=== PATIENT | male | born 1985 | race Hispanic/Latino ===

== ENCOUNTER 2020-03-29 05:39 | Emergency (ER) | payer SELFPAY ==
[2020-03-29] MEDS ORDERED: dexAMETHasone 10 MG/ML VIAL ONE (06:44)
[2020-03-29] MEDS ORDERED: NA CHLORIDE 0.9% 1,000 ML ONE (06:45)
[2020-03-29] MEDS ORDERED: KETOROLAC 30 MG/ML INJ ONE (06:45)
[2020-03-29] MEDS ORDERED: FAMOTIDINE 20 MG/2 ML VIAL IV ONE (06:45)
[2020-03-29 06:55] LABS: Absolute Lymphocytes (CBC) 2.3 K/uL (0.7-4.9); Basophils % 0.9 % (0-1.3); Lymphocytes % 11.7 % (15.3-44.8); MPV 9.1 fL (7.6-11.3); RBC Red Blood Cell Count 5.09 M/uL (4.33-5.43)
[2020-03-29 07:19] LABS: ALT/SGPT 156 U/L (12-78); AST/SGOT 54 U/L (15-37); Alkaline Phosphatase 154 U/L (45-117); BUN Blood Urea Nitrogen 18 mg/dL (7-18); Bicarbonate 25 mmol/L (21-32); Bilirubin Total 0.2 mg/dL (0.2-1.0); Glucose Level 253 mg/dL (74-106); Potassium 3.7 mmol/L (3.5-5.1); Protein, Total 6.5 g/dL (6.4-8.2); Sodium Level 136 mmol/L (136-145)
--- NOTE | 2020-03-29 07:24 | EDPHYS ---
Physician Documentation [facility] Name: Charli Foy Age: 34 yrs Sex: Male : 1985 Arrival Date: 03/29/2020 Time: 05:40 Bed 2 Private MD: ED Physician Johny Valentine HPI: 03/29 06:15 This 34 yrs old Male presents to ER via Wheelchair with complaints of Knee mallory Injury. 06:15 The patient presents with decreased range of motion, pain, that is acute. The mallory complaints affect the right leg and left leg. Context: The problem was sustained at an unknown site. Onset: The symptoms/episode began/occurred 4 day(s) ago. Modifying factors: The symptoms are alleviated by elevating leg, remaining still, the symptoms are aggravated by movement, weight bearing. Associated signs and symptoms: The patient has no apparent associated signs or symptoms. Treatment prior to arrival includes: prescription medications, nsaids. Severity of symptoms: At their worst the symptoms were moderate, in the emergency department the symptoms are unchanged. The patient has not experienced similar symptoms in the past. Historical: - Allergies: 08:24 No Known Allergies; hb - Home Meds: 06:06 None [Active]; ea - PMHx: 06:06 None; ea - PSHx: 06:06 None; ea - Immunization history:: Adult Immunizations up to date. - Social history:: Smoking status: Patient reports the use of cigarette tobacco products, smokes one-half pack cigarettes per day. - Family history:: not pertinent. ROS: 06:15 Constitutional: Negative for fever, chills, and weight loss, Eyes: Negative for injury, mallory pain, redness, and discharge, ENT: Negative for injury, pain, and discharge, Neck: Negative for injury, pain, and swelling, Cardiovascular: Negative for chest pain, palpitations, and edema, Respiratory: Negative for shortness of breath, cough, wheezing, and pleuritic chest pain, Abdomen/GI: Negative for abdominal pain, nausea, vomiting, diarrhea, and constipation, Back: Negative for injury and pain, : Negative for injury, bleeding, discharge, and swelling, Skin: Negative for injury, rash, and discoloration, Neuro: Negative for headache, weakness, numbness, tingling, and seizure, Psych: Negative for depression, anxiety, suicide ideation, homicidal ideation, and hallucinations, Allergy/Immunology: Negative for hives, rash, and allergies, Endocrine: Negative for neck swelling, polydipsia, polyuria, polyphagia, and marked weight changes, Hematologic/Lymphatic: Negative for swollen nodes, abnormal bleeding, and unusual bruising. 06:15 MS/extremity: Positive for decreased range of motion, pain, of the lateral aspect of left knee, left lateral ankle, posterior aspect of left knee, medial aspect of left knee, left medial ankle, left knee and anterior aspect of left ankle. Exam: 06:15 Constitutional: This is a well developed, well nourished patient who is awake, alert, mallory and in no acute distress. Head/Face: Normocephalic, atraumatic. Eyes: Pupils equal round and reactive to light, extra-ocular motions intact. Lids and lashes normal. Conjunctiva and sclera are non-icteric and not injected. Cornea within normal limits. Periorbital areas with no swelling, redness, or edema. ENT: Nares patent. No nasal discharge, no septal abnormalities noted. Tympanic membranes are normal and external auditory canals are clear. Oropharynx with no redness, swelling, or masses, exudates, or evidence of obstruction, uvula midline. Mucous membranes moist. Neck: Trachea midline, no thyromegaly or masses palpated, and no cervical lymphadenopathy. Supple, full range of motion without nuchal rigidity, or vertebral point tenderness. No Meningismus. Chest/axilla: Normal chest wall appearance and motion. Nontender with no deformity. No lesions are appreciated. Cardiovascular: Regular rate and rhythm with a normal S1 and S2. No gallops, murmurs, or rubs. Normal PMI, no JVD. No pulse deficits. Respiratory: Lungs have equal breath sounds bilaterally, clear to auscultation and percussion. No rales, rhonchi or wheezes noted. No increased work of breathing, no retractions or nasal flaring. Abdomen/GI: Soft, non-tender, with normal bowel sounds. No distension or tympany. No guarding or rebound. No evidence of tenderness throughout. Back: No spinal tenderness. No costovertebral tenderness. Full range of motion. Male : Normal genitalia with no discharge or lesions. Skin: Warm, dry with normal turgor. Normal color with no rashes, no lesions, and no evidence of cellulitis. Neuro: Awake and alert, GCS 15, oriented to person, place, time, and situation. Cranial nerves II-XII grossly intact. Motor strength 5/5 in all extremities. Sensory grossly intact. Cerebellar exam normal. Normal gait. Psych: Awake, alert, with orientation to person, place and time. Behavior, mood, and affect are within normal limits. 06:15 Musculoskeletal/extremity: ROM: limited active range of motion due to pain, limited passive range of motion due to pain, in the right leg and left leg, Circulation is intact in all extremities. Sensation intact. DVT Exam: no swelling, negative Homans' sign noted on exam, no appreciated bluish discoloration, no erythema, no increased warmth, pain, tenderness. 07:17 Musculoskeletal/extremity: Joints: no effusion in joints, normal passive rom of both mallory knees and ankles, no cellulitis. Vital Signs: 06:02 BP 141 / 78; Pulse 75; Resp 18; Temp 98.3; Pulse Ox 99% ; Weight 90.72 kg; Height 5 ft. ea 3 in. (160.02 cm); Pain 9/10; 06:02 Body Mass Index 35.43 (90.72 kg, 160.02 cm) ea MDM: 06:05 Patient medically screened. [facility] 06:20 Differential diagnosis: contusion, tendonitis. Data reviewed: vital signs, nurses [facility] notes, lab test result(s). 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 Counseling: I had a detailed discussion with the patient and/or guardian regarding: the historical points, exam findings, and any diagnostic results supporting the discharge/admit diagnosis. 03/29 06:13 Order name: CBC with Diff [facility] 03/29 06:13 Order name: Comprehensive Metabolic Panel; Complete Time: 07:21 [facility] 03/29 06:13 Order name: Sed Rate [facility] 03/29 07:23 Order name: Blood Culture Adult (2) [facility] 03/29 08:12 Order name: Manual Differential EDMS Administered Medications: 06:46 Drug: TORadol 30 mg Route: IVP; Site: left antecubital; ea 07:30 Follow up: Response: No adverse reaction hb 06:47 Drug: NS 0.9% 1000 ml Route: IV; Rate: 1 bolus; Site: left antecubital; ea 07:30 Follow up: Response: No adverse reaction; IV Status: Completed infusion; IV Intake: hb 1000ml 06:47 Drug: Decadron - Dexamethasone 10 mg Route: IVP; Site: left antecubital; ea 07:30 Follow up: Response: No adverse reaction hb 06:47 Drug: Pepcid 20 mg Route: IVP; Site: left antecubital; ea 07:30 Follow up: Response: No adverse reaction hb 08:15 Drug: morphine 4 mg Route: IVP; Site: left antecubital; hb 08:38 Follow up: Response: No adverse reaction hb 08:15 Drug: Zofran (Ondansetron) 4 mg Route: IVP; Site: left antecubital; hb 08:38 Follow up: Response: No adverse reaction hb 08:25 Drug: Rocephin 2 grams Route: IV; Rate: per protocol; Site: left antecubital; hb 08:26 Follow up: Response: No adverse reaction; IV Status: Completed infusion; IV Intake: 20mlhb Disposition: 03/29/20 07:24 Discharged to Home. Impression: Pain in left knee, Pain in right knee, Pain in left ankle and joints of left foot, Pain in right ankle and joints of right foot, Elevated white blood cell count, Hyperglycemia, unspecified. - Condition is Stable. - Discharge Instructions: Joint Pain, Arthritis, Hyperglycemia, Musculoskeletal Pain, Knee Pain, Cryotherapy, Immj-ht-Phml, Arthritis, Tkur-wz-Jnnp, Ankle Pain, Cryotherapy, Type 2 Diabetes Mellitus, Diagnosis, Adult, Wiuv-nm-Rsmc, Knee Pain, Pyvd-gm-Dpkx, Joint Pain, Okya-fe-Rbqi. - Prescriptions for Ibuprofen 600 mg Oral Tablet - take 1 tablet by ORAL route every 6 hours As needed take with food; 30 tablet. Tylenol- Codeine #3 300-30 mg Oral Tablet - take 2 tablets by ORAL route every 6 hours As needed; 20 tablet. Prednisone 20 mg Oral Tablet - take 2 tablet by ORAL route once daily for 5 days; 10 tablet. - Medication Reconciliation Form, Thank You Letter, Antibiotic Education, Prescription Opioid Use, Work release form form. - Follow up: Private Physician; When: 2 - 3 days; Reason: If symptoms return, Recheck today's complaints, Continuance of care, Re-evaluation by your physician. Follow up: Dr. Selvin Meyers; When: 2 - 3 days; Reason: Recheck today's complaints, Re-evaluation by your physician. - Problem is new. - Symptoms have improved. Signatures: Dispatcher [employer] EDJohny Carreon MD MD cha Smirch, Shelby, RN RN ss Baxter, Heather, RN RN hb Antunez, Elena, RN RN ea Corrections: (The following items were deleted from the chart) 08:56 07:24 03/29/2020 07:24 Discharged to Home. Impression: Pain in left knee; Pain in right ss knee; Pain in left ankle and joints of left foot; Pain in right ankle and joints of right foot; Elevated white blood cell count; Hyperglycemia, unspecified. Condition is Stable. Discharge Instructions: Joint Pain, Arthritis, Musculoskeletal Pain, Knee Pain, Cryotherapy, Xgpc-nw-Aaaw, Arthritis, Zicu-nn-Vgho, Ankle Pain, Cryotherapy, Knee Pain, Tfoc-nf-Zggy, Joint Pain, Nzly-dl-Juqt. Prescriptions for Ibuprofen 600 mg Oral Tablet - take 1 tablet by ORAL route every 6 hours As needed take with food; 30 tablet, Tylenol-Codeine #3 300-30 mg Oral Tablet - take 2 tablets by ORAL route every 6 hours As needed; 20 tablet, Medrol (Ramiro) 4 mg Oral Tablets, Dose Pack - take 1 tablet by ORAL route as directed - follow package instructions; 1 packet. and Forms are Medication Reconciliation Form, Thank You Letter, Antibiotic Education, Prescription Opioid Use. Follow up: Private Physician; When: 2 - 3 days; Reason: If symptoms return, Recheck today's complaints, Continuance of care, Re-evaluation by your physician. Follow up: Dr. Selvin Meyers; When: 2 - 3 days; Reason: Recheck today's complaints, Re-evaluation by your physician. Problem is new. Symptoms have improved. mallory
--- NOTE | 2020-03-29 07:24 | ER ---
Nurse's Notes [facility] Name: Charli Foy Age: 34 yrs Sex: Male : 1985 Arrival Date: 03/29/2020 Time: 05:40 Bed 2 Private MD: Diagnosis: Pain in left knee;Pain in right knee;Pain in left ankle and joints of left foot;Pain in right ankle and joints of right foot;Elevated white blood cell count;Hyperglycemia, unspecified Presentation: 03/29 06:02 Chief complaint: Patient states: Reports he has been having pain to quinn knees and ea ankles for the past 3 to 4 days. Denies trauma. Coronavirus screen: At this time, the client does not indicate any symptoms associated with coronavirus-19. Ebola Screen: No symptoms or risks identified at this time. Initial Sepsis Screen: Does the patient meet any 2 criteria? No. Patient's initial sepsis screen is negative. Does the patient have a suspected source of infection? No. Patient's initial sepsis screen is negative. Risk Assessment: Do you want to hurt yourself or someone else? Patient reports no desire to harm self or others. Onset of symptoms was March 29, 2020. 06:02 Method Of Arrival: Wheelchair ea 06:02 Acuity: DIMITRIS 3 ea Triage Assessment: 06:06 General: Appears in no apparent distress. Behavior is appropriate for age. Pain: ea Complains of pain in right knee and left knee. Musculoskeletal: Circulation, motion, and sensation intact. Injury Description: denies injury. Historical: - Allergies: 08:24 No Known Allergies; hb - Home Meds: 06:06 None [Active]; ea - PMHx: 06:06 None; ea - PSHx: 06:06 None; ea - Immunization history:: Adult Immunizations up to date. - Social history:: Smoking status: Patient reports the use of cigarette tobacco products, smokes one-half pack cigarettes per day. - Family history:: not pertinent. Screenin:05 Abuse screen: Denies threats or abuse. Nutritional screening: No deficits noted. ea Tuberculosis screening: No symptoms or risk factors identified. Fall Risk None identified. Assessment: 06:06 Reassessment: see triage assessment. ea Vital Signs: 06:02 BP 141 / 78; Pulse 75; Resp 18; Temp 98.3; Pulse Ox 99% ; Weight 90.72 kg; Height 5 ft. ea 3 in. (160.02 cm); Pain 9/10; 06:02 Body Mass Index 35.43 (90.72 kg, 160.02 cm) ea ED Course: 05:40 Patient arrived in ED. cf2 06:05 Triage completed. ea 06:05 Johny Valentine MD is Attending Physician. mallory 06:05 Patient has correct armband on for positive identification. Bed in low position. Call ea light in reach. Side rails up X2. Pulse ox on. NIBP on. 06:05 Patient placed in an exam room, on a stretcher, on pulse oximetry. ea 06:46 Inserted saline lock: 20 gauge in left antecubital area, using aseptic technique. Blood ea collected. 07:23 Selvin Meyers MD is Referral Physician. mallory 07:53 Hanh Tavares, GAYLE is Primary Nurse. hb 08:48 No provider procedures requiring assistance completed. IV discontinued, intact, hb bleeding controlled, No redness/swelling at site. Administered Medications: 06:46 Drug: TORadol 30 mg Route: IVP; Site: left antecubital; ea 07:30 Follow up: Response: No adverse reaction hb 06:47 Drug: NS 0.9% 1000 ml Route: IV; Rate: 1 bolus; Site: left antecubital; ea 07:30 Follow up: Response: No adverse reaction; IV Status: Completed infusion; IV Intake: hb 1000ml 06:47 Drug: Decadron - Dexamethasone 10 mg Route: IVP; Site: left antecubital; ea 07:30 Follow up: Response: No adverse reaction hb 06:47 Drug: Pepcid 20 mg Route: IVP; Site: left antecubital; ea 07:30 Follow up: Response: No adverse reaction hb 08:15 Drug: morphine 4 mg Route: IVP; Site: left antecubital; hb 08:38 Follow up: Response: No adverse reaction hb 08:15 Drug: Zofran (Ondansetron) 4 mg Route: IVP; Site: left antecubital; hb 08:38 Follow up: Response: No adverse reaction hb 08:25 Drug: Rocephin 2 grams Route: IV; Rate: per protocol; Site: left antecubital; hb 08:26 Follow up: Response: No adverse reaction; IV Status: Completed infusion; IV Intake: 20mlhb Intake: 07:30 IV: 1000ml; Total: 1000ml. hb 08:26 IV: 20ml; Total: 1020ml. hb Outcome: 07:24 Discharge ordered by . mallory 08:48 Discharged to home ambulatory. hb 08:48 Condition: stable 08:48 Discharge instructions given to patient, Instructed on discharge instructions, follow up and referral plans. medication usage, Demonstrated understanding of instructions, follow-up care, medications, Prescriptions given X 3. 08:56 Patient left the ED. Addendum: 04/02/2020 10:02 Addendum: Culture Results: Positive blood culture. No further action required. Other: s v Pt feeling better, denies chills/fever at home. Pt reports that he will be finding a PCP for pain management.. Signatures: Yessi An, RN Johny Hernandez MD MD cha Smirch, Shelby, RN RN ss Baxter, Heather, RN RN hb Antunez, Elena RN Jhony De LaR osa ea 2
[2020-03-29 08:12] LABS: Blood Morphology Comment NOT SEEN (NOT SEEN); Platelet Estimate ADEQ
[2020-03-29 09:01] VITALS: BP 141/78; TEMP 98.3; O2SAT 99
== END 2020-03-29 08:56 | disposition home or self-care (01) ==
LOC: ER 05:39
DX: M25.561 Pain in right knee (principal); M25.562 Pain in left knee; M25.571 Pain in right ankle and joints of right foot; M25.572 Pain in left ankle and joints of left foot; D72.829 Elevated white blood cell count, unspecified; R73.9 Hyperglycemia, unspecified; F17.210 Nicotine dependence, cigarettes, uncomplicated
CPT/HCPCS: 36415; 80053; 85025; 85652; 87040; 87077; 87186; 87205; 96361; 96374; 96375; 99284; J1100; J7030

== ENCOUNTER 2022-01-02 21:10 | Emergency (ER) | payer SELFPAY ==
[2022-01-02] MEDS ORDERED: dexAMETHasone 10 MG/ML VIAL ONE (21:28)
--- NOTE | 2022-01-02 22:03 | ER ---
Nurse's Notes [facility] Name: Charli Foy Age: 36 yrs Sex: Male : 1985 Arrival Date: 01/02/2022 Time: 21:14 Bed 11 Private MD: Diagnosis: Acute tonsillitis, unspecified Presentation: 01/02 21:18 Chief complaint: Sore throat x 4 days, fever x 2 days. TMAX 101. Coronavirus screen: hb Client presents with at least one sign or symptom that may indicate coronavirus-19. Standard/surgical mask placed on the client. Provider contacted for isolation considerations. Ebola Screen: No symptoms or risks identified at this time. Initial Sepsis Screen: Does the patient meet any 2 criteria? No. Patient's initial sepsis screen is negative. Does the patient have a suspected source of infection? No. Patient's initial sepsis screen is negative. Risk Assessment: Do you want to hurt yourself or someone else? Patient reports no desire to harm self or others. Onset of symptoms was December 29, 2021. 21:18 Method Of Arrival: Ambulatory 21:18 Acuity: DIMITRIS 4 hb Triage Assessment: 21:20 General: Appears in no apparent distress. Behavior is calm, cooperative. Pain: Pain hb currently is 8 out of 10 on a pain scale. Neuro: Level of Consciousness is awake, alert, obeys commands, Oriented to person, place, time, situation. Cardiovascular: Patient's skin is warm and dry. Respiratory: Respiratory effort is even, unlabored, Respiratory pattern is regular, symmetrical. Historical: - Allergies: 21:20 No Known Allergies; hb - Home Meds: 21:20 None [Active]; hb - PMHx: 21:20 None; hb - PSHx: 21:20 None; hb - Immunization history:: Adult Immunizations up to date, Client reports having NOT received the Covid vaccine. - Social history:: Smoking status: Patient denies any tobacco usage or history of. Screenin:40 Abuse screen: Denies threats or abuse. Denies injuries from another. Nutritional kb3 screening: No deficits noted. Tuberculosis screening: No symptoms or risk factors identified. Fall Risk None identified. Assessment: 21:39 General: Appears in no apparent distress. Behavior is calm, cooperative, Pt reports kb3 sore throat x4 days with fever x2 kartik. EENT: Throat is reddened. Vital Signs: 21:18 BP 136 / 86; Pulse 88; Resp 16; Temp 99.1; Pulse Ox 100% on R/A; Weight 90.72 kg; hb Height 5 ft. 8 in. (172.72 cm); Pain 8/10; 21:18 Body Mass Index 30.41 (90.72 kg, 172.72 cm) hb ED Course: 21:14 Patient arrived in ED. ja2 21:16 Demet[facility] Desou[facility]C [facility]. kb 21:16 Jb Melendez MD is Attending Physician. kb 21:20 Triage completed. hb 21:20 Arm band placed on. hb 21:37 Tessa Justice, RN is Primary Nurse. kb3 21:38 Strep Sent. kb3 21:40 Patient has correct armband on for positive identification. Call light in reach. Side kb3 rails up X 1. 21:40 No provider procedures requiring assistance completed. Patient did not have IV access kb3 during this emergency room visit. Administered Medications: 21:32 Drug: Decadron (dexamethasone) 10 mg Route: PO; kb3 22:09 Drug: Augmentin (Amoxicillin-Clavulanate) 875 mg Route: PO; kb3 Medication: 21:40 VIS not applicable for this client. kb3 Outcome: 22:02 Discharge ordered by . kb 22:09 Patient left the ED. kb3 Signatures: Demetria Desouza FNP-C FNP-Ckb Baxter, Heather, RN RN Evy Tavarez [facility] Tessa Justice, RN RN kb3
--- NOTE | 2022-01-02 22:03 | EDPHYS ---
Physician Documentation [facility] Name: Charli Foy Age: 36 yrs Sex: Male : 1985 Arrival Date: 01/02/2022 Time: 21:14 Bed 11 Private MD: ED Physician Jb Melendez HPI: 01/02 22:01 This 36 yrs old Male presents to ER via Ambulatory with complaints of Throat kb Pain. 22:01 The patient presents with sore throat. The patient describes throat pain as constant. kb Onset: The symptoms/episode began/occurred 4 day(s) ago. Severity of symptoms: At their worst the symptoms were moderate, in the emergency department the symptoms are unchanged. Modifying factors: The symptoms are alleviated by nothing, the symptoms are aggravated by swallowing, Patient's oral intake status: good. Associated signs and symptoms: Pertinent positives: fever, Sore throat. The patient has not experienced similar symptoms in the past. The patient has not recently seen a physician. Historical: - Allergies: 21:20 No Known Allergies; hb - Home Meds: 21:20 None [Active]; hb - PMHx: 21:20 None; hb - PSHx: 21:20 None; hb - Immunization history:: Adult Immunizations up to date, Client reports having NOT received the Covid vaccine. - Social history:: Smoking status: Patient denies any tobacco usage or history of. ROS: 22:01 Respiratory: Negative for shortness of breath, cough, wheezing, and pleuritic chest kb pain. 22:01 Constitutional: Positive for fever. 22:01 ENT: Positive for sore throat. 22:01 All other systems are negative. Exam: 22:01 Constitutional: This is a well developed, well nourished patient who is awake, alert, kb and in no acute distress. Head/Face: Normocephalic, atraumatic. Cardiovascular: Regular rate and rhythm with a normal S1 and S2. No gallops, murmurs, or rubs. No pulse deficits. Respiratory: Respirations even and unlabored. No increased work of breathing. Talking in full sentences Skin: Warm, dry with normal turgor. Normal color. MS/ Extremity: Pulses equal, no cyanosis. Neurovascular intact. Full, normal range of motion. Neuro: Awake and alert, GCS 15, oriented to person, place, time, and situation. Moves all extremities. Normal gait. Psych: Awake, alert, with orientation to person, place and time. Behavior, mood, and affect are within normal limits. 22:01 ENT: Posterior pharynx: Airway: normal, no evidence of obstruction, Tonsils: bilaterally enlarged, with erythema, Uvula: normal, midline, swelling, that is moderate, erythema, that is moderate. Vital Signs: 21:18 BP 136 / 86; Pulse 88; Resp 16; Temp 99.1; Pulse Ox 100% on R/A; Weight 90.72 kg; hb Height 5 ft. 8 in. (172.72 cm); Pain 8/10; 21:18 Body Mass Index 30.41 (90.72 kg, 172.72 cm) hb MDM: 21:21 Patient medically screened. kb 22:00 Data reviewed: vital signs, nurses notes. Data interpreted: Pulse oximetry: on room air kb is 100 %. Interpretation: normal. Counseling: I had a detailed discussion with the patient and/or guardian regarding: the historical points, exam findings, and any diagnostic results supporting the discharge/admit diagnosis, radiology results, the need for outpatient follow up, an ENT specialist, to return to the emergency department if symptoms worsen or persist or if there are any questions or concerns that arise at home. 01/02 21:25 Order name: Strep; Complete Time: 22:00 kb 01/02 21:50 Order name: Throat Culture EDMS Administered Medications: 21:32 Drug: Decadron (dexamethasone) 10 mg Route: PO; kb3 22:09 Drug: Augmentin (Amoxicillin-Clavulanate) 875 mg Route: PO; kb3 Disposition: 01/03 06:01 Co-signature as Attending Physician, Jb Melendez MD I agree with the assessment and kdr plan of care. Disposition Summary: 01/02/22 22:02 Discharge Ordered Location: Home kb Condition: Stable kb Diagnosis - Acute tonsillitis, unspecified kb Followup: kb - With: Emergency Department - When: As needed - Reason: Worsening of condition Followup: kb - With: Private Physician - When: 2 - 3 days - Reason: Recheck today's complaints, Continuance of care, Re-evaluation by your physician Discharge Instructions: - Discharge Summary Sheet kb - Tonsillitis, Asxu-[id number]-[id number] kb Forms: - Medication Reconciliation Form kb - Thank You Letter kb - Antibiotic Education kb - Prescription Opioid Use kb Prescriptions: - Augmentin 875-125 mg Oral Tablet - take 1 tablet by ORAL route every 12 hours for 10 days; 20 tablet; Refills: 0, kb Product Selection Permitted Signatures: Dispatcher [employer] EDMS Demetria Desouza, HÉCTORC Jb Alanis MD MD kdr Baxter, Heather RN RN Tessa Justice RN RN kb3
[2022-01-02] MEDS ORDERED: AMOX/K CLAV 875 MG TAB ONE (22:08)
[2022-01-02 23:02] VITALS: BP 136/86; TEMP 99.1; O2SAT 100
== END 2022-01-02 22:09 | disposition home or self-care (01) ==
LOC: ER 21:10
DX: J03.90 Acute tonsillitis, unspecified (principal)
CPT/HCPCS: 87070; 87081; 99283; J1100

== ENCOUNTER 2022-07-17 22:43 | Emergency (ER) | payer SELFPAY ==
[2022-07-17 23:42] LABS: Specific Gravity 1.028 (1.005-1.030); Urine Bacteria None Seen /HPF (<20); Urine Bilirubin NEGATIVE (Negative); Urine Blood Negative (Negative); Urine Clarity Clear (Clear); Urine Color Yellow (Yellow); Urine Glucose TRACE (Negative); Urine Mucus 2+ /HPF (None Seen); Urine Protein TRACE (Negative); Urine RBC <5 /HPF (None Seen); Urine Urobilinogen Normal (Normal)
[2022-07-18] MEDS ORDERED: INSULIN -REGULAR HUMAN 50 UNIT/0.5 ML ML ONE (00:15)
--- NOTE | 2022-07-18 00:19 | ER ---
Nurse's Notes [facility] Name: Charli Foy Age: 37 yrs Sex: Male : 1985 Arrival Date: 07/17/2022 Time: 22:43 Bed 16 Private MD: Diagnosis: Type 2 diabetes mellitus with hyperglycemia Presentation: 07/17 23:09 Chief complaint: Patient states: I feel like its hard to pee. I feel like i cant get a kd3 lot out. I feel some pain in my bladder. This has been going on for about 2 to 3 days ago. Coronavirus screen: Vaccine status: Patient reports being unvaccinated. Ebola Screen: No symptoms or risks identified at this time. Initial Sepsis Screen: Does the patient meet any 2 criteria? No. Patient's initial sepsis screen is negative. Does the patient have a suspected source of infection? No. Patient's initial sepsis screen is negative. Risk Assessment: Do you want to hurt yourself or someone else? Patient reports no desire to harm self or others. Onset of symptoms was July 17, 2022. 23:09 Method Of Arrival: Ambulatory kd3 23:09 Acuity: DIMITRIS 3 kd3 Triage Assessment: 23:13 General: Appears in no apparent distress. Behavior is calm, cooperative. Pain: kd3 Complains of pain in suprapubic area. Neuro: Level of Consciousness is awake, alert, obeys commands, Oriented to person, place, time, situation. Respiratory: Airway is patent Trachea midline Respiratory effort is even, unlabored, Respiratory pattern is regular, symmetrical. Historical: - Allergies: 23:13 No Known Allergies; kd3 - Immunization history:: Adult Immunizations up to date. - Social history:: Smoking status: Patient reports the use of cigarette tobacco products, smokes one pack cigarettes per day. Screenin/21 00:26 [facility] ED Fall Risk Assessment (Adult) History of falling in the last 3 months, sg5 including since admission No falls in past 3 months (0 pts). Abuse screen: Denies threats or abuse. Nutritional screening: No deficits noted. Tuberculosis screening: No symptoms or risk factors identified. Assessment: 00:26 General: Appears in no apparent distress. comfortable. Pain: Complains of pain in sg5 suprapubic area. Neuro: Level of Consciousness is awake, alert, obeys commands, Oriented to person, place, time, situation, Appropriate for age. Cardiovascular: Capillary refill < 3 seconds Patient's skin is warm and dry. Respiratory: Airway is patent Respiratory effort is even, unlabored. GI: Abdomen is round non-distended. : Reports burning with urination. EENT: No signs and/or symptoms were reported regarding the EENT system. Derm: No signs and/or symptoms reported regarding the dermatologic system. Musculoskeletal: No signs and/or symptoms reported regarding the musculoskeletal system. Vital Signs: 07/17 23:09 BP 151 / 91; Pulse 88; Resp 17; Temp 98.6(O); Pulse Ox 97% on R/A; Weight 90.72 kg; kd3 Height 5 ft. 2 in. ; 07/18 00:28 BP 149 / 89; Pulse 86; Resp 16; Pulse Ox 98% on R/A; sg5 07/17 23:09 Body Mass Index 36.58 (90.72 kg, 157.48 cm) kd3 ED Course: 07/17 22:46 Patient arrived in ED. jj6 22:47 Stella Luna FNP-C is PHCP. snw 22:48 Huang Whitaker MD is Attending Physician. snw 23:13 Triage completed. kd3 23:13 Arm band placed on right wrist. kd3 23:40 Yessi Morrison, GAYLE is Primary Nurse. sg5 23:45 Urine W/Microscopic (UAM) Sent. bc6 07/18 00:26 Patient has correct armband on for positive identification. Bed in low position. Call sg5 light in reach. Side rails up X 1. Adult w/ patient. Valuables Left with patient. 00:26 No provider procedures requiring assistance completed. Patient did not have IV access sg5 during this emergency room visit. Administered Medications: 00:09 Drug: Insulin Regular Human Sub-Q 5 units {Co-Signature: kd3 (Patti Carrington RN).} sg5 Route: Sub-Q; Site: abdomen; Medication: 00:26 VIS not applicable for this client. sg5 Outcome: 00:19 Discharge ordered by . snw 00:41 Discharged to home with significant other. sg5 00:41 Condition: good 00:41 Discharge instructions given to patient, Instructed on discharge instructions, follow up and referral plans. 00:41 Patient left the ED. sg5 Signatures: Stella Luna, SENIOR GAME DEVELOPER-C SENIOR GAME DEVELOPER-Csnw Gloria Bonner jj6 Patti Carrington, RN RN kd3 [employer]6 Yessi Morrison RN RN sg5 Patti Carrington RN kd3
--- NOTE | 2022-07-18 00:19 | EDPHYS ---
Physician Documentation [facility] Name: Charli Foy Age: 37 yrs Sex: Male : 1985 Arrival Date: 07/17/2022 Time: 22:43 Bed 16 Private MD: ED Physician Huang Whitaker HPI: 07/17 23:08 This 37 yrs old Male presents to ER via Unassigned with complaints of Pain snw With Urination. 23:08 Onset: The symptoms/episode began/occurred acutely, 2 day(s) ago, and became snw persistent. 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 States he has been taking an unknown antibiotic - will try to get pkt and give name. suprapubic pain, denies back pain, hematuria, fever. The patient has not experienced similar symptoms in the past. It is unknown whether or not the patient has recently seen a physician. Historical: - Allergies: 23:13 No Known Allergies; kd3 - Immunization history:: Adult Immunizations up to date. - Social history:: Smoking status: Patient reports the use of cigarette tobacco products, smokes one pack cigarettes per day. ROS: 23:08 Constitutional: Negative for fever, chills, and weight loss, Eyes: Negative for injury, snw pain, redness, and discharge, ENT: Negative for injury, pain, and discharge, Neck: Negative for injury, pain, and swelling, Cardiovascular: Negative for chest pain, palpitations, and edema, Respiratory: Negative for shortness of breath, cough, wheezing, and pleuritic chest pain, Back: Negative for injury and pain, MS/Extremity: Negative for injury and deformity, Skin: Negative for injury, rash, and discoloration, Neuro: Negative for headache, weakness, numbness, tingling, and seizure, Psych: Negative for depression, anxiety, suicide ideation, homicidal ideation, and hallucinations. 23:08 Abdomen/GI: Positive for abdominal pain, of the suprapubic area. 23:08 : Positive for urinary symptoms, urinary frequency, small amounts, burning with urination. Exam: 23:08 Constitutional: This is a well developed, well nourished patient who is awake, alert, snw and in no acute distress. Head/Face: Normocephalic, atraumatic. Eyes: Pupils equal round and reactive to light, extra-ocular motions intact. Lids and lashes normal. Conjunctiva and sclera are non-icteric and not injected. Cornea within normal limits. Periorbital areas with no swelling, redness, or edema. ENT: Nares patent. No nasal discharge, no septal abnormalities noted. Tympanic membranes are normal and external auditory canals are clear. Oropharynx with no redness, swelling, or masses, exudates, or evidence of obstruction, uvula midline. Mucous membranes moist. Neck: Trachea midline, no thyromegaly or masses palpated, and no cervical lymphadenopathy. Supple, full range of motion without nuchal rigidity, or vertebral point tenderness. No Meningismus. Chest/axilla: Normal chest wall appearance and motion. Nontender with no deformity. No lesions are appreciated. Cardiovascular: Regular rate and rhythm with a normal S1 and S2. No gallops, murmurs, or rubs. Normal PMI, no JVD. No pulse deficits. Respiratory: Lungs have equal breath sounds bilaterally, clear to auscultation and percussion. No rales, rhonchi or wheezes noted. No increased work of breathing, no retractions or nasal flaring. Back: No spinal tenderness. No costovertebral tenderness. Full range of motion. Skin: Warm, dry with normal turgor. Normal color with no rashes, no lesions, and no evidence of cellulitis. MS/ Extremity: Pulses equal, no cyanosis. Neurovascular intact. Full, normal range of motion. Neuro: Awake and alert, GCS 15, oriented to person, place, time, and situation. Cranial nerves II-XII grossly intact. Motor strength 5/5 in all extremities. Sensory grossly intact. Cerebellar exam normal. Normal gait. Psych: Awake, alert, with orientation to person, place and time. Behavior, mood, and affect are within normal limits. 23:08 Abdomen/GI: Inspection: abdomen appears normal, Bowel sounds: normal, Palpation: mild abdominal tenderness, in the suprapubic area. Vital Signs: 23:09 BP 151 / 91; Pulse 88; Resp 17; Temp 98.6(O); Pulse Ox 97% on R/A; Weight 90.72 kg; kd3 Height 5 ft. 2 in. ; 07/18 00:28 BP 149 / 89; Pulse 86; Resp 16; Pulse Ox 98% on R/A; sg5 07/17 23:09 Body Mass Index 36.58 (90.72 kg, 157.48 cm) kd3 MDM: 07/17 23:10 Patient medically screened. snw 07/18 00:19 Differential diagnosis: viral Infection, bacterial infection, DM. Data reviewed: vital snw signs, nurses notes. I considered the following discharge prescriptions or medication management in the emergency department Medications were administered in the Emergency Department. See MAR. Historians other than the Patient: Spouse/Significant Other: . Counseling: I had a detailed discussion with the patient and/or guardian regarding: the historical points, exam findings, and any diagnostic results supporting the discharge/admit diagnosis, lab results, the need for outpatient follow up, to return to the emergency department if symptoms worsen or persist or if there are any questions or concerns that arise at home. Special discussion: I have referred the patient to see his PCP for further evaluation of high blood pressure. Based on the history and exam findings, there is no indication for further emergent testing or inpatient evaluation. I discussed with the patient/guardian the need to see the primary care provider for further evaluation of the symptoms. ED course: Pt needs follow up with PCP for new onset DM, HTN. 07/17 23:08 Order name: Urine W/Microscopic (UAM); Complete Time: 23:58 snw 07/17 23:56 Order name: Glucose, Ancillary Testing; Complete Time: 23:58 EDMS 07/17 23:08 Order name: FSBS; Complete Time: 23:45 snw Administered Medications: 00:09 Drug: Insulin Regular Human Sub-Q 5 units {Co-Signature: kd3 (Patti Carrington RN).} sg5 Route: Sub-Q; Site: abdomen; Disposition Summary: 07/18/22 00:19 Discharge Ordered Location: Home snw Condition: Stable snw Diagnosis - Type 2 diabetes mellitus with hyperglycemia snw Followup: snw - With: Emergency Department - When: As needed - Reason: Worsening of condition Followup: snw - With: Private Physician - When: 1 - 2 days - Reason: Recheck today's complaints, Continuance of care, Re-evaluation by your physician Discharge Instructions: - Discharge Summary Sheet snw - Type 2 Diabetes Mellitus, Diagnosis, Adult snw - Diabetes Mellitus and Sick Day Management snw - Hyperglycemia snw - Diabetes Mellitus and Exercise snw - Diabetes Mellitus and Nutrition, Adult snw - Type 2 Diabetes Mellitus, Self-Care, Adult snw - Living With Diabetes snw Forms: - Work release form snw - Medication Reconciliation Form snw - Thank You Letter snw - Antibiotic Education snw - Prescription Opioid Use snw Prescriptions: - Metformin 500 mg Oral Tablet - take 1 tablet by ORAL route once daily for 7 days Then take 1 tablet with snw morning meals AND evening meals; 21 tablet; Refills: 0, Product Selection Permitted Signatures: Dispatcher [employer] EDMS Stella Luna, GLAZIER SUPERVISOR-C GLAZIER SUPERVISOR-Csnw Patti Carrington RN RN kd3 Yessi Morrison RN RN sg5 Patti Carrington RN kd3
[2022-07-18 00:57] VITALS: TEMP 98.6
[2022-07-18 00:59] VITALS: BP 149/89; O2SAT 98
== END 2022-07-18 00:41 | disposition home or self-care (01) ==
LOC: ER 22:43
DX: E11.65 Type 2 diabetes mellitus with hyperglycemia (principal)
CPT/HCPCS: 81001; 82947; J1815

== ENCOUNTER 2023-02-01 00:52 | Emergency (ER) | payer SELFPAY ==
--- OUTSIDE RECORDS SUMMARY | 2023-02-01 00:55 | XMS REPORT | Continuity of Care Document ---
:1985 Author Organization [facility] t Address [address] [place] [address] Care Team Providers Name Role Phone Unavailable Unavailable Unavailable Problems This patient has no known problems. Allergies, Adverse Reactions, Alerts This patient has no known allergies or adverse reactions. Medications This patient has no known medications. Procedures This patient has no known procedures. Encounters Start End Encounter Admission Attending Care Care Encounter Source Date/Time Date/Time Type Type Clinicians Facility Department ID 2022-10-18 2022-10-18 Outpatient [facility] [id number] 023 Jose 14:26:13 14:26:13 [id number] F Jalen 2022-09-30 2022-09-30 Outpatient [facility] [id number] 023 Jose 15:50:43 15:50:43 [id number] F Jalen Results This patient has no known results.
[2023-02-01] MEDS ORDERED: IBUPROFEN 400 MG TAB ONE (01:31)
--- NOTE | 2023-02-01 01:39 | EDPHYS ---
Physician Documentation [facility] Name: Charli Ace Age: 37 yrs Sex: Male : 1985 Arrival Date: 02/01/2023 Time: 00:52 Bed IW1 Private MD: ED Physician Tanmay Renteria HPI: 02/01 01:12 This 37 yrs old Male presents to ER via Ambulatory with complaints of Knee cp Pain. 01:12 The patient presents with pain, that is acute. The complaints affect the right knee. cp Context: the patient can fully bear weight, the patient is able to ambulate, without difficulty. Onset: The symptoms/episode began/occurred 1 week(s) ago. Modifying factors: the symptoms are aggravated by bending to rest on knee. Associated signs and symptoms: The patient has no apparent associated signs or symptoms. Historical: - Allergies: 00:58 No Known Allergies; lg3 - Home Meds: 00:58 unknown DM med [Active]; lg3 - PMHx: 00:58 Diabetes mellitus; lg3 - PSHx: 00:58 None; lg3 - Immunization history:: Adult Immunizations up to date, Client reports having NOT received the Covid vaccine. Flu vaccine is not up to date. - Social history:: Smoking status: Patient reports the use of cigarette tobacco products, denies chronic smoking, but will smoke occasionally, Patient uses alcohol, only on a social basis. ROS: 01:13 Constitutional: Negative for body aches, chills, fever, cp 01:13 Neck: Negative for pain with movement, pain at rest, stiffness, 01:13 Back: Negative for pain at rest, pain with movement, 01:13 MS/extremity: Positive for pain, tenderness, of the anterior lateral right knee, Negative for decreased range of motion, deformity, injury, 01:13 Neuro: Negative for numbness, weakness, 01:13 All other systems are negative, Exam: 01:15 Constitutional: The patient appears in no acute distress, alert, awake, non-toxic, well cp developed, well nourished, 01:15 Head/Face: Normocephalic, atraumatic. cp 01:15 Musculoskeletal/extremity: Extremities: noted in the right knee: tenderness and mild swelling noted lateral anterior knee along joint line, no AROM restriction, overlying skin with no signs of infection and no joint effusion noted, ROM: full active range of motion, in the right knee, Perfusion: the extremity is normally perfused throughout, Sensation intact. Vital Signs: 00:56 BP 145 / 96; Pulse 77; Resp 17; Temp 98.7(TE); Pulse Ox 100% on R/A; Weight 85.73 kg lg3 (R); Height 5 ft. 2 in. (R); 00:56 Body Mass Index 34.57 (85.73 kg, 157.48 cm) lg3 MDM: 01:05 Patient medically screened. cp 01:36 Differential diagnosis: closed fracture, tendonitis. Data reviewed: vital signs, nurses cp notes, radiologic studies, plain films. Independent interpretation of the following test(s) in the Emergency Department X-Ray: My interpretation is images of right knee negative for fracture. Care significantly affected by the following chronic conditions: Diabetes. 02/01 01:11 Order name: XRAY Knee RIGHT 3 view cp Administered Medications: 01:22 Drug: Ibuprofen PO 800 mg PO once Route: PO; lg3 01:43 Follow up: Response: No adverse reaction; Marked relief of symptoms lg3 Disposition Summary: 02/01/23 01:38 Discharge Ordered Notes: Location: Home cp Problem: new cp Symptoms: are unchanged cp Condition: Stable cp Diagnosis - Pain in right knee cp Followup: cp - With: Selvin Meyers MD - When: 1 week - Reason: pain continues Discharge Instructions: - Discharge Summary Sheet cp - Elastic Bandage and RICE Therapy cp - How to Use a Knee Brace cp - Acute Knee Pain, Adult cp Forms: - Medication Reconciliation Form cp - Thank You Letter cp - Antibiotic Education cp - Prescription Opioid Use cp - Patient Portal Instructions cp - Leadership Thank You Letter cp Prescriptions: - Naprosyn 500 mg Oral tablet - take 1 tablet ORAL route 2 times per day take with food; 20 tablet; Refills: 0, cp Product Selection Permitted Addendum: 02/02/2023 03:09 Co-signature as Attending Physician, Tanmay Renteria MD I agree with the assessment s p4 and plan of care. I reviewed the patient's care provided by the Advanced Practice Provider and agree with the diagnosis and treatment plan. Signatures: Dispatcher [employer] EDNJ Johny Diaz PA PA cp Gibson, Lacie, RN RN lg3 Tanmay Renteria, MD sp4
--- NOTE | 2023-02-01 01:39 | ER ---
Nurse's Notes [facility] Name: Charli Ace Age: 37 yrs Sex: Male : 1985 Arrival Date: 02/01/2023 Time: 00:52 Bed IW1 Private MD: Diagnosis: Pain in right knee Presentation: 02/01 00:56 Chief complaint: Patient states: lateral right knee pain/stretching/grinding X9 days. lg3 Coronavirus screen: Client denies travel out of the [place] in the last 14 days. At this time, the client does not indicate any symptoms associated with coronavirus-19. Ebola Screen: No symptoms or risks identified at this time. Initial Sepsis Screen: Does the patient meet any 2 criteria? No. Patient's initial sepsis screen is negative. Does the patient have a suspected source of infection? No. Patient's initial sepsis screen is negative. Risk Assessment: Do you want to hurt yourself or someone else? Patient reports no desire to harm self or others. Onset of symptoms is unknown. 00:56 Method Of Arrival: Ambulatory lg3 00:56 Acuity: DIMITRIS 4 lg3 Triage Assessment: 00:58 General: Appears in no apparent distress. comfortable, Behavior is calm, cooperative. lg3 Pain: Complains of pain in right knee. EENT: No deficits noted. No signs and/or symptoms were reported regarding the EENT system. Neuro: No deficits noted. Jiménez Agitation-Sedation Scale (RASS): 0 - Alert and Calm Level of Consciousness is awake, alert, obeys commands, Oriented to person, place, time, situation. Cardiovascular: No deficits noted. Denies chest pain, shortness of breath, Capillary refill < 3 seconds Clubbing of nail beds is absent JVD is absent Patient's skin is warm and dry. Respiratory: No deficits noted. Airway is patent Respiratory effort is even, unlabored, Respiratory pattern is regular, symmetrical. GI: No deficits noted. No signs and/or symptoms were reported involving the gastrointestinal system. : No deficits noted. No signs and/or symptoms were reported regarding the genitourinary system. Derm: No deficits noted. No signs and/or symptoms reported regarding the dermatologic system. Skin is intact, is healthy with good turgor, Skin is dry, Skin is normal, Skin temperature is warm. Musculoskeletal: No deficits noted. Circulation, motion, and sensation intact. Range of motion: intact in all extremities, Reports pain in right knee. Historical: - Allergies: 00:58 No Known Allergies; lg3 - Home Meds: 00:58 unknown DM med [Active]; lg3 - PMHx: 00:58 Diabetes mellitus; lg3 - PSHx: 00:58 None; lg3 - Immunization history:: Adult Immunizations up to date, Client reports having NOT received the Covid vaccine. Flu vaccine is not up to date. - Social history:: Smoking status: Patient reports the use of cigarette tobacco products, denies chronic smoking, but will smoke occasionally, Patient uses alcohol, only on a social basis. Screenin:43 [facility] ED Fall Risk Assessment (Adult) History of falling in the last 3 months, lg3 including since admission No falls in past 3 months (0 pts). Abuse screen: Denies threats or abuse. Denies injuries from another. Nutritional screening: No deficits noted. Tuberculosis screening: No symptoms or risk factors identified. Assessment: 01:43 General: see triage assessment. lg3 Vital Signs: 00:56 BP 145 / 96; Pulse 77; Resp 17; Temp 98.7(TE); Pulse Ox 100% on R/A; Weight 85.73 kg lg3 (R); Height 5 ft. 2 in. (R); 00:56 Body Mass Index 34.57 (85.73 kg, 157.48 cm) lg3 ED Course: 00:53 Patient arrived in ED. lg3 00:58 Triage completed. lg3 00:58 Arm band placed on left wrist. lg3 01:05 Johny Diaz PA is PHCP. cp 01:05 Tanmay Renteria MD is Attending Physician. cp 01:26 XRAY Knee RIGHT 3 view In Process Unspecified. EDMS 01:38 Selvin Meyers MD is Referral Physician. cp 01:43 Patient has correct armband on for positive identification. lg3 01:43 No provider procedures requiring assistance completed. Patient did not have IV access lg3 during this emergency room visit. Administered Medications: 01:22 Drug: Ibuprofen PO 800 mg PO once Route: PO; lg3 01:43 Follow up: Response: No adverse reaction; Marked relief of symptoms lg3 Medication: 01:43 VIS not applicable for this client. lg3 Outcome: 01:38 Discharge ordered by . cp 01:43 Discharged to home ambulatory, lg3 01:43 Condition: stable 01:43 Discharge instructions given to patient, Instructed on discharge instructions, follow up and referral plans. medication usage, Demonstrated understanding of instructions, follow-up care, medications, Prescriptions given X 1, 01:44 Patient left the ED. lg3 Signatures: Dispatcher [employer] EDMS Johny Diaz PA PA cp Gibson, Lacie, RN RN lg3
[2023-02-01 01:51] VITALS: BP 145/96; TEMP 98.7; O2SAT 100
--- NOTE | 2023-02-01 14:23 | RAD REPORT ---
EXAM DESCRIPTION: RAD - Knee Right 3 View - 02/01/2023 1:24 am CLINICAL HISTORY: PAIN COMPARISON: None TECHNIQUE: 3 views of the right knee. FINDINGS: Normal mineralization. No acute fracture or dislocation. Joint spaces are maintained. IMPRESSION: No acute bony finding. Electronically signed by: Raul Hernandez MD 02/01/2023 01:35 AM CONTENT CHECKER Due to temporary technical issues with the PACS/Fluency reporting system, reports are being signed by the in house radiologists without review as a courtesy to insure prompt reporting. The interpreting radiologist is fully responsible for the content of the report.
== END 2023-02-01 01:44 | disposition home or self-care (01) ==
LOC: ER 00:52
DX: M25.561 Pain in right knee (principal)
CPT/HCPCS: 99283

== ENCOUNTER → 2023-04-15 | Emergency (ER) | payer SELFPAY ==
[~2023-04-15] MED LIST: AZITHROMYCIN 250 MG TAB ONE
--- OUTSIDE RECORDS SUMMARY | 2023-04-15 10:41 | XMS REPORT | Continuity of Care Document ---
Author Name Unknown Address [address] [employer] Address [address] [place] [address] Care Team Providers Care Software Configuration Manager Name Role Phone Unavailable Unavailable Unavailable Encounters Start Date/Time End Date/Time Encounter Type Admission Type Attending Clinicians Care Facility Care Department Encounter ID Source 2022-10-18 14:26:13 2022-10-18 14:26:13 Outpatient [facility] [id number] Jose Rao 2022-09-30 15:50:43 2022-09-30 15:50:43 Outpatient [facility] [id number] Jose Rao
[2023-04-15 11:32] LABS: SARS-CoV-2 Antigen Rapid Res Negative (Negative)
--- NOTE | 2023-04-15 13:35 | ER ---
Nurse's Notes [facility] Name: Charli Ace Age: 37 yrs Sex: Male : 1985 Arrival Date: 04/15/2023 Time: 10:37 Bed 10 Private MD: Diagnosis: Acute upper respiratory infection, unspecified;Other malaise and fatigue Presentation: 04/15 10:52 Chief complaint: Patient states: Chills, felt feverish, body aches x 2 days. jl7 Coronavirus screen: Client presents with at least one sign or symptom that may indicate coronavirus-19. Ebola Screen: No symptoms or risks identified at this time. Initial Sepsis Screen: Does the patient meet any 2 criteria? No. Patient's initial sepsis screen is negative. Does the patient have a suspected source of infection? No. Patient's initial sepsis screen is negative. Risk Assessment: Do you want to hurt yourself or someone else? Patient reports no desire to harm self or others. Onset of symptoms was April 13, 2023. 10:52 Method Of Arrival: Ambulatory [facility] 10:52 Acuity: DIMITRIS 4 jl7 Triage Assessment: 10:54 General: Appears in no apparent distress. uncomfortable, Behavior is calm, cooperative, jl7 appropriate for age. Pain: Complains of pain in body aches Pain currently is 0 out of 10 on a pain scale. at worst was 6 out of 10 on a pain scale. Neuro: Level of Consciousness is awake, alert, obeys commands, Oriented to person, place, time, situation. Cardiovascular: Denies chest pain, Patient's skin is warm and dry. Respiratory: Airway is patent Respiratory effort is even, unlabored, Respiratory pattern is regular, symmetrical, Denies cough, shortness of breath. GI: No signs and/or symptoms were reported involving the gastrointestinal system. : No signs and/or symptoms were reported regarding the genitourinary system. Derm: Skin is pink, warm \T\ dry. Historical: - Allergies: 10:54 No Known Allergies; jl7 - Home Meds: 10:54 Metformin Oral [Active]; jl7 - PMHx: 10:54 diabetes mellitus; jl7 - Immunization history:: Adult Immunizations unknown. - Social history:: Smoking status: Patient reports the use of cigarette tobacco products. - Family history:: not pertinent. Screenin:10 [facility] ED Fall Risk Assessment (Adult) History of falling in the last 3 months, aa5 including since admission No falls in past 3 months (0 pts) Confusion or Disorientation No (0 pts) Intoxicated or Sedated No (0 pts) Impaired Gait No (0 pts) Mobility Assist Device Used No (0 pt) Altered Elimination No (0 pt) Score/Fall Risk Level 0 - 2 = Low Risk Oriented to surroundings, Maintained a safe environment, Educated pt \T\ family on fall prevention, incl call for assistance when getting out of bed. Abuse screen: Denies threats or abuse. Nutritional screening: No deficits noted. Tuberculosis screening: No symptoms or risk factors identified. Assessment: 12:10 General: Appears comfortable, Behavior is calm, cooperative. Pain: Complains of pain in aa5 whole body Pain currently is 5 out of 10 on a pain scale. Quality of pain is described as aching, Is continuous. Neuro: Level of Consciousness is awake, alert, obeys commands, Oriented to person, place, time, situation. Cardiovascular: Heart tones S1 S2 present Rhythm is regular. Respiratory: Airway is patent Respiratory effort is even, unlabored, Respiratory pattern is regular, symmetrical. GI: No signs and/or symptoms were reported involving the gastrointestinal system. : No signs and/or symptoms were reported regarding the genitourinary system. EENT: No signs and/or symptoms were reported regarding the EENT system. Derm: Skin is pink, warm \T\ dry. Musculoskeletal: Range of motion: intact in all extremities. 12:45 Reassessment: Awaiting disposition, pt aware. . aa5 14:00 Reassessment: Patient is alert, oriented x 3, equal unlabored respirations, skin aa5 warm/dry/pink. Vital Signs: 10:52 BP 138 / 91; Pulse 73; Resp 15; Temp 98.6(O); Pulse Ox 100% ; Weight 86.18 kg; Height 5 jl7 ft. 2 in. ; Pain 6/10; 10:52 Body Mass Index 34.75 (86.18 kg, 157.48 cm) jl7 10:52 Pain Scale: Adult jl7 ED Course: 10:39 Patient arrived in ED. mg5 10:42 Johny Valentine MD is Attending Physician. [facility] 10:54 Triage completed. jl7 10:54 Arm band placed on right wrist. jl7 12:31 Iman Mckeon, RN is Primary Nurse. aa5 14:01 EKG done, by ED staff, reviewed by Johny Valentine MD. aa5 14:05 No provider procedures requiring assistance completed. Patient did not have IV access aa5 during this emergency room visit. Administered Medications: 11:00 Not Given (Patient Refused): [id number] mg PO once aa5 12:30 Drug: AZITHromycin PO 500 mg PO once Route: PO; aa5 14:00 Follow up: Response: No adverse reaction aa5 Medication: 14:05 VIS not applicable for this client. aa5 Outcome: 13:34 Discharge ordered by . mallory 14:05 Discharged to home ambulatory, aa5 14:05 Condition: stable 14:05 Discharge instructions given to patient, Instructed on discharge instructions, follow up and referral plans. medication usage, Demonstrated understanding of instructions, follow-up care, medications, Prescriptions given X 2, 14:09 Patient left the ED. aa5 Signatures: Johny Valentine MD MD cha Calderon, Audri, RN RN aa5 Quynh Pat RN RN jl7 Shana Richmond 5
--- NOTE | 2023-04-15 13:35 | EDPHYS ---
Physician Documentation [facility] Name: Charli Ace Age: 37 yrs Sex: Male : 1985 Arrival Date: 04/15/2023 Time: 10:37 Bed 10 Private MD: DILSHAD Physician Johny Valentine HPI: 04/15 13:25 This 37 yrs old Male presents to ER via Ambulatory with complaints of Flu mallory Symptoms, Pain All Over. 13:25 The patient or guardian reports cough, flu symptoms, arthralgias, low-grade fever, mallory myalgias. Onset: The symptoms/episode began/occurred 3 day(s) ago. Modifying factors: The symptoms are alleviated by nothing. the symptoms are aggravated by nothing. URI , BODYACHES. Associated signs and symptoms: Pertinent positives: fever, sore throat. The patient reports fever, that was measured at 100 degrees Fahrenheit. Modifying factors: there are no obvious modifying factors. Severity of symptoms: At their worst the symptoms were mild moderate in the emergency department the symptoms are unchanged. The patient has experienced similar episodes in the past, a few times. Historical: - Allergies: 10:54 No Known Allergies; jl7 - Home Meds: 10:54 Metformin Oral [Active]; jl7 - PMHx: 10:54 diabetes mellitus; jl7 - Immunization history:: Adult Immunizations unknown. - Social history:: Smoking status: Patient reports the use of cigarette tobacco products. - Family history:: not pertinent. ROS: 13:27 Constitutional: Negative for fever, chills, and weight loss, Eyes: Negative for injury, mallory pain, redness, and discharge, ENT: Negative for injury, pain, and discharge, Neck: Negative for injury, pain, and swelling, Cardiovascular: Negative for chest pain, palpitations, and edema, Abdomen/GI: Negative for abdominal pain, nausea, vomiting, diarrhea, and constipation, Back: Negative for injury and pain, : Negative for injury, bleeding, discharge, and swelling, MS/Extremity: Negative for injury and deformity, Skin: Negative for injury, rash, and discoloration, Neuro: Negative for headache, weakness, numbness, tingling, and seizure, Psych: Negative for depression, anxiety, suicide ideation, homicidal ideation, and hallucinations, Allergy/Immunology: Negative for hives, rash, and allergies, Endocrine: Negative for neck swelling, polydipsia, polyuria, polyphagia, and marked weight changes, Hematologic/Lymphatic: Negative for swollen nodes, abnormal bleeding, and unusual bruising, 13:27 Respiratory: Positive for cough, "sounds productive", Exam: 13:27 Constitutional: This is a well developed, well nourished patient who is awake, alert, mallory and in no acute distress. Head/Face: Normocephalic, atraumatic. Eyes: Pupils equal round and reactive to light, extra-ocular motions intact. Lids and lashes normal. Conjunctiva and sclera are non-icteric and not injected. Cornea within normal limits. Periorbital areas with no swelling, redness, or edema. ENT: Nares patent. No nasal discharge, no septal abnormalities noted. Tympanic membranes are normal and external auditory canals are clear. Oropharynx with no redness, swelling, or masses, exudates, or evidence of obstruction, uvula midline. Mucous membranes moist. Neck: Trachea midline, no thyromegaly or masses palpated, and no cervical lymphadenopathy. Supple, full range of motion without nuchal rigidity, or vertebral point tenderness. No Meningismus. Chest/axilla: Normal chest wall appearance and motion. Nontender with no deformity. No lesions are appreciated. Cardiovascular: Regular rate and rhythm with a normal S1 and S2. No gallops, murmurs, or rubs. Normal PMI, no JVD. No pulse deficits. Respiratory: Lungs have equal breath sounds bilaterally, clear to auscultation and percussion. No rales, rhonchi or wheezes noted. No increased work of breathing, no retractions or nasal flaring. Abdomen/GI: Soft, non-tender, with normal bowel sounds. No distension or tympany. No guarding or rebound. No evidence of tenderness throughout. Back: No spinal tenderness. No costovertebral tenderness. Full range of motion. Male : Normal genitalia with no discharge or lesions. Skin: Warm, dry with normal turgor. Normal color with no rashes, no lesions, and no evidence of cellulitis. MS/ Extremity: Pulses equal, no cyanosis. Neurovascular intact. Full, normal range of motion. Neuro: Awake and alert, GCS 15, oriented to person, place, time, and situation. Cranial nerves II-XII grossly intact. Motor strength 5/5 in all extremities. Sensory grossly intact. Cerebellar exam normal. Normal gait. Psych: Awake, alert, with orientation to person, place and time. Behavior, mood, and affect are within normal limits. 14:09 ECG was reviewed by the Attending Physician. [facility] Vital Signs: 10:52 BP 138 / 91; Pulse 73; Resp 15; Temp 98.6(O); Pulse Ox 100% ; Weight 86.18 kg; Height 5 jl7 ft. 2 in. ; Pain 6/10; 10:52 Body Mass Index 34.75 (86.18 kg, 157.48 cm) 7 10:52 Pain Scale: Adult jl7 MDM: 10:42 Patient medically screened. [facility] 13:29 Differential diagnosis: flu, URI, viral Infection, bacterial infection, URI, mallory bronchitis, pneumonia. Antibiotic administration: The patient is discharged and will get outpatient antibiotics, Zithromax. Differential Diagnosis sepsis, flu. Data reviewed: vital signs, nurses notes, lab test result(s), Flu: negative. Consideration of Admission/Observation Escalation of care including admission/observation considered. I considered the following discharge prescriptions or medication management in the emergency department Medications were administered in the Emergency Department. See MAR. Test considered but Not performed: Labs: NO CBC, NO COMP MET. Care significantly affected by the following chronic conditions: Diabetes. 04/15 10:43 Order name: SARS RAPID; Complete Time: 13:19 [facility] 04/15 10:43 Order name: Flu; Complete Time: 13:20 [facility] 04/15 13:35 Order name: EKG; Complete Time: 13:36 [facility] 04/15 13:35 Order name: EKG - Nurse/Tech; Complete Time: 14:09 [facility] EC:09 Rate is 68 beats/min. Rhythm is regular. QRS [place] is Normal. [place] interval is normal. QRS mallory interval is normal. QT interval is normal. No Q waves. T waves are Normal. No ST changes noted. Clinical impression: Normal ECG and No evidence of ischemia. Interpreted by me. Reviewed by me. Administered Medications: 11:00 Not Given (Patient Refused): mg PO once aa5 12:30 Drug: AZITHromycin PO 500 mg PO once Route: PO; aa5 14:00 Follow up: Response: No adverse reaction aa5 Disposition Summary: 04/15/23 13:34 Discharge Ordered Notes: Location: Home mallory Problem: new [facility] Symptoms: have improved mallory Condition: Stable mallory Diagnosis - Acute upper respiratory infection, unspecified mallory - Other malaise and fatigue mallory Followup: mallory - With: Private Physician - When: 2 - 3 days - Reason: Recheck today's complaints, Continuance of care, Re-evaluation by your physician Discharge Instructions: - Upper Respiratory Infection, Adult mallory - Cool Mist Vaporizer mallory - Upper Respiratory Infection, Adult, [id number] mallory - Cough, Adult mallory - Discharge Summary Sheet aa5 Forms: - Medication Reconciliation Form [facility] - Thank You Letter [facility] - Antibiotic Education mallory - Prescription Opioid Use mallory - Patient Portal Instructions mallory - Leadership Thank You Letter mallory - Work release form aa5 Prescriptions: - Tessalon Perles 100 mg Oral capsule - take 2 capsule ORAL route every 8 hours As needed; 30 capsule; Refills: 0, mallory Product Selection Permitted - Zithromax Z-Ramiro 250 mg Oral Tablet - take 1 tablet ORAL route as directed for 5 days Day 1 - take two (2) tablets [facility] one time. Day 2, 3, 4 , 5 take one (1) tablet once daily.; 6 tablet; Refills: 0, Product Selection Permitted Signatures: Dispatcher [employer] Johny Martinez MD MD cha Calderon, Audri, RN RN aa5 Quynh Pat RN RN jl7 Corrections: (The following items were deleted from the chart) 11:07 10:44 Group A Streptococcus Rapid [id number] ordered. ED EDMS
[2023-04-15 14:17] VITALS: BP 138/91; TEMP 98.6; O2SAT 100
--- NOTE | 2023-04-15 14:58 | EKG ---
Test Date: 2023-04-15 Test Time: 14:01:27 Carbide Operator: [place] MEASUREMENT RESULTS: Intervals: Rate: 68 MT: 166 QRSD: 90 QT: 416 QTc: 442 [place]: P: 67 MT: 166 QRS: 70 T: 44 INTERPRETIVE STATEMENTS: Normal sinus rhythm Normal ECG No previous ECG available for comparison Electronically Signed On 04-15-23 14:57:50 QUALITY REVIEW TRAINER by Xavi Perez
== END ==
LOC: ER 10:37
DX: J06.9 Acute upper respiratory infection, unspecified (principal); Z11.52 Encounter for screening for COVID-19
CPT/HCPCS: 36415; 87804; 87811; 93005; 99283

== ENCOUNTER 2023-06-01 23:04 | Emergency (ER) | payer SELFPAY ==
--- OUTSIDE RECORDS SUMMARY | 2023-06-01 23:07 | XMS REPORT | Continuity of Care Document ---
Author Name Unknown Address [address] [facility] [address] th[address] Address [address] [facility] [address] [place] [address] Care Team Providers Care Nursing Home Physician Name Role Phone Unavailable Unavailable Unavailable Encounters Start Date/Time End Date/Time Encounter Type Admission Type Attending Clinicians Care Facility Care Department Encounter ID Source 2022-10-18 14:26:13 2022-10-18 14:26:13 Outpatient [facility] [id number] Jose Rao 2022-09-30 15:50:43 2022-09-30 15:50:43 Outpatient [facility] [id number] Jose Rao
[2023-06-01] MEDS ORDERED: IBUPROFEN 200 MG TAB PO ONE (23:31)
--- NOTE | 2023-06-01 23:31 | EDPHYS ---
Physician Documentation [facility] Name: Charli Ace Age: 37 yrs Sex: Male : 1985 Arrival Date: 06/01/2023 Time: 23:04 Bed DX3 Private MD: ED Physician Tanmay Renteria HPI: 05/31 23:15 This 37 yrs old Male presents to ER via Unassigned with complaints of Lump on sp4 ankle. 23:26 7-year-old male presents with a lump to the left inner ankle associated with a redness sp4 around likely secondary to insect or spider bite. No sign of drainable abscess on arrival. . Historical: - Allergies: 23:24 No Known Allergies; cm10 - Home Meds: 23:24 Metformin Oral [Active]; cm10 - PMHx: 23:24 diabetes mellitus; cm10 - PSHx: 23:24 None; cm10 - Immunization history:: Adult Immunizations up to date. - Infectious Disease History:: Denies. - Social history:: Smoking status: Patient reports the use of cigarette tobacco products, denies chronic smoking, but will smoke occasionally. - Family history:: not pertinent. ROS: 23:26 Constitutional: Negative for fever, chills, and weight loss, positive for left inner sp4 ankle redness and positive for left inner ankle skin knot 23:26 All other systems are negative, Exam: 23:26 Constitutional: This is a well developed, well nourished patient who is awake, alert, sp4 and in no acute distress. Head/Face: Normocephalic, atraumatic. Eyes: Pupils equal round and reactive to light, extra-ocular motions intact. Lids and lashes normal. Conjunctiva and sclera are not injected. Cornea within normal limits. Periorbital areas with no swelling, redness, or edema. ENT: Nares patent. No nasal discharge, no septal abnormalities noted. Tympanic membranes are normal and external auditory canals are clear. Oropharynx with no redness, swelling, or masses, exudates, or evidence of obstruction, uvula midline. Mucous membranes moist. Neck: Trachea midline, no thyromegaly or masses palpated, and no cervical lymphadenopathy. Supple, full range of motion without nuchal rigidity, or vertebral point tenderness. Chest/axilla: Normal chest wall appearance and motion. Nontender with no deformity. No lesions are appreciated. Cardiovascular: Regular rate and rhythm with a normal S1 and S2. No gallops, murmurs, or rubs. Normal PMI, no JVD. No pulse deficits. Respiratory: Lungs have equal breath sounds bilaterally, clear to auscultation and percussion. No rales, rhonchi or wheezes noted. No increased work of breathing, no retractions or nasal flaring. Abdomen/GI: Soft, with normal bowel sounds. No distension or tympany. No guarding or rebound. No evidence of tenderness throughout. Back: No spinal tenderness. No costovertebral tenderness. Skin: Warm, dry with normal turgor. Normal color with no rashes, no lesions, and no evidence of cellulitis. MS/ Extremity: Pulses equal, no cyanosis. Neurovascular intact. Full, normal range of motion. Mild left inner ankle redness , with skin discoloration and mild skin hardening. No puncture wound, no drainable abscess Neuro: Awake and alert, GCS 15, oriented to person, place, time, and situation. Cranial nerves II-XII grossly intact. Motor strength 5/5 in all extremities. Sensory grossly intact. Psych: Awake, alert, with orientation to person, place and time. Behavior, mood, and affect are within normal limits Vital Signs: 23:20 BP 159 / 108; Pulse 77; Resp 18; Temp 97.9(O); Pulse Ox 100% on R/A; Weight 85.73 kg; cm10 Height 5 ft. 2 in. ; Pain 5/10; 23:20 Body Mass Index 34.57 (85.73 kg, 157.48 cm) cm10 23:20 Pain Scale: Adult cm10 Karie Coma Score: 23:26 Eye Response: spontaneous(4). Motor Response: obeys commands(6). Verbal Response: sp4 oriented(5). Total: 15. MDM: 23:14 Patient medically screened. kb 23:26 Differential Diagnosis altered mental status, sepsis, flu, cellulitis . Data reviewed: sp4 vital signs, nurses notes. ED course: General warrants prescription for Bactrim. Blood sugar check is 100. . 05/31 23:40 Order name: Glucose, Ancillary Testing EDMS 05/31 23:26 Order name: Accucheck Blood Glucose; Complete Time: 23:29 sp4 Administered Medications: 23:34 Drug: Trimethoprim-Sulfamethoxazole PO (160 mg-800 mg (DS) 1 tablet PO once Route: PO; cm10 23:40 Follow up: Response: Medication administered at discharge. cm10 23:34 Drug: Ibuprofen PO 600 mg PO once Route: PO; cm10 23:40 Follow up: Response: Medication administered at discharge. cm10 23:34 Drug: diphenhydrAMINE PO 25 mg PO once Route: PO; cm10 23:40 Follow up: Response: Medication administered at discharge. cm10 Disposition Summary: 06/01/23 23:31 Discharge Ordered Notes: Location: Home sp4 Problem: new sp4 Symptoms: are unchanged sp4 Condition: Stable sp4 Diagnosis - Cellulitis of left lower limb sp4 - Acute cellulitis left inner ankle sp4 Followup: sp4 - With: Private Physician - When: 7 - 10 days - Reason: Recheck today's complaints Discharge Instructions: - Discharge Summary Sheet sp4 - Cellulitis, Adult, [id number] sp4 Forms: - Patient Portal Instructions sp4 Prescriptions: - Bactrim DS 800-160 mg Oral Tablet - take 1 tablet ORAL route every 12 hours for 10 days; 20 tablet; Refills: 0, sp4 Product Selection Permitted Signatures: Demetria Desouza, LB FIGUEROA-Tanmay Walls MD MD sp4 Zena Villa RN RN cm10
--- NOTE | 2023-06-01 23:31 | ER ---
Nurse's Notes [facility] Name: Charli Ace Age: 37 yrs Sex: Male : 1985 Arrival Date: 06/01/2023 Time: 23:04 Bed DX3 Private MD: Diagnosis: Cellulitis of left lower limb;Acute cellulitis left inner ankle Presentation: 05/31 23:20 Chief complaint: Patient states: Lump to the inside of left ankle onset Tuesday cm10 morning. Pt states that he is not sure if something bit his ankle. Coronavirus screen: Client denies travel out of the [place] in the last 14 days. At this time, the client does not indicate any symptoms associated with coronavirus-19. Ebola Screen: Patient denies travel to an Ebola-affected area in the 21 days before illness onset. No symptoms or risks identified at this time. Initial Sepsis Screen: Does the patient meet any 2 criteria? No. Patient's initial sepsis screen is negative. Does the patient have a suspected source of infection? No. Patient's initial sepsis screen is negative. Risk Assessment: Do you want to hurt yourself or someone else? Patient reports no desire to harm self or others. Onset of symptoms was May 31, 2023. 23:20 Method Of Arrival: Ambulatory cm10 23:20 Acuity: DIMITRIS 4 cm10 Triage Assessment: 23:25 General: Appears in no apparent distress. comfortable, Behavior is calm, cooperative. cm10 Pain: Complains of pain in medial aspect of left calf and left medial ankle. Neuro: No deficits noted. Level of Consciousness is awake, alert, obeys commands, Oriented to person, place, time, situation. 23:41 Respiratory: No deficits noted. Airway is patent Respiratory effort is even, unlabored, cm10 Respiratory pattern is regular, symmetrical. Derm: Wound noted left medial ankle. Historical: - Allergies: 23:24 No Known Allergies; cm10 - Home Meds: 23:24 Metformin Oral [Active]; cm10 - PMHx: 23:24 diabetes mellitus; cm10 - PSHx: 23:24 None; cm10 - Immunization history:: Adult Immunizations up to date. - Infectious Disease History:: Denies. - Social history:: Smoking status: Patient reports the use of cigarette tobacco products, denies chronic smoking, but will smoke occasionally. - Family history:: not pertinent. Screenin:37 [facility] ED Fall Risk Assessment (Adult) History of falling in the last 3 months, cm10 including since admission No falls in past 3 months (0 pts) Confusion or Disorientation No (0 pts) Intoxicated or Sedated No (0 pts) Impaired Gait No (0 pts) Mobility Assist Device Used No (0 pt) Altered Elimination No (0 pt) Score/Fall Risk Level 0 - 2 = Low Risk Oriented to surroundings, Maintained a safe environment, Hourly rounding (assess needs \T\ fall precautionary measures) done. Abuse screen: Denies threats or abuse. Denies injuries from another. Nutritional screening: No deficits noted. Tuberculosis screening: No symptoms or risk factors identified. Vital Signs: 23:20 BP 159 / 108; Pulse 77; Resp 18; Temp 97.9(O); Pulse Ox 100% on R/A; Weight 85.73 kg; cm10 Height 5 ft. 2 in. ; Pain 5/10; 23:20 Body Mass Index 34.57 (85.73 kg, 157.48 cm) cm10 23:20 Pain Scale: Adult cm10 Karie Coma Score: 23:26 Eye Response: spontaneous(4). Motor Response: obeys commands(6). Verbal Response: sp4 oriented(5). Total: 15. ED Course: 23:08 Patient arrived in ED. im 23:14 [facility]C [facility] kb 23:14 Tanmay Renteria MD is Attending Physician. kb 23:24 Triage completed. cm10 23:25 Arm band placed on Patient placed in waiting room. cm10 23:37 Patient has correct armband on for positive identification. Provided Education on: cm10 Follow-up instructions. 23:37 No provider procedures requiring assistance completed. Patient did not have IV access cm10 during this emergency room visit. Administered Medications: 23:34 Drug: Trimethoprim-Sulfamethoxazole PO (160 mg-800 mg (DS) 1 tablet PO once Route: PO; cm10 23:40 Follow up: Response: Medication administered at discharge. cm10 23:34 Drug: Ibuprofen PO 600 mg PO once Route: PO; cm10 23:40 Follow up: Response: Medication administered at discharge. cm10 23:34 Drug: diphenhydrAMINE PO 25 mg PO once Route: PO; cm10 23:40 Follow up: Response: Medication administered at discharge. cm10 Medication: 23:37 VIS not applicable for this client. cm10 Outcome: 23:31 Discharge ordered by . [email or web address] 23:41 Discharged to home ambulatory, with significant other, cm10 23:41 Condition: good 23:41 Discharge instructions given to patient, Instructed on discharge instructions, follow up and referral plans. medication usage, Demonstrated understanding of instructions, follow-up care, medications, Prescriptions given X 1, 23:41 Patient left the ED. cm10 Signatures: Demetria Desouza, PUBLIC HEALTH CLINICAL NURSE SPECIALIST-C PUBLIC HEALTH CLINICAL NURSE SPECIALIST-Tanmay Walls MD MD sp4 Zabrina Madrid Clarissa, RN RN cm10 Corrections: (The following items were deleted from the chart) 23:25 23:20 BP 187 / 107; Pulse 77bpm; Resp 18bpm; Pulse Ox 100% RA; Temp 97.9F Oral; 85.73 cm10 kg; Height 5 ft. 2 in.; BMI: 34.5; Pain 5/10, Adult; cm10 23:41 23:25 Pain: Complains of pain in medial aspect of left calf and left medial ankle cm10 cm10
[2023-06-01] MEDS ORDERED: DIPHENHYDRAMINE 25 MG TAB/CAP ONE (23:32)
[2023-06-01] MEDS ORDERED: SMZ./TMP. 800/160 MG TABLET ONE (23:32)
[2023-06-01] MEDS ORDERED: IBUPROFEN 400 MG TAB ONE (23:32)
[2023-06-02 00:15] VITALS: BP 159/108; TEMP 97.9; O2SAT 100
== END 2023-06-01 23:41 | disposition home or self-care (01) ==
LOC: ER 23:04
DX: L03.116 Cellulitis of left lower limb (principal)
CPT/HCPCS: 82947

== ENCOUNTER 2023-07-18 23:51 | Inpatient (IN) | payer SELFPAY ==
--- OUTSIDE RECORDS SUMMARY | 2023-07-18 23:54 | XMS REPORT | Continuity of Care Document ---
Author Name Unknown Address [address] [place] [address] [employer] Address [address] [place] [address] 1 [address] [place] [address] Care Team Providers Care Arm Maker Name Role Phone Unavailable Unavailable Unavailable Encounters Start Date/Time End Date/Time Encounter Type Admission Type Attending Clinicians Care Facility Care Department Encounter ID Source 2022-10-18 14:26:13 2022-10-18 14:26:13 Outpatient [facility] [id number] Jose Rao 2022-09-30 15:50:43 2022-09-30 15:50:43 Outpatient [facility] [id number] Jose Rao
[2023-07-19 00:57] LABS: Absolute Basophils 0.1 K/uL (0-0.5); Absolute Eosinophils 0.3 K/uL (0-0.5); Absolute Lymphocytes (CBC) 2.1 K/uL (0.7-4.9); Absolute Monocytes 1.1 K/uL (0.1-1.3); Absolute Neutrophil 9.5 K/uL (1.8-8.0); Basophils % 0.8 % (0-1.3); Hematocrit 46.9 % (39.6-49.0); Hemoglobin 15.8 g/dL (13.6-17.9); Lymphocytes % 16.3 % (15.3-44.8); MCH 31.1 pg (27.0-35.0); MCHC 33.7 g/dL (32.0-36.0); MCV 92.3 fL (80-100); MPV 8.5 fL (7.6-11.3); Monocytes % 8.6 % (3.3-12.3); Neutrophils % 72.3 % (41.7-73.7); Nucleated Red Blood Cells % 0.1 % (0-0); Platelets 294 thou/uL (152-406); RBC Red Blood Cell Count 5.08 M/uL (4.33-5.43); Red Cell Distribution Width 13.3 % (12.1-15.2)
[2023-07-19 01:03] LABS: Specific Gravity > 1.030 (1.005-1.030); Sqamous Epithelial <5 /HPF (None Seen); Urine Bacteria None Seen /HPF (<20); Urine Bilirubin NEGATIVE (Negative); Urine Blood Trace (Negative); Urine Clarity Clear (Clear); Urine Color Yellow (Yellow); Urine Culture Reflex Order NOT NEEDED; Urine Glucose NEGATIVE (Negative); Urine Ketones TRACE (Negative); Urine Microscopic Reflex YN ORDER UMIC; Urine Mucus 1+ /HPF (None Seen); Urine Nitrite NEGATIVE (Negative); Urine Protein 1+ (Negative); Urine Urobilinogen 1+ (Normal); Urine WBC <5 /HPF (<5)
[2023-07-19] MEDS ORDERED: KETOROLAC 30 MG/ML INJ ONE (01:14)
[2023-07-19] MEDS ORDERED: ONDANSETRON 4 MG/2 ML VIAL ONE ×2 (01:14→03:41)
[2023-07-19] MEDS ORDERED: NA CHLORIDE 0.9% 1,000 ML ONE ×2 (01:15→03:42)
[2023-07-19 03:34] LABS: Albumin 3.6 g/dL (3.4-5.0); Albumin/Globulin Ratio 0.8 (1.1-1.8); Anion Gap 8.4 mEq/L (5.0-15.0); Globulin 4.4 g/dL (2.3-3.5); Potassium 3.4 mEq/L (3.5-5.1)
[2023-07-19] MEDS ORDERED: CEFTRIAXONE 1000 MG/VIAL ONE (03:41)
[2023-07-19] MEDS ORDERED: MORPHINE 4 MG/ML SYR ONE (03:42)
[2023-07-19] MEDS ORDERED: METRONIDAZOLE 500mg IVPB 500 MG/100 ML BAG IV ONE ×2 (03:42→10:00)
--- NOTE | 2023-07-19 04:37 | ER ---
Nurse's Notes [facility] Name: Charli Ace Age: 38 yrs Sex: Male : 1985 Arrival Date: 07/18/2023 Time: 23:51 Bed 18 Private MD: Diagnosis: Sigmoid diverticulitis with diverticular abscess without perforation Presentation: 07/18 00:23 Chief complaint: Chief complaint: Patient states: suprapubic pain, urinary urgency, vc1 "hot urine", not able to urinate much at a time. 00:25 Coronavirus screen: Vaccine status: Patient reports being unvaccinated. Client denies vc1 travel out of the [place] in the last 14 days. At this time, the client does not indicate any symptoms associated with coronavirus-19. Ebola Screen: Patient negative for fever greater than or equal to 101.5 degrees Fahrenheit, and additional compatible Ebola Virus Disease symptoms Patient denies exposure to infectious person. Patient denies travel to an Ebola-affected area in the 21 days before illness onset. No symptoms or risks identified at this time. Initial Sepsis Screen: Does the patient meet any 2 criteria? No. Patient's initial sepsis screen is negative. Does the patient have a suspected source of infection? No. Patient's initial sepsis screen is negative. Risk Assessment: Do you want to hurt yourself or someone else? Patient reports no desire to harm self or others. Onset of symptoms was July 19, 2023. Care prior to arrival: None. Activity prior to arrival: None. Mechanism of Injury: No Mechanism of Injury. Transition of care: patient was not received from another setting of care. 00:25 Method Of Arrival: Ambulatory vc1 00:25 Acuity: DIMITRIS 4 vc1 Triage Assessment: 00:28 General: Appears in no apparent distress. uncomfortable, Behavior is calm, cooperative, vc1 appropriate for age. Pain: Complains of pain in suprapubic area Pain does not radiate. Pain currently is 0 out of 10 on a pain scale. Quality of pain is described as pressure, Pain began suddenly, Also complains of sleeplessness. Neuro: No deficits noted. Cardiovascular: No deficits noted. Respiratory: Airway is patent Respiratory effort is even, unlabored, Respiratory pattern is regular, symmetrical. GI: Abdomen is round non-distended, Patient currently denies pain. : Reports pain in suprapubic area urinary frequency. Derm: Skin is intact, is healthy with good turgor, Skin is dry, Skin is normal, Skin temperature is warm. Historical: - Allergies: 00:28 No Known Allergies; vc1 - Home Meds: 00:28 Metformin Oral [Active]; vc1 - PMHx: 00:28 diabetes mellitus; vc1 - PSHx: 00:28 None; vc1 - Immunization history:: Client reports having NOT received the Covid vaccine. Flu vaccine status is unknown. - Infectious Disease History:: Denies. - Social history:: Smoking status: Patient reports the use of cigarette tobacco products, denies chronic smoking, but will smoke occasionally. Screenin:10 [facility] ED Fall Risk Assessment (Adult) History of falling in the last 3 months, 1 including since admission No falls in past 3 months (0 pts) Confusion or Disorientation No (0 pts) Intoxicated or Sedated No (0 pts) Impaired Gait No (0 pts) Mobility Assist Device Used No (0 pt) Altered Elimination No (0 pt) Score/Fall Risk Level 0 - 2 = Low Risk Oriented to surroundings, Maintained a safe environment, Educated pt \\T\\ family on fall prevention, incl call for assistance when getting out of bed, Hourly rounding (assess needs \\T\\ fall precautionary measures) done. Abuse screen: Denies threats or abuse. Denies injuries from another. Nutritional screening: No deficits noted. Tuberculosis screening: No symptoms or risk factors identified. Assessment: 00:10 General: Appears comfortable, Behavior is calm, cooperative. Pain: Complains of pain in ha1 suprapubic area Pain does not radiate. Pain currently is 7 out of 10 on a pain scale. Quality of pain is described as aching, Pain began gradually, 2-3 days ago. Is intermittent. Neuro: Level of Consciousness is awake, alert, obeys commands, Oriented to person, place, time, situation. Cardiovascular: Capillary refill < 3 seconds Patient's skin is warm and dry. Respiratory: Airway is patent Respiratory effort is even, unlabored, Respiratory pattern is regular, symmetrical. GI: Abdomen is round non-distended, Bowel sounds present X 4 quads. Abd is soft and non tender X 4 quads. Reports lower abdominal pain, constipation. : Reports burning with urination. Derm: Skin is pink, warm \\T\\ dry. Musculoskeletal: Circulation, motion, and sensation intact. Range of motion: intact in all extremities. 01:00 Reassessment: Patient and/or family updated on plan of care and expected duration. Pain ha1 level reassessed. Patient is alert, oriented x 3, equal unlabored respirations, skin warm/dry/pink. 02:00 Reassessment: Patient and/or family updated on plan of care and expected duration. Pain ha1 level reassessed. Patient is alert, oriented x 3, equal unlabored respirations, skin warm/dry/pink. Patient states feeling better. Patient states symptoms have improved. 03:00 Reassessment: Patient and/or family updated on plan of care and expected duration. Pain ha1 level reassessed. Patient is alert, oriented x 3, equal unlabored respirations, skin warm/dry/pink. 04:00 Reassessment: Patient and/or family updated on plan of care and expected duration. Pain ha1 level reassessed. Patient is alert, oriented x 3, equal unlabored respirations, skin warm/dry/pink. Vital Signs: 00:25 BP 133 / 92; Pulse 87; Resp 16; Temp 98.1; Pulse Ox 99% ; Weight 85.73 kg; Height 5 ft. vc1 2 in. ; Pain 0/10; 01:00 BP 127 / 75; Pulse 86; Resp 17 S; Pulse Ox 97% on R/A; ha1 02:00 BP 140 / 86; Pulse 92; Resp 17 S; Pulse Ox 97% on R/A; ha1 02:30 BP 122 / 79; Pulse 84; Resp 17 S; Pulse Ox 97% on R/A; ha1 03:30 BP 134 / 83; Pulse 80; Resp 17 S; Pulse Ox 96% on R/A; ha1 04:15 BP 102 / 79; Pulse 75; Resp 17 S; Pulse Ox 96% on R/A; ha1 05:25 BP 108 / 71; Pulse 74; Resp 18 S; Pulse Ox 99% on R/A; ha1 00:25 Body Mass Index 34.57 (85.73 kg, 157.48 cm) vc1 00:25 Pain Scale: Adult vc1 ED Course: 07/17 23:53 Patient arrived in ED. mr 23:54 Johny Diaz PA is PHCP. cp 23:54 Tanmay Renteria MD is Attending Physician. cp 07/18 00:08 Patient has correct armband on for positive identification. Placed in gown. Bed in low ha1 position. Call light in reach. Side rails up X 1. Adult w/ patient. 00:28 Triage completed. vc1 00:30 Client placed on continuous cardiac and pulse oximetry monitoring. NIBP monitoring ha1 applied. Door closed. Noise minimized. Warm blanket given. 00:30 Inserted saline lock: 20 gauge in right antecubital area, using aseptic technique. ha1 Blood collected. 00:31 Arm band placed on right wrist. vc1 00:55 Kristan Stroud RN is Primary Nurse. ha1 00:55 CBC with Diff Sent. ha1 00:55 CMP Sent. ha1 00:55 Lipase Sent. ha1 00:55 Urinalysis w/ reflexes Sent. ha1 03:28 Belkis Abraham MD is Hospitalizing Provider. sp4 04:37 CT Abd/Pelvis - IV Contrast Only In Process Unspecified. EDMS 06:07 Provided Education on: diverticulitis . ha1 06:07 No provider procedures requiring assistance completed. Patient admitted, IV remains in ha1 place. Administered Medications: 01:20 Drug: NS 0.9% IV 1000 ml IV at 1 bolus Per protocol; 1000 mL bolus Route: IV; Rate: 1 ha1 bolus; Site: right antecubital; 03:30 Follow up: Response: No adverse reaction; IV Status: Completed infusion; IV Intake: ha1 1000ml 01:20 Drug: Ondansetron IVP 4 mg IVP once; over 2 minutes Route: IVP; Site: right antecubital;ha1 01:50 Follow up: Response: No adverse reaction; Pain is decreased ha1 01:22 Drug: TORadol - Ketorolac IVP 15 mg IVP once Route: IVP; Site: right antecubital; ha1 01:50 Follow up: Response: No adverse reaction; Marked relief of symptoms ha1 03:45 Drug: NS 0.9% IV 1000 ml IV at 125 ml/hr continuous Route: IV; Rate: 125 ml/hr; Site: ha right antecubital; 06:02 Follow up: Response: No adverse reaction; IV Status: Infusion continued; IV Intake: ha1 400ml 03:45 Drug: Ondansetron IVP 4 mg IVP once; over 2 minutes Route: IVP; Site: right antecubital;ha1 04:00 Follow up: Response: No adverse reaction; Marked relief of symptoms ha1 03:47 Drug: Rocephin - Rocephin (cefTRIAXone) IVPB 1 grams IVPB once over 30 mins; (mix in 50 ha1 mL NS) Route: IVPB; Infused Over: 30 mins; Site: right antecubital; 06:05 Follow up: Response: No adverse reaction; IV Status: Completed infusion; IV Intake: [id number] 04:00 Drug: metroNIDAZOLE IVPB 500 mg 100 ml IVPB at 200 ml/hr once over 30 mins Volume: 100 ha1 ml; Route: IVPB; Rate: 200 ml/hr; Infused Over: 30 mins; Site: right antecubital; 05:00 Follow up: Response: No adverse reaction; IV Status: Completed infusion; IV Intake: ha1 100ml 04:58 Drug: morphine IVP or IV 4 mg IVP once over 4 mins Route: IVP; Infused Over: 4 mins; ha1 Site: right antecubital; 05:20 Follow up: Response: No adverse reaction; Pain is decreased; RASS: Alert and Calm (0) ha1 Medication: 02:55 VIS not applicable for this client. ha1 Intake: 03:30 IV: 1000ml; Total: 1000ml. ha1 05:00 IV: 100ml; Total: 1100ml. ha1 06:02 IV: 400ml; Total: 1500ml. ha1 06:05 IV: 50ml; Total: 1550ml. ha1 Outcome: 03:30 Decision to Hospitalize by Provider. sp4 05:30 Admitted to ER Hold. Please see [facility] for further documentation. ha1 05:30 Condition: stable 05:30 Instructed on the need for admit, 08:19 Patient left the ED. db Signatures: Dispatcher [employer] EDDE Dorothy Chi, Franky Reg mr Johny Diaz PA PA cp Calcote, Vanessa, RN RN vc1 Kristan Stroud RN RN ha1 Farhana Haney RN RN Tanmay Olson MD MD sp4 Corrections: (The following items were deleted from the chart) 00:28 00:23 Chief complaint: vc1 vc1 06:05 04:00 Response: No adverse reaction ha1 ha1
--- NOTE | 2023-07-19 04:37 | EDPHYS ---
Physician Documentation [facility] Name: Charli Ace Age: 38 yrs Sex: Male : 1985 Arrival Date: 07/18/2023 Time: 23:51 Bed 18 Private MD: ED Physician Tanmay Renteria HPI: 07/18 00:25 This 38 yrs old Male presents to ER via Ambulatory with complaints of cp Abdominal Pain. 00:25 The patient presents with abdominal pain suprapubic area. cp 00:25 Onset: The symptoms/episode began/occurred gradually, and became worse today. cp 00:25 The symptoms do not radiate. Associated signs and symptoms: Pertinent positives: cp dysuria, Pertinent negatives: constipation, diarrhea, fever, shortness of breath, testicular pain, vomiting. The symptoms are described as achy. Severity of pain: in the emergency department the pain is unchanged despite home interventions. The patient has not experienced similar symptoms in the past. 03:18 Care assumed from the PA . sp4 Historical: - Allergies: 00:28 No Known Allergies; vc1 - Home Meds: 00:28 Metformin Oral [Active]; vc1 - PMHx: 00:28 diabetes mellitus; vc1 - PSHx: 00:28 None; vc1 - Immunization history:: Client reports having NOT received the Covid vaccine. Flu vaccine status is unknown. - Infectious Disease History:: Denies. - Social history:: Smoking status: Patient reports the use of cigarette tobacco products, denies chronic smoking, but will smoke occasionally. ROS: 00:30 Constitutional: Negative for body aches, chills, fever, poor PO intake, cp 00:30 Abdomen/GI: Positive for abdominal pain, of the suprapubic area, Negative for vomiting, cp diarrhea, constipation, 00:30 : Negative for urinary symptoms, flank pain, testicular pain 00:30 Cardiovascular: Negative for chest pain, palpitations, cp 00:30 Respiratory: Negative for cough, shortness of breath, wheezing, 00:30 ENT: Negative for drainage from ear(s), ear pain, sore throat, difficulty swallowing, cp difficulty handling secretions, 00:30 Neuro: Negative for altered mental status, dizziness, headache, syncope, weakness, 00:30 All other systems are negative, Exam: 00:33 Constitutional: The patient appears in no acute distress, alert, awake, non-toxic, well cp developed, well nourished, 00:33 Head/Face: Normocephalic, atraumatic. cp 00:33 Eyes: Periorbital structures: appear normal, Conjunctiva: normal, no exudate, no injection, Sclera: no appreciated abnormality, Lids and lashes: appear normal, bilaterally, 00:33 ENT: External ear(s): are unremarkable, Nose: is normal, Mouth: Lips: moist, Oral mucosa: pink and intact, moist, Posterior pharynx: Airway: no evidence of obstruction, patent, 00:33 Chest/axilla: Inspection: normal, 00:33 Cardiovascular: Rate: normal, Rhythm: regular, 00:33 Respiratory: the patient does not display signs of respiratory distress, Respirations: normal, no use of accessory muscles, no retractions, labored breathing, is not present, Breath sounds: are clear throughout, no decreased breath sounds, no stridor, no wheezing, 00:33 Abdomen/GI: Inspection: abdomen appears normal, Bowel sounds: active, all quadrants, Palpation: soft, in all quadrants, mild abdominal tenderness, in the suprapubic area, rebound tenderness, is not appreciated, involuntary guarding, is not appreciated, 00:33 Back: pain, is absent, ROM is normal, Vital Signs: 00:25 BP 133 / 92; Pulse 87; Resp 16; Temp 98.1; Pulse Ox 99% ; Weight 85.73 kg; Height 5 ft. vc1 2 in. ; Pain 0/10; 01:00 BP 127 / 75; Pulse 86; Resp 17 S; Pulse Ox 97% on R/A; ha1 02:00 BP 140 / 86; Pulse 92; Resp 17 S; Pulse Ox 97% on R/A; ha1 02:30 BP 122 / 79; Pulse 84; Resp 17 S; Pulse Ox 97% on R/A; ha1 03:30 BP 134 / 83; Pulse 80; Resp 17 S; Pulse Ox 96% on R/A; ha1 04:15 BP 102 / 79; Pulse 75; Resp 17 S; Pulse Ox 96% on R/A; ha1 05:25 BP 108 / 71; Pulse 74; Resp 18 S; Pulse Ox 99% on R/A; ha1 00:25 Body Mass Index 34.57 (85.73 kg, 157.48 cm) vc1 00:25 Pain Scale: Adult vc1 MDM: 00:13 Patient medically screened. cp 01:00 Differential diagnosis: appendicitis, bowel obstruction, cholecystitis, Cholelithiasis, cp diverticulitis, non-specific abd pain, pancreatitis, Peptic Ulcer Disease, Pyelonephritis, Testicular Torsion, Ureterolithiasis, urinary tract infection. 02:00 Transition of care: After a detail discussion of the patient's case, care is cp transferred to Tanmay Renteria MD. 03:19 ED course: TECHNIQUE: CTABDOMEN PELVIS WITH IV CONTRAST on 07/19/2023 12:40 AM CDT This sp4 exam was performed according to our departmental dose-optimization program, which includes automated exposure control, adjustment of the mA and/or kV according to patient size and/or use of iterative reconstruction technique. FINDINGS: Lower lungs are clear. There is fluid in the distal esophagus. Abdomen: The liver is normal in appearance. There is no biliary dilatation. Gallbladder is normal in appearance. The pancreas and spleen are normal in appearance. The adrenal glands and kidneys are unremarkable. Abdominal aorta is normal in course and caliber without aneurysm. There is no free air. There is no retroperitoneal adenopathy. There is an extraluminal collection of fluid projecting superiorly from the mid sigmoid colon measuring 4.2 cm. Pelvis: There is moderate diverticulosis of the left colon. There is extensive thickening of the mid sigmoid colon with surrounding inflammation. This is closely apposed to the urinary bladder which is mildly thickened at its interface with the abscess. There is no free fluid. Appendix is normal. Skeleton: There are no acute osseous findings. No suspicious bony lesions. IMPRESSION: Extensive mid sigmoid colonic diverticulitis with an adjacent abscess. . 03:30 Differential Diagnosis altered mental status, sepsis, flu, Diverticulitis . Data sp4 reviewed: vital signs, nurses notes, radiologic studies, CT scan. ED course: CT has revealed 4.2 cm sigmoid diverticular abscess without signs of perforation. Patient was discussed with the general surgeon who requested admission to medicine with general surgery consult. 07/18 00:22 Order name: CBC with Diff; Complete Time: 04:45 cp 07/18 00:22 Order name: CMP; Complete Time: 04:45 cp 07/18 00:22 Order name: Lipase; Complete Time: 04:45 cp 07/18 00:22 Order name: Urinalysis w/ reflexes; Complete Time: 04:45 cp 07/18 04:56 Order name: Lactate w/ 2H reflex if indic. EDMS 07/18 04:56 Order name: Urinalysis w/ reflexes EDMS 07/18 04:56 Order name: Basic Metabolic Panel EDMS 07/18 04:56 Order name: Basic Metabolic Panel EDMS 07/18 04:56 Order name: CBC with Automated Diff EDMS 07/18 04:56 Order name: CBC with Automated Diff EDMS 07/18 04:56 Order name: Magnesium EDMS 07/18 04:56 Order name: Magnesium EDMS 07/18 07:46 Order name: Glucose, Ancillary Testing EDNJ 07/18 00:40 Order name: CT Abd/Pelvis - IV Contrast Only cp 07/18 04:53 Order name: CONS Physician Consult EDNJ 07/18 00:22 Order name: IV Saline Lock; Complete Time: 00:55 cp 07/18 00:22 Order name: Labs collected and sent; Complete Time: 00:55 cp 07/18 03:19 Order name: NPO; Complete Time: 03:32 sp4 Administered Medications: 01:20 Drug: NS 0.9% IV 1000 ml IV at 1 bolus Per protocol; 1000 mL bolus Route: IV; Rate: 1 ha1 bolus; Site: right antecubital; 03:30 Follow up: Response: No adverse reaction; IV Status: Completed infusion; IV Intake: ha1 1000ml 01:20 Drug: Ondansetron IVP 4 mg IVP once; over 2 minutes Route: IVP; Site: right antecubital;ha1 01:50 Follow up: Response: No adverse reaction; Pain is decreased ha1 01:22 Drug: TORadol - Ketorolac IVP 15 mg IVP once Route: IVP; Site: right antecubital; ha1 01:50 Follow up: Response: No adverse reaction; Marked relief of symptoms ha1 03:45 Drug: NS 0.9% IV 1000 ml IV at 125 ml/hr continuous Route: IV; Rate: 125 ml/hr; Site: ha1 right antecubital; 06:02 Follow up: Response: No adverse reaction; IV Status: Infusion continued; IV Intake: ha1 400ml 03:45 Drug: Ondansetron IVP 4 mg IVP once; over 2 minutes Route: IVP; Site: right antecubital;ha1 04:00 Follow up: Response: No adverse reaction; Marked relief of symptoms ha1 03:47 Drug: Rocephin - Rocephin (cefTRIAXone) IVPB 1 grams IVPB once over 30 mins; (mix in 50 ha1 mL NS) Route: IVPB; Infused Over: 30 mins; Site: right antecubital; 06:05 Follow up: Response: No adverse reaction; IV Status: Completed infusion; IV Intake: [id number] 04:00 Drug: metroNIDAZOLE IVPB 500 mg 100 ml IVPB at 200 ml/hr once over 30 mins Volume: 100 ha1 ml; Route: IVPB; Rate: 200 ml/hr; Infused Over: 30 mins; Site: right antecubital; 05:00 Follow up: Response: No adverse reaction; IV Status: Completed infusion; IV Intake: ha1 100ml 04:58 Drug: morphine IVP or IV 4 mg IVP once over 4 mins Route: IVP; Infused Over: 4 mins; ha1 Site: right antecubital; 05:20 Follow up: Response: No adverse reaction; Pain is decreased; RASS: Alert and Calm (0) ha1 Disposition: 03:18 Co-signature as Attending Physician, Tanmay Renteria MD I agree with the assessment sp4 and plan of care. I reviewed the patient's care provided by Advanced Practice Provider \T\ agree w/ the diagnosis \T\ care plan. I personally saw the pt \T\ performed a substantive portion of the visit, incldng all aspects of the (History/Exam/Medical Decision Making). Disposition Summary: 07/19/23 03:30 Hospitalization Ordered Notes: Hospitalization Status: Inpatient Admission sp4 Provider: Belkis Abraham sp4 Condition: Stable sp4 Problem: new sp4 Symptoms: have improved sp4 Bed/Room Type: Standard sp4 Location: Telemetry/MedSurg (Inpatient)(07/19/23 07:15) bd Room Assignment: 218(07/19/23 07:15) bd Diagnosis - Sigmoid diverticulitis with diverticular abscess without perforation sp4 Forms: - Medication Reconciliation Form sp4 - SBAR form sp4 - Leadership Thank You Letter sp4 Signatures: Dispatcher [employer] Meka Krishna bd Johny Diaz PA PA cp Sarah Miranda, RN RN vc1 Kristan Stroud, RN RN ha1 Ann Marie Coy rv1 Tanmay Renteria MD MD sp4 Manda Jeong, HENRY MRI ASSISTANT cm12 Corrections: (The following items were deleted from the chart) 00:22 00:22 CBC+H.LAB.BRZ ordered. EDMS EDMS 00:22 00:22 COMPREHENSIVE METABOLIC PANEL+C.LAB.BRZ ordered. EDMS EDMS 00:22 00:22 LIPASE+C.LAB.BRZ ordered. EDMS EDMS 00:22 00:22 Urinalysis+U.LAB.BRZ ordered. EDMS EDMS 03:56 03:30 Telemetry/MedSurg (Inpatient) sp4 rv1 03:56 03:30 sp4 rv1 07:15 03:56 [facility] ER HOLD rv1 bd 07:15 03:56 ERHOLD- rv1 bd 15:11 03:31 Constitutional: Negative for fever, chills, and weight loss, sp4 cp
--- NOTE | 2023-07-19 04:49 | P.HP ---
Certification for Inpatient Patient admitted to: Observation <Manda Jeong - Last Filed: 07/19/23 06:31> Patient History Date of Service: 07/19/23 Reason for admission: Abdominal pain, abdominal abscess History of Present Illness: 38-year-old male with a past medical history of diabetes, presents to the emergency room with abdominal pain. He reports abdominal pain started 3 days ago and has not been relieved. He reported chills, however he did not check the temperature yesterday. No reported nausea vomiting, no reported chest pain, he reports history of diabetes on metformin, he reports he does not check his sugars daily average blood sugars run 130s. He reports burning with urination, no reported chest pain, polyuria, polydipsia, dizziness, chest pain. Patient reports he does not have a PCP, will need social service consult for reduced clinics. Plan to admit for abdominal abscess, surgery to consult, laboratory evaluation mild hypokalemia 3.4, glucose 154, leukocytosis 13.10, started on Flagyl, Zosyn, UA glucose negative, trace ketones, trace hematuria, no leukocytosis CT of the abdomen pelvis, extensive mid colonic diverticulitis with an adjacent abscess. Patient kept n.p.o. for surgery to eval - Past Medical/Surgical History -: Uncontrolled diabetes -: Acute diverticulitis June 2023 Psychosocial/ Personal History: , lives with spouse - Social History Smoking Status: Current some day smoker Counseled patient to stop smoking for: less than 10 minutes Alcohol use: No CD- Drugs: No Caffeine use: Yes Place of Residence: Home <Manda Jeong - Last Filed: 07/19/23 06:31> Date of Service: 07/19/23 <Belkis Abraham - Last Filed: 07/19/23 13:08> Allergies No Known Allergies Allergy (Unverified 07/19/23 05:34) Review of Systems Per HPI <Manda Jeong - Last Filed: 07/19/23 06:31> Physical Examination - Physical Exam General: Alert, In no apparent distress, Oriented x3 HEENT: Atraumatic, Normocephalic Respiratory: Clear to auscultation bilaterally, Normal air movement Cardiovascular: No edema, Normal pulses Capillary refill: <2 Seconds Gastrointestinal: Other (Suprapubic tenderness) Integumentary: No rashes, No breakdown Neurological: Normal speech, Normal strength at 5/5 x4 extr - Studies Laboratory Data (last 24 hrs) 07/19/23 07/19/23 00:45 00:45 WBC 13.10 H Hgb 15.8 Hct 46.9 Plt Count 294 Sodium 135 L Potassium 3.4 L BUN 13 Creatinine 0.88 Glucose 154 H Total Bilirubin 1.0 AST 14 L ALT 29 Alkaline Phosphatase 71 Lipase 17 <Manda Jeong - Last Filed: 07/19/23 06:31> - Studies Laboratory Data (last 24 hrs) 07/19/23 07/19/23 00:45 00:45 WBC 13.10 H Hgb 15.8 Hct 46.9 Plt Count 294 Sodium 135 L Potassium 3.4 L BUN 13 Creatinine 0.88 Glucose 154 H Total Bilirubin 1.0 AST 14 L ALT 29 Alkaline Phosphatase 71 Lipase 17 <Belkis Abraham C - Last Filed: 07/19/23 13:08> Assessment and Plan - Plan Assessment plan Abdominal pain Diverticulitis with abdominal abscess Surgery to eval, n.p.o. IV Zosyn, IV Flagyl Diabetes uncontrolled Accu-Cheks, sliding scale insulin, Check A1c Diabetic education given to patient in room regarding diabetic diet, side effects of uncontrolled diabetes, diabetes complications, diabetes follow-up, educated on exercise recommendation Dietitian consult for diverticulitis, diabetic diet Social service consult for clinics based on reduced, income, no PCP Tobacco use Educated on tobacco Educated on tobacco cessation greater than 10 minutes Full code Diet n.p.o. DVT SCDs Disposition Home independent Discharge Plan: Home - Advance Directives Does patient have a Living Will: No Does patient have a Durable POA for Healthcare: No - Code Status/Comfort Care Code Status: Full Code Critical Care: No Time Spent Managing Pts Care (In Minutes): 55 <Manda Jeong - Last Filed: 07/19/23 06:31> - Plan Pt seen and examined. I agree with the note by the DISTRIBUTION CENTER MANAGER. Pt is a 38yo male with past medical history of diabetes who presents with abdominal pain. The abdominal pain started 3 days ago and progressively worsened. On admission, CT abd shows diverticulitis with abscess. Lab studies show mild hypokalemia 3.4, glucose 154, leukocytosis 13.10. At bedside, Pt is in NAD A/p; Diverticulitis with abscess: Will continue zosyn and f/u blood cx. CT of the abdomen pelvis, extensive mid colonic diverticulitis with an adjacent abscess. Gen surgeon is following. Pt is NPO. DM II: Continue accuchek, SSI and ADA diet Hypokalemia: k is 3.4. Will replete and monitor. Tobacco abuse: Pt was advised to quit smoking. Will give nicotine patch DVT ppx: SCD Code: full <Belkis Abraham - Last Filed: 07/19/23 13:08>
[2023-07-19] MEDS ORDERED: MORPHINE 2 MG/ML SYR IV PRN (04:56)
[2023-07-19] MEDS ORDERED: SODIUM CHLORIDE 0.9% 10ML INJ IV PRN (05:00)
[2023-07-19] MEDS: NA CHLORIDE 0.9% 1,000 ML IV SCH (05:00)
[2023-07-19 05:54] VITALS: BMI 29.4
[2023-07-19] MEDS: INSULIN REGULAR (HUMAN) 100 UNIT/ML SQ SCH (07:30)
[2023-07-19] MEDS: PIPER TAZO 3.375 GM in NA CHLORIDE 0.9% 100 ML IV SCH ×2 (09:00→12:30)
[2023-07-19] MEDS: PANTOPRAZOLE 40 MG INJ IVP SCH (09:00)
[2023-07-19] MEDS ORDERED: METRONIDAZOLE 500mg IVPB 500 MG/100 ML BAG IV SCH ×2 (09:00→17:00)
[2023-07-19] MEDS ORDERED: PIPER TAZO 3.375 GM in NA CHLORIDE 0.9% 100 ML IV SCH (12:30)
--- NOTE | 2023-07-19 13:22 | RAD REPORT ---
EXAM DESCRIPTION: CT - Abdomen Pelvis W Contrast - 07/19/2023 6:41 am CLINICAL HISTORY: Lower abdomen pain COMPARISON: None. TECHNIQUE: CT ABDOMEN PELVIS WITH IV CONTRAST on 07/19/2023 12:40 AM CDT This exam was performed according to our departmental dose-optimization program, which includes autom ated exposure control, adjustment of the mA and/or kV according to patient size and/or use of iterati ve reconstruction technique. FINDINGS: Lower lungs are clear. There is fluid in the distal esophagus. Abdomen: The liver is normal in appearance. There is no biliary dilatation. Gallbladder is normal in appearance. The pancreas and spleen are normal in appearance. The adrenal glands and kidneys are unre markable. Abdominal aorta is normal in course and caliber without aneurysm. There is no free air. There is no r etroperitoneal adenopathy. There is an extraluminal collection of fluid projecting superiorly from th e mid sigmoid colon measuring 4.2 cm. Pelvis: There is moderate diverticulosis of the left colon. There is extensive thickening of the mid sigmoid colon with surrounding inflammation. This is closely apposed to the urinary bladder which is mildly thickened at its interface with the abscess. There is no free fluid. Appendix is normal. Skeleton: There are no acute osseous findings. No suspicious bony lesions. IMPRESSION: Extensive mid sigmoid colonic diverticulitis with an adjacent abscess. Electronically signed by: Irineo Childs MD 07/19/2023 03:08 AM CDT Due to temporary technical issues with the PACS/Fluency reporting system, reports are being signed by the in house radiologists without review as a courtesy to insure prompt reporting. The interpreting radiologist is fully responsible for the content of the report.
[2023-07-19] MEDS: MORPHINE 4 MG/ML SYR IV PRN (15:01)
[2023-07-20 03:54] LABS: Absolute Basophils 0.1 K/uL (0-0.5); Absolute Eosinophils 0.2 K/uL (0-0.5); Absolute Lymphocytes (CBC) 1.9 K/uL (0.7-4.9); Absolute Monocytes 1.7 K/uL (0.1-1.3); Basophils % 0.6 % (0-1.3); Eosinophils % 1.3 % (0-4.4); Hematocrit 43.9 % (39.6-49.0); Hemoglobin 14.9 g/dL (13.6-17.9); MCH 31.2 pg (27.0-35.0); MCHC 33.9 g/dL (32.0-36.0); MCV 92.2 fL (80-100); MPV 8.6 fL (7.6-11.3); Monocytes % 13.4 % (3.3-12.3); Neutrophils % 69.7 % (41.7-73.7); Platelets 300 thou/uL (152-406); RBC Red Blood Cell Count 4.76 M/uL (4.33-5.43); Red Cell Distribution Width 13.1 % (12.1-15.2)
[2023-07-20 04:09] LABS: Anion Gap 8.7 mEq/L (5.0-15.0); Magnesium 2.7 mg/dL (1.6-2.4); Potassium 3.7 mEq/L (3.5-5.1)
[2023-07-20 09:32] VITALS: O2SAT 98
--- NOTE | 2023-07-20 14:10 | P.PN ---
Subjective Date of Service: 07/20/23 Chief Complaint: Abdominal pain, abdominal abscess Pt is resting comfortably in bed. Pt reports slight low abdominal pain. He is getting iv zosyn. No other complaints. Review of Systems General: Unremarkable Eyes: Unremarkable ENT: Unremarkable Respiratory: Unremarkable Cardiovascular: Unremarkable Gastrointestinal: Abdominal Pain Genitourinary: Unremarkable Musculoskeletal: Unremarkable Integumentary: Unremarkable Neurological: Unremarkable Lymphatics: Unremarkable Physical Examination - Vital Signs Temperature: 98.7 F Blood Pressure: 105/72 Pulse: 74 Respirations: 16 Pulse Ox (%): 95 - Physical Exam General: Alert, In no apparent distress, Oriented x3 HEENT: Atraumatic, Normocephalic, PERRLA Neck: Supple, 2+ carotid pulse no bruit Respiratory: Clear to auscultation bilaterally, Normal air movement Cardiovascular: No edema, Normal pulses, Regular rate/rhythm, Normal S1 S2 Capillary refill: <2 Seconds Gastrointestinal: Normal bowel sounds, Soft and benign, Non-distended, Tenderness Musculoskeletal: No clubbing, No swelling Integumentary: No rashes, No breakdown Neurological: Normal gait, Normal speech, Normal strength at 5/5 x4 extr Lymphatics: No axilla or inguinal lymphadenopathy Assessment And Plan - Plan Diverticulitis with abscess: Will continue zosyn and f/u blood cx. CT of the abdomen pelvis, extensive mid colonic diverticulitis with an adjacent abscess. Gen surgeon is following. DM II: Continue accuchek, SSI and ADA diet Hypokalemia: k is 3.7<- 3.4. Will replete and monitor. Tobacco abuse: Pt was advised to quit smoking. Will give nicotine patch DVT ppx: SCD Code: full Dispo: pending hospital course
[2023-07-20 17:06] LABS: Specific Gravity > 1.030 (1.005-1.030); Sqamous Epithelial <5 /HPF (None Seen); Urine Bacteria <20 /HPF (<20); Urine Bilirubin NEGATIVE (Negative); Urine Blood 2+ (Negative); Urine Clarity Clear (Clear); Urine Color Yellow (Yellow); Urine Culture Reflex Order NOT NEEDED; Urine Glucose NEGATIVE (Negative); Urine Ketones 3+ (Negative); Urine Microscopic Reflex YN ORDER UMIC; Urine Nitrite NEGATIVE (Negative); Urine Protein 3+ (Negative); Urine RBC >50 /HPF (None Seen); Urine Urobilinogen 2+ (Normal); Urine WBC <5 /HPF (<5); Urine pH 6.5 (5.0-7.0)
[2023-07-21 08:03] LABS: Absolute Eosinophils 0.3 K/uL (0-0.5); Absolute Lymphocytes (CBC) 1.8 K/uL (0.7-4.9); Absolute Monocytes 1.6 K/uL (0.1-1.3); Absolute Neutrophil 9.1 K/uL (1.8-8.0); Basophils % 0.3 % (0-1.3); Eosinophils % 2.5 % (0-4.4); Hemoglobin 15.6 g/dL (13.6-17.9); Lymphocytes % 13.7 % (15.3-44.8); MCH 31.2 pg (27.0-35.0); MCHC 33.9 g/dL (32.0-36.0); MCV 91.9 fL (80-100); Monocytes % 12.5 % (3.3-12.3); Nucleated Red Blood Cells % 0.1 % (0-0); Platelets 348 thou/uL (152-406); RBC Red Blood Cell Count 5.01 M/uL (4.33-5.43); Red Cell Distribution Width 12.8 % (12.1-15.2)
[2023-07-21 08:19] LABS: ALT/SGPT 24 U/L (16-61); AST/SGOT < 10 U/L (15-37); Albumin 3.3 g/dL (3.4-5.0); Albumin/Globulin Ratio 0.7 (1.1-1.8); Alkaline Phosphatase 73 U/L (45-117); Anion Gap 8.9 mEq/L (5.0-15.0); BUN Blood Urea Nitrogen 10 mg/dL (7-18); Bicarbonate 28 mEq/L (21-32); Globulin 4.9 g/dL (2.3-3.5); Glomerular Filtration Rate 116 ml/min (=/>90); Glucose Level 112 mg/dL (74-106); Magnesium 2.4 mg/dL (1.6-2.4); Phosphorus 4.1 mg/dL (2.5-4.9); Potassium 3.9 mEq/L (3.5-5.1); Protein, Total 8.2 g/dL (6.4-8.2); Sodium Level 134 mEq/L (136-145)
--- NOTE | 2023-07-21 11:06 | P.PN ---
Subjective Date of Service: 07/21/23 Chief Complaint: Abdominal pain, abdominal abscess Pt is resting comfortably in bed. Pt reports slight low abdominal pain. WBC is 12.8 <- 13.1. He is getting iv zosyn. No other complaints. Review of Systems General: Unremarkable Eyes: Unremarkable ENT: Unremarkable Respiratory: Unremarkable Cardiovascular: Unremarkable Gastrointestinal: Unremarkable Genitourinary: Unremarkable Musculoskeletal: Unremarkable Integumentary: Unremarkable Neurological: Unremarkable Lymphatics: Unremarkable Physical Examination - Vital Signs Temperature: 98 F Blood Pressure: 92/66 Pulse: 75 Respirations: 16 Pulse Ox (%): 96 - Physical Exam General: Alert, In no apparent distress, Oriented x3 HEENT: Atraumatic, Normocephalic, PERRLA Neck: Supple, 2+ carotid pulse no bruit Respiratory: Clear to auscultation bilaterally, Normal air movement Cardiovascular: No edema, Normal pulses, Regular rate/rhythm Capillary refill: <2 Seconds Gastrointestinal: Normal bowel sounds, Soft and benign, Non-distended Musculoskeletal: No clubbing, No swelling Integumentary: No rashes, No breakdown, No significant lesion Neurological: Normal gait, Normal speech, Normal strength at 5/5 x4 extr, Normal tone Lymphatics: No axilla or inguinal lymphadenopathy Assessment And Plan - Plan Diverticulitis with abscess: Will continue zosyn and f/u blood cx. CT of the abdomen pelvis, extensive mid colonic diverticulitis with an adjacent abscess. Gen surgeon is following. WBC is trending down 12.8 <- 13.1. He has slight low abdominal pain. UA is unremarkable. DM II: Continue accuchek, SSI and ADA diet Hypokalemia: k is 3.9<- 3.7<- 3.4. Will replete and monitor. Tobacco abuse: Pt was advised to quit smoking. Will give nicotine patch DVT ppx: SCD Code: full Dispo: pending hospital course
[2023-07-22 03:20] LABS: Absolute Basophils 0.1 K/uL (0-0.5); Absolute Eosinophils 0.3 K/uL (0-0.5); Absolute Lymphocytes (CBC) 2.2 K/uL (0.7-4.9); Absolute Monocytes 1.6 K/uL (0.1-1.3); Absolute Neutrophil 9.5 K/uL (1.8-8.0); Basophils % 0.8 % (0-1.3); Eosinophils % 1.9 % (0-4.4); Hematocrit 45.8 % (39.6-49.0); Hemoglobin 15.2 g/dL (13.6-17.9); Lymphocytes % 15.8 % (15.3-44.8); MCH 30.7 pg (27.0-35.0); MCHC 33.2 g/dL (32.0-36.0); MCV 92.5 fL (80-100); MPV 8.5 fL (7.6-11.3); Monocytes % 11.7 % (3.3-12.3); Neutrophils % 69.8 % (41.7-73.7); Platelets 338 thou/uL (152-406); RBC Red Blood Cell Count 4.95 M/uL (4.33-5.43); Red Cell Distribution Width 12.8 % (12.1-15.2)
[2023-07-22 03:53] LABS: Albumin 3.2 g/dL (3.4-5.0); Albumin/Globulin Ratio 0.7 (1.1-1.8); Anion Gap 7.7 mEq/L (5.0-15.0); Bilirubin Total 0.7 mg/dL (0.2-1.0); Globulin 4.6 g/dL (2.3-3.5); Magnesium 2.2 mg/dL (1.6-2.4); Phosphorus 4.1 mg/dL (2.5-4.9); Potassium 3.7 mEq/L (3.5-5.1); Protein, Total 7.8 g/dL (6.4-8.2)
[2023-07-22] MEDS: POTASSIUM CL SA 10 MEQ TAB PO ONE (05:01)
[2023-07-22] MEDS: POTASSIUM 25 MEQ EFFERV TAB PO ONE (09:27)
--- NOTE | 2023-07-22 10:46 | P.PN ---
Subjective Date of Service: 07/22/23 Chief Complaint: Abdominal pain, abdominal abscess Subjective: No C/O voiced (WBC trending up today, mild continued tenderness to LLQ) <Stella Luna - Last Filed: 07/22/23 10:47> Date of Service: 07/22/23 <Belkis Abraham C - Last Filed: 07/22/23 11:20> Review of Systems 10-point ROS is otherwise unremarkable Gastrointestinal: Abdominal Pain <Stella Luna - Last Filed: 07/22/23 10:47> Physical Examination - Vital Signs Temperature: 98.3 F Blood Pressure: 119/84 Pulse: 77 Respirations: 16 Pulse Ox (%): 99 - Physical Exam General: Alert, In no apparent distress, Oriented x3 HEENT: Atraumatic, Normocephalic Neck: Supple Respiratory: Normal air movement Cardiovascular: Normal pulses, Regular rate/rhythm Capillary refill: <2 Seconds Gastrointestinal: Normal bowel sounds, Tenderness (LLQ) Musculoskeletal: No clubbing, No swelling Integumentary: No rashes Neurological: Normal speech, Normal tone, Normal affect Lymphatics: No axilla or inguinal lymphadenopathy External genitalia: Deferred Rectal: Deferred <Stella Luna - Last Filed: 07/22/23 10:47> Assessment And Plan - Plan Assessment and Plan - Plan Assessment plan Abdominal pain Diverticulitis with abdominal abscess Dr. Sepulveda following, pt has been tolerating full liquid diet. IV Zosyn, IV Flagyl 07/22/23 WBC trending up to 13. Dr. Sepulveda in to see pt. Will repeat CT abd/pelvis with contrast. NPO Diabetes uncontrolled Accu-Cheks, sliding scale insulin, Check A1c Diabetic education given to patient in room regarding diabetic diet, side effects of uncontrolled diabetes, diabetes complications, diabetes follow-up, educated on exercise recommendation Dietitian consult for diverticulitis, diabetic diet Social service consult for clinics based on reduced, income, no PCP Tobacco use Educated on tobacco Educated on tobacco cessation greater than 10 minutes Full code Diet n.p.o. DVT SCDs <Stella Luna - Last Filed: 07/22/23 10:47> - Plan Pt seen and examined. I agree with the note by the STUDENT OUTREACH COORDINATOR. WBC is 13 <- 12. HE still has slight abdominal pain. Will repeat CT abd/pelvis with contrast. Continue abx and insuln regimen. <Belkis Abraham - Last Filed: 07/22/23 11:20>
[2023-07-22] MEDS: NA CHLORIDE 0.9% 1,000 ML IV SCH (11:01)
--- NOTE | 2023-07-22 12:46 | RAD REPORT ---
EXAM DESCRIPTION: CT - Abdomen Pelvis W Contrast - 07/22/2023 11:16 am CLINICAL HISTORY: diverticular abscess re-eval COMPARISON: Abdomen Pelvis W Contrast dated 07/19/2023 TECHNIQUE: Thin cut axial CT imaging of the abdomen and pelvis was performed following intravenous a dministration of 100 mL Isovue 300. Multiplanar reformats were generated and reviewed. All CT scans are performed using dose optimization technique as appropriate and may include automated exposure control or mA/KV adjustment according to patient size. FINDINGS: No suspicious findings in the lung bases. The liver, spleen, adrenal glands, and pancreas show no suspicious findings. Gallbladder and biliary tree are also without suspicious finding. Symmetric renal function is seen with no hydronephrosis or suspicious renal mass. Appendix is unremarkable. No dilated bowel loops. Segment of sigmoid colon wall thickening, with boston cent fat stranding, that now extends to the pelvic sidewalls bilaterally, and the mesial rectal fat. Adventitial marginally enhancing fluid collection along the inferior wall of the sigmoid colon, exten ding to the mural layers of the dome of the bladder, now with more discretely marginated appearance. This measures 5.4 x 4.0 cm in greatest axial dimensions, and 4.2 cm in greatest craniocaudal extent, increased in size from 4.2 x 3.3 cm on the prior exam when measured in a similar fashion. No free air , or free fluid. No hernia, mass or bulky lymphadenopathy. The urinary bladder shows more pronounced regional wall thickening along its superior wall with hyperenhancement. No suspicious bony findings. IMPRESSION: More discretely marginated appearance of the diverticular abscess along the inferior wal l of the sigmoid colon extending to the mural layers of the dome of the bladder. The abscess has incr eased in size, now measuring 5.3 cm in greatest dimension. Some thickening of the superior wall of the bladder compatible with adjacent cystitis as well.
--- NOTE | 2023-07-22 12:52 | P.PN ---
Subjective Date of Service: 07/20/23 Chief Complaint: Abdominal pain, abdominal abscess Subjective: Improving (Patient is ambulatory, passing gas and small bowel movements, pain improved.) Physical Examination - Vital Signs Temperature: 97.2 F Blood Pressure: 109/70 Pulse: 77 Respirations: 16 Pulse Ox (%): 98 - Physical Exam General: Alert, In no apparent distress, Cooperative Neck: Supple, Without JVD or thyroid abnormality Respiratory: Clear to auscultation bilaterally, Normal air movement Cardiovascular: Regular rate/rhythm Gastrointestinal: Other (soft, mild suprapubic and LLQ TTP, ND, no rebound, no peritonitis, minimal improvement from prior.) Musculoskeletal: No clubbing, No swelling, No contractures, No erythema, No tenderness, No warmth Integumentary: No rashes Neurological: Normal gait, Normal speech Assessment And Plan - Current Problems (Diagnosis) (1) Diverticular disease of intestine with perforation and abscess Current Visit: Yes Status: Acute Plan: - Continue Zosyn - Serial exams - clear liquid diet - ambulate with assist - continue medical management per primary team - smoking cessation reviewed, diabetes management reviewed - reiterated the need for colonoscopy in future after resolution of symptoms (2) Diabetes Current Visit: Yes Status: Acute
--- NOTE | 2023-07-22 12:54 | P.PN ---
Subjective Date of Service: 07/21/23 Chief Complaint: Abdominal pain, abdominal abscess Subjective: Improving (ambulatory, more bowel function, improved pain.) Physical Examination - Vital Signs Temperature: 97.2 F Blood Pressure: 109/70 Pulse: 77 Respirations: 16 Pulse Ox (%): 98 - Physical Exam General: Alert, In no apparent distress, Oriented x3, Cooperative Respiratory: Clear to auscultation bilaterally, Normal air movement Cardiovascular: Regular rate/rhythm Gastrointestinal: Other (soft, mild suprapubic and LLQ TTP, ND, no rebound, no guarding, no peritonitis) Musculoskeletal: No clubbing, No swelling Integumentary: No rashes Neurological: Normal gait, Normal speech Assessment And Plan - Current Problems (Diagnosis) (1) Diverticular disease of intestine with perforation and abscess Current Visit: Yes Status: Acute Plan: - Continue Zosyn - Serial exams - clear liquid diet, advance to full liquid as tolerated - ambulate with assist - continue medical management per primary team - smoking cessation reviewed, diabetes management reviewed - reiterated the need for colonoscopy in future after resolution of symptoms (2) Diabetes Current Visit: Yes Status: Acute
--- NOTE | 2023-07-22 12:56 | P.PN ---
Subjective Date of Service: 07/22/23 Chief Complaint: Abdominal pain, abdominal abscess Subjective: Improving (Patient continues to feel better, passing more gas, bowel function, ambulatory) Physical Examination - Vital Signs Temperature: 97.2 F Blood Pressure: 109/70 Pulse: 77 Respirations: 16 Pulse Ox (%): 98 - Physical Exam General: Alert, In no apparent distress, Cooperative Neck: Supple Respiratory: Clear to auscultation bilaterally, Normal air movement Cardiovascular: Regular rate/rhythm Gastrointestinal: Other (soft, mild suprapubic and LLQ TTP, ND, no rebound, no guarding, no peritonitis) Integumentary: No rashes, No breakdown Neurological: Normal gait, Normal speech Assessment And Plan - Current Problems (Diagnosis) (1) Diverticular disease of intestine with perforation and abscess Current Visit: Yes Status: Acute Plan: - Continue Zosyn - Serial exams - Patient had increased leukocytosis - will repeat CT abdomen and pelvis to evaluate abscess, npo until after imaging - ambulate with assist - continue medical management per primary team - smoking cessation reviewed, diabetes management reviewed - reiterated the need for colonoscopy in future after resolution of symptoms (2) Diabetes Current Visit: Yes Status: Acute
--- NOTE | 2023-07-22 15:36 | CON ---
Brief History Of Present Illness: The patient is a 38-year-old man who presents with approximately 3 -4 day history of abdominal pain beginning prior to his arrival. He states that the pain started low er in the pelvic area with some radiation to the left lower quadrant. He has not had pain of this le bharati of severity, but has had multiple episodes of similar attacks. However, they were much more mild over the course of the past year. He states that on those occasions, he thought it was related to i ndigestion or something that he ate. He simply changed his diet to clear liquids for several days an d hydrated and his symptoms seemed to improve. However, on this occasion, they continued to get wors e. He had chills and subjective fever, but no measured fever was reported. He denied nausea, vomiti ng, chest pain, shortness of breath. He does not manage his diabetes as he has no primary medical do ctor by his report and he believes that he has had episodes of diabetes exacerbations before in the ast as well. During my admission, he states that he feels significantly better, but continues to hav e some mild to moderate abdominal pain in the suprapubic area predominantly. He still continues to h ave bowel function with bowel movements every day including passage of gas. He has no worsening othe r abdominal symptoms. No distention at this time or other complaints. Past Medical History: Uncontrolled diabetes, prior episodes of diverticulitis. He denies ever havin g colonoscopy for this or interrogation. Social History: He is a current every day smoker. He drinks alcohol recreationally. Denies recreat ional drug use. Allergies: NO KNOWN DRUG ALLERGIES. Medications: He does not take any medications, but was prescribed metformin for his diabetes in the past. Physical Examination: At the time of my examination: Vital Sighs: His blood pressure is 127/78, pulse is 80, respiratory rate 16, temperature 97.8. His O2 saturation was 98% on room air. General: He is awake, alert, oriented. Psychiatric: He was appropriate and conversive. HEENT: Normocephalic. His sclerae were anicteric. Mucous membranes are moist. Oropharynx clear. Neck: Supple without JVD. Chest: Normal expansion and excursion. Cardiovascular: Regular rate and rhythm. Pulmonary: Clear to auscultation bilaterally. Abdomen: Soft with minimal suprapubic tenderness to deep palpation. No rebound. No guarding. No f ocal peritonitis. He has some pain in the left lower quadrant as well on deep palpation. No surgica l scars are evident. Extremities: No clubbing, cyanosis, edema. Skin: Warm and dry. Laboratory Data: Revealed a white blood count was 13.1, hemoglobin was 15.8, hematocrit 46.9, platel et count was 294. Neutrophils were 72%. His sodium 135, potassium 3.4, chloride 102, carbon dioxide is 28, BUN 13, creatinine 0.8, glucose is 154, lactic acid was less than 0.8. Calcium 9.3. His tot al bilirubin was 1.0, AST 14, ALT 29, alkaline phosphatase 71, lipase is 17. His urinalysis showed t race ketones, trace blood, 1+ urobilinogen. He had a CT scan of the abdomen and pelvis, which is off icially read as extensive mid sigmoid colonic diverticulitis with an adjacent abscess. Specifically, there is an extraluminal collection of fluid projecting superiorly in the mid sigmoid colon measurin g 4.2 cm. There is moderate diverticulosis of the left sigmoid colon. Extensive thickening of the m id sigmoid colon wall surrounding inflammation closely opposed to the urinary bladder, which is mildl y thickened at its interface with the abscess. No free fluid. Appendix is normal. Assessment And Plan: This is a 38-year-old male, who comes in with signs and symptoms of an acute di verticulitis with diverticular abscess of approximately 4.2 cm. 1.IV fluid hydration. 2.Electrolyte correction. 3.Antibiotics with Zosyn 3.375 IV. 4.Serial abdominal exams. 5.The patient will require colonoscopy as an outpatient if he is able to successfully resolve this w [facility] surgical intervention. 6.I have explained the risks, benefits, and alternatives of nonoperative management versus operative management. Operative management would include an exploratory laparotomy, possible colostomy creati on, and indicated procedures. I have explained the risks, benefits, and alternatives of the surgical procedure including, but not limited to bleeding, infection, damage to surrounding tissues, need for further operation and procedures, possible permanent colostomy creation, possible need for multiple abdominal surgeries, ongoing wound care as well, and other unforeseen complications in the perioperat cassidy period including but not limited to, heart attack, strokes, blood clots, and other unforeseen com plications in the perioperative period. Patient displayed understanding of the above stated plan, ag susanna to proceed as indicated, is currently ambulatory in the room, and we will proceed with nonoperat cassidy management and the plan as described above. 7.Continue medical management per primary team with regard to his diabetes and other possible medica l comorbid conditions, which may be have not been assessed as he has not had any primary care in the recent history. Thank you for this interesting consult. CHARLENE/FERNANDO Voice ID: [id number] Report ID: [id number]
[2023-07-22] MEDS: ERTAPENEM SODIUM 1 GM VIAL IVPB ONE (17:22)
[2023-07-23 03:51] LABS: Absolute Basophils 0.1 K/uL (0-0.5); Absolute Eosinophils 0.3 K/uL (0-0.5); Absolute Monocytes 1.6 K/uL (0.1-1.3); Absolute Neutrophil 9.8 K/uL (1.8-8.0); Basophils % 0.9 % (0-1.3); Eosinophils % 2.5 % (0-4.4); Hematocrit 43.7 % (39.6-49.0); Hemoglobin 14.6 g/dL (13.6-17.9); Lymphocytes % 14.6 % (15.3-44.8); MCH 30.8 pg (27.0-35.0); MCHC 33.5 g/dL (32.0-36.0); MCV 92.1 fL (80-100); MPV 8.4 fL (7.6-11.3); Monocytes % 11.6 % (3.3-12.3); Neutrophils % 70.4 % (41.7-73.7); Platelets 350 thou/uL (152-406); RBC Red Blood Cell Count 4.75 M/uL (4.33-5.43); Red Cell Distribution Width 12.9 % (12.1-15.2)
[2023-07-23 04:37] LABS: ALT/SGPT 26 U/L (16-61); Albumin 3.1 g/dL (3.4-5.0); Albumin/Globulin Ratio 0.6 (1.1-1.8); Alkaline Phosphatase 76 U/L (45-117); Anion Gap 8.8 mEq/L (5.0-15.0); BUN Blood Urea Nitrogen 10 mg/dL (7-18); Bicarbonate 28 mEq/L (21-32); Bilirubin Total 0.8 mg/dL (0.2-1.0); Globulin 4.8 g/dL (2.3-3.5); Glomerular Filtration Rate 124 ml/min (=/>90); Glucose Level 95 mg/dL (74-106); Magnesium 2.2 mg/dL (1.6-2.4); Phosphorus 3.6 mg/dL (2.5-4.9); Potassium 3.8 mEq/L (3.5-5.1); Protein, Total 7.9 g/dL (6.4-8.2); Sodium Level 134 mEq/L (136-145)
[2023-07-23 04:38] LABS: AST/SGOT < 10 U/L (15-37)
[2023-07-23] MEDS: KCL 20 MEQ/100 mL IVPB 20 MEQ/100 ML BAG IV SCH ×2 (05:00→07:58)
[2023-07-23] MEDS: INSULIN REGULAR (HUMAN) 100 UNIT/ML SQ SCH (11:37)
--- NOTE | 2023-07-23 11:41 | P.PN ---
Subjective Date of Service: 07/23/23 Chief Complaint: Abdominal pain, abdominal abscess Pt is resting comfortably in bed. Pt reports slight low abdominal pain. WBC is 13.9<-12.8 <- 13.1. CT abd shows increase in the size of abscess. Consulted gen surgeon. Will keep pt NPO and start clinimix. He is getting iv zosyn. No other complaints. Review of Systems General: Unremarkable Eyes: Unremarkable ENT: Unremarkable Respiratory: Unremarkable Cardiovascular: Unremarkable Gastrointestinal: Abdominal Pain Genitourinary: Unremarkable Musculoskeletal: Unremarkable Neurological: Unremarkable Lymphatics: Unremarkable Physical Examination - Vital Signs Temperature: 98.9 F Blood Pressure: 105/57 Pulse: 81 Respirations: 16 Pulse Ox (%): 99 - Physical Exam General: Alert, In no apparent distress, Oriented x3 HEENT: Atraumatic, Normocephalic, PERRLA Neck: Supple, 2+ carotid pulse no bruit Respiratory: Clear to auscultation bilaterally, Normal air movement Cardiovascular: No edema, Normal pulses, Regular rate/rhythm, Normal S1 S2 Capillary refill: <2 Seconds Gastrointestinal: Normal bowel sounds, Soft and benign, Non-distended, Tenderness Musculoskeletal: No clubbing, No swelling Integumentary: No rashes, No breakdown, No significant lesion Neurological: Normal speech, Normal strength at 5/5 x4 extr, Normal tone, Sensation intact Lymphatics: No axilla or inguinal lymphadenopathy Assessment And Plan - Plan Diverticulitis with abscess: Will continue zosyn and f/u blood cx. CT of the abdomen pelvis, extensive mid colonic diverticulitis with an adjacent abscess. Gen surgeon is following. WBC is trending down 13.9<- 12.8 <- 13.1. He has slight low abdominal pain. Repeat CT abd shows increase in the size of the abscess ( 5.3cm). Gen surgeon wants pt to be NPO and continue clinimix. Gen surgeon wanst o assess him daily for possible surgical intervention. Will continue abx for now. UA is unremarkable. DM II: Continue accuchek, SSI and ADA diet Hypokalemia: k is 3.8<- 3.9<- 3.7<- 3.4. Will replete and monitor. Tobacco abuse: Pt was advised to quit smoking. Will give nicotine patch DVT ppx: SCD Code: full Dispo: pending hospital course
--- NOTE | 2023-07-23 11:50 | P.PN ---
Subjective Date of Service: 07/23/23 Chief Complaint: Abdominal pain, abdominal abscess Patient continues to state he feels better he is voiding more easily today his pain is improving he has no fever or chills and feels less distended. He continues to pass gas. Physical Examination - Vital Signs Temperature: 98.9 F Blood Pressure: 105/57 Pulse: 81 Respirations: 16 Pulse Ox (%): 99 - Physical Exam General: Alert, In no apparent distress, Cooperative HEENT: Mucous membr. moist/pink Respiratory: Clear to auscultation bilaterally, Normal air movement Cardiovascular: Regular rate/rhythm Gastrointestinal: Other (Soft mild suprapubic tenderness to palpation, no guarding no rebound no peritonitis. Similar to previous exam.) Assessment And Plan - Current Problems (Diagnosis) (1) Diverticular disease of intestine with perforation and abscess Current Visit: Yes Status: Acute Plan: - Continue Zosyn - Serial exams - Patient had increased leukocytosis -CT scan showed enlargement of his intra- abdominal abscess but no other changes significantly from previous CT scan. - ambulate with assist - continue medical management per primary team - smoking cessation reviewed, diabetes management reviewed - reiterated the need for colonoscopy in future after resolution of symptoms - Patient was given 1 dose of Invanz yesterday. -ID consultation -Return to ice chips only by mouth and start PPN for nutrition (2) Diabetes Current Visit: Yes Status: Acute
[2023-07-23] MEDS ORDERED: AA 4.25 %/D5W/ELECTROLYTES 2,000 ML IV SCH ×2 (13:00→17:00)
[2023-07-23] MEDS: AA 4.25 %/D5W/ELECTROLYTES 2,000 ML IV SCH (17:09)
[2023-07-24 04:55] LABS: Absolute Basophils 0.1 K/uL (0-0.5); Absolute Eosinophils 0.4 K/uL (0-0.5); Absolute Lymphocytes (CBC) 2.1 K/uL (0.7-4.9); Absolute Monocytes 1.7 K/uL (0.1-1.3); Basophils % 0.5 % (0-1.3); Eosinophils % 3.3 % (0-4.4); Hematocrit 42.3 % (39.6-49.0); Hemoglobin 14.3 g/dL (13.6-17.9); MCHC 33.9 g/dL (32.0-36.0); MCV 91.4 fL (80-100); MPV 8.1 fL (7.6-11.3); Monocytes % 12.4 % (3.3-12.3); Neutrophils % 67.8 % (41.7-73.7); Platelets 362 thou/uL (152-406); RBC Red Blood Cell Count 4.63 M/uL (4.33-5.43); Red Cell Distribution Width 12.8 % (12.1-15.2)
[2023-07-24 05:38] LABS: Albumin/Globulin Ratio 0.7 (1.1-1.8); Anion Gap 7.7 mEq/L (5.0-15.0); Bilirubin Total 0.7 mg/dL (0.2-1.0); Globulin 4.5 g/dL (2.3-3.5); Potassium 3.7 mEq/L (3.5-5.1); Prealbumin 8.8 mg/dL (20-40); Protein, Total 7.5 g/dL (6.4-8.2)
--- NOTE | 2023-07-24 08:25 | P.PN ---
Subjective Date of Service: 07/24/23 Chief Complaint: Abdominal pain, abdominal abscess Subjective: No new changes (PICC placed overnight. Sleeping this am. No c/o pain overnight) <Stella Luna - Last Filed: 07/24/23 08:19> Date of Service: 07/24/23 <Belkis Abraham C - Last Filed: 07/24/23 11:15> Review of Systems 10-point ROS is otherwise unremarkable Gastrointestinal: As per HPI <Stella Luna - Last Filed: 07/24/23 08:19> Physical Examination - Vital Signs Temperature: 97.9 F Blood Pressure: 96/66 Pulse: 76 Respirations: 15 Pulse Ox (%): 99 - Physical Exam General: In no apparent distress HEENT: Atraumatic, Normocephalic Respiratory: Normal air movement Cardiovascular: Regular rate/rhythm Capillary refill: <2 Seconds Gastrointestinal: Tenderness (LLQ, decreasing) Musculoskeletal: No clubbing, No swelling Integumentary: No rashes Neurological: Normal tone Lymphatics: No axilla or inguinal lymphadenopathy External genitalia: Deferred Rectal: Deferred <Stella Luna - Last Filed: 07/24/23 08:19> Assessment And Plan - Plan Assessment and Plan - Plan Assessment plan Abdominal pain Diverticulitis with abdominal abscess Dr. Sepulveda following, pt has been tolerating full liquid diet. IV Zosyn, IV Flagyl 07/22/23 WBC trending up to 13. Dr. Sepulveda in to see pt. Will repeat CT abd/pelvis with contrast. NPO 07/23/23 Dr. Sepulveda doing serial exams, NPO until he sees him every am 07/24/23 WBC decreasing 13.9 -> 13.3, Neutrophils 67.8%, but CRP 180 Diabetes uncontrolled Accu-Cheks, sliding scale insulin, Check A1c Diabetic education given to patient in room regarding diabetic diet, side effects of uncontrolled diabetes, diabetes complications, diabetes follow-up, educated on exercise recommendation Dietitian consult for diverticulitis, diabetic diet, NPO - 07/22 PPN started Social service consult for clinics based on reduced, income, no PCP Tobacco use Educated on tobacco Educated on tobacco cessation greater than 10 minutes Full code Diet n.p.o. DVT SCDs <Stella Luna - Last Filed: 07/24/23 08:19> - Plan Pt seen and examined. I agree with the note by the PRIMER SUPERVISOR. Will continue iv abx. Pt is NPO, continue PPN. Gen surgeon is following. Will assess daily for possible surgical intervention. Continue accuchek and SSI <Belkis Abraham - Last Filed: 07/24/23 11:15>
[2023-07-24] MEDS: INSULIN REGULAR (HUMAN) 100 UNIT/ML SQ SCH (12:00)
[2023-07-25 04:42] LABS: Absolute Basophils 0.1 K/uL (0-0.5); Absolute Eosinophils 0.4 K/uL (0-0.5); Absolute Lymphocytes (CBC) 2.1 K/uL (0.7-4.9); Absolute Monocytes 1.5 K/uL (0.1-1.3); Absolute Neutrophil 9.4 K/uL (1.8-8.0); Basophils % 0.7 % (0-1.3); Eosinophils % 3.3 % (0-4.4); Hematocrit 39.8 % (39.6-49.0); Hemoglobin 13.6 g/dL (13.6-17.9); Lymphocytes % 15.5 % (15.3-44.8); MCH 31.6 pg (27.0-35.0); MCHC 34.3 g/dL (32.0-36.0); MCV 92.2 fL (80-100); MPV 8.3 fL (7.6-11.3); Monocytes % 11.3 % (3.3-12.3); Neutrophils % 69.2 % (41.7-73.7); Nucleated Red Blood Cells % 0.1 % (0-0); Platelets 418 thou/uL (152-406); RBC Red Blood Cell Count 4.32 M/uL (4.33-5.43); Red Cell Distribution Width 12.7 % (12.1-15.2)
[2023-07-25 05:00] LABS: ALT/SGPT 18 U/L (16-61); Albumin 2.8 g/dL (3.4-5.0); Albumin/Globulin Ratio 0.7 (1.1-1.8); Alkaline Phosphatase 73 U/L (45-117); Anion Gap 9.8 mEq/L (5.0-15.0); BUN Blood Urea Nitrogen 11 mg/dL (7-18); Bicarbonate 26 mEq/L (21-32); Bilirubin Total 0.5 mg/dL (0.2-1.0); Globulin 4.3 g/dL (2.3-3.5); Glomerular Filtration Rate 131 ml/min (=/>90); Glucose Level 108 mg/dL (74-106); Potassium 3.8 mEq/L (3.5-5.1); Protein, Total 7.1 g/dL (6.4-8.2); Sodium Level 136 mEq/L (136-145)
[2023-07-25 05:12] LABS: AST/SGOT < 10 U/L (15-37)
--- NOTE | 2023-07-25 07:04 | P.PN ---
Subjective Date of Service: 07/25/23 Chief Complaint: Abdominal pain, abdominal abscess Admitted with abdominal pain was noted to have diverticulitis with abdominal abscess, patient is n.p.o., treated with IV antibiotics, PICC line placed for PPN, Repeat CT of the abdomen pelvis, to evaluate abscess, IV antibiotics changed to Levaquin, Flagyl, - Physical Exam General: In no apparent distress HEENT: Atraumatic, Normocephalic Respiratory: Normal air movement Cardiovascular: Regular rate/rhythm Capillary refill: <2 Seconds Gastrointestinal: Tenderness (LLQ, decreasing) Musculoskeletal: No clubbing, No swelling Integumentary: No rashes Neurological: Normal tone Lymphatics: No axilla or inguinal lymphadenopathy <Manda Jeong - Last Filed: 07/25/23 13:25> Date of Service: 08/17/23 <Sylvia Frausto - Last Filed: 08/17/23 16:50> Review of Systems Per HPI <Manda Jeong - Last Filed: 07/25/23 13:25> Physical Examination - Vital Signs Temperature: 98.1 F Blood Pressure: 98/60 Pulse: 82 Respirations: 18 Pulse Ox (%): 98 <Manda Jeong - Last Filed: 07/25/23 13:25> Assessment And Plan - Plan Assessment plan Abdominal pain Diverticulitis with abdominal abscess Surgery to eval, n.p.o. PPN placed for parenteral nutrition,07/22 PPN started IV Zosyn, IV Flagyl Dr. Sepulveda following, pt has been tolerating full liquid diet. IV Zosyn, IV Flagyl 07/22/23 WBC trending up to 13. Dr. Sepulveda in to see pt. Will repeat CT abd/pelvis with contrast. NPO 07/23/23 Dr. Sepulveda doing serial exams, NPO until he sees him every am 07/24/23 WBC decreasing 13.9 -> 13.3, Neutrophils 67.8%, but CRP 180 07/24 CT of the abdomen pelvis IMPRESSION: Abscess in the sigmoid mesocolon continues to slowly increase in size compared with 07/22/2023. No bowel obstruction. 07/24 IV antibiotics changed to Flagyl, Levaquin Diabetes uncontrolled Accu-Cheks, sliding scale insulin, Check A1c Diabetic education given to patient in room regarding diabetic diet, side effects of uncontrolled diabetes, diabetes complications, diabetes follow-up, educated on exercise recommendation Dietitian consult for diverticulitis, diabetic diet Social service consult for clinics based on reduced, income, no PCP Tobacco use Educated on tobacco Educated on tobacco cessation greater than 10 minutes Full code Diet n.p.o. DVT SCDs Disposition Home independent Discharge Plan: Home - Code Status/Comfort Care Code Status: Full Code Critical Care: No Time Spent Managing PTS Care (In Minutes): 35 <Manda Jeong - Last Filed: 07/25/23 13:25> History & Physical Patient Name: Medical Record Number: Date of : Patient Status: Attending Provider: Account Number: Date: Initialization Date: Patient History Date of Service: 08/09/23 Reason for eval: Headache History of Present Illness: Patient is a 42-year-old female comes in with headache. It has been going on all for the last few days. She has taken some Tylenol with no relief. She also took an old prescribed medication which she is unsure as to the we was but she did get some relief from the medication. She has been prescribed different medications in the past. in the ER she was given peer so with some relief. She has no neurologic complaints of paresthesias or weakness. She denies any nausea or vomiting. She does not have a headache of migraine. She has had some stressors , and she does drink caffeine quite frequently. No family hisory of aneurysms. 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 If she has any motor or sensory deficits she needs to return back to the ER. Plan to try a course of Fioricet to see if that alleviates her. Allergies No known drug allergies Medications metoprolol 25 mg b.i.d. Review of Systems 10-point ROS is otherwise unremarkable Physical Examination - Vital Signs reviewed - Physical Exam General: Alert, Oriented x3, HEENT: Atraumatic, Normocephalic Neck: Supple, 2+ carotid pulse no bruit Respiratory: Clear to auscultation bilaterally, Normal air movement Cardiovascular: Regular rate/rhythm, Normal S1 S2 Capillary refill: <2 Seconds Gastrointestinal: No rebound, Distended, Tenderness Musculoskeletal: No clubbing Integumentary: No rashes Neurological: Normal speech, Normal strength at 5/5 x4 extr; sensory deficits are negative; cranial nerves 2-12 intact Assessment and Plan - Problems (Diagnosis) (1) Tension headache Current Visit: Yes Status: Acute Plan: - minimize stress - short course of Fioricet; no driving while on fioricet - monitor blood pressure closely - slowly reduce caffeine intake - outpatient neurology follow-up if headache is persistent - if her symptoms worsen report back to the ER especially if having any neurologic symptoms of paresthesias or weakness or slurred speech. Discharge Plan: Home with Neurology and PCP follow-up; stress management - Advance Directives Does patient have a Living Will: Yes Does patient have a Durable POA for Healthcare: - Code Status/Comfort Care Code Status: Full Code Time Spent Managing Pts Care (In Minutes): 48 <Sylvia Frausto - Last Filed: 08/17/23 16:50>
--- NOTE | 2023-07-25 10:04 | RAD REPORT ---
EXAM DESCRIPTION: CTAbdomen Pelvis W Contrast - 07/25/2023 9:48 am CLINICAL HISTORY: eval progression of Abscess COMPARISON: Abdomen Pelvis W Contrast dated 07/22/2023; Abdomen Pelvis W Contrast dated 07/19/2023 TECHNIQUE: CT of the abdomen and pelvis was performed with IV contrast. All CT scans are performed using dose optimization technique as appropriate and may include automated exposure control or mA/KV adjustment according to patient size. FINDINGS: Lower chest: No acute abnormality. Liver: No acute abnormality or suspicious lesions. Biliary: No biliary ductal dilatation. Stomach: No significant focal abnormality. Duodenum: No significant focal abnormality. Pancreas: No significant abnormality. Spleen: No significant abnormality. Adrenal: No suspicious lesions. Kidney/ureter: No hydronephrosis. No renal calculi. Retroperitoneum: No retroperitoneal adenopathy. Vascular: No aneurysm. Bowel: Re- demonstrated wall thickening at the sigmoid colon with mesenteric edema.. Normal appendix. No bowel obstruction. Peritoneum: Enlarging fluid collection at the sigmoid mesocolon measuring 5.9 x 4.1 cm, previously 5. 4 x 4 cm. Bladder: Bladder wall thickening which is eccentric along the superior aspect along the point of cont act with the sigmoid mesocolon abscess. Reproductive: No adnexal masses. Bones: No acute fracture. Other: n/a IMPRESSION: Abscess in the sigmoid mesocolon continues to slowly increase in size compared with 06/29. No bowel obstruction.
--- NOTE | 2023-07-25 11:47 | P.CNS ---
Date of Consult: 07/25/23 Reason for Consult: abdominal abscess Chief Complaint: Abdominal pain, abdominal abscess History of Present Illness: "38-year-old male with a past medical history of diabetes, presents to the emergency room with abdominal pain. He reports abdominal pain started 3 days ago and has not been relieved. He reported chills, however he did not check the temperature yesterday. No reported nausea vomiting, no reported chest pain, he reports history of diabetes on metformin, he reports he does not check his sugars daily average blood sugars run 130s. He reports burning with urination, no reported chest pain, polyuria, polydipsia, dizziness, chest pain. Patient reports he does not have a PCP, will need social service consult for reduced clinics. Plan to admit for abdominal abscess, surgery to consult, laboratory evaluation mild hypokalemia 3.4, glucose 154, leukocytosis 13.10, started on Flagyl, Zosyn, UA glucose negative, trace ketones, trace hematuria, no leukocytosis CT of the abdomen pelvis, extensive mid colonic diverticulitis with an adjacent abscess." Allergies No Known Allergies Allergy (Unverified 07/19/23 05:34) Home medications list reviewed: Yes Home Medications: Metformin HCl [Glucophage] 500 mg PO BIDWM 07/19/23 - Past Medical/Surgical History -: Uncontrolled diabetes -: Acute diverticulitis June 2023 Psychosocial/ Personal History: , lives with spouse - Social History Smoking Status: Current some day smoker Alcohol use: No CD- Drugs: No Caffeine use: Yes Place of Residence: Home Physical Examination Temp Pulse Resp BP Pulse Ox 98.1 F 71 17 85/51 L 99 07/25/23 08:00 07/25/23 08:00 07/25/23 11:17 07/25/23 08:00 07/25/23 11:17 laboratory, imaging and microbiology data reviewed Conclusions/Impression: Problem List Diverticulitis with abdominal abscess Non-insulin dependent diabetes mellitus Tobacco use Obesity Diverticulitis Abdominal abscess - currently on Zosyn (started 07/18) - surgery Dr. Sepulveda following - blood cultures 07/20: no growth to date - CT abdomen pelvis 07/21: " More discretely marginated appearance of the diverticular abscess along the inferior wall of the sigmoid colon extending to the mural layers of the dome of the bladder. The abscess has increased in size, now measuring 5.3 cm in greatest dimension. Some thickening of the superior wall of the bladder compatible with adjacent cystitis as well." - CT abdomen pelvis 07/24: " Abscess in the sigmoid mesocolon continues to slowly increase in size compared with 07/22/2023. No bowel obstruction" Remains NPO. on TPN. Recommendations Antibiotic therapy x 2 weeks (07/18-07/31). Currently on Zosyn, continue for now. Worsening abscess, patient may require surgical intervention. Dr. Sepulveda general surgery following, see notes for further recommendations. - strict blood glucose control - pain management per primary team - continue supportive care case discussed with Cedric Rodriguez
--- NOTE | 2023-07-25 13:21 | P.PN ---
Subjective Date of Service: 07/25/23 Chief Complaint: Abdominal pain, abdominal abscess Patient continues to state he feels better he is voiding more easily today his pain is improving he has no fever or chills and feels less distended. He continues to pass gas. Physical Examination - Vital Signs Temperature: 98.1 F Blood Pressure: 85/51 Pulse: 71 Respirations: 17 Pulse Ox (%): 99 - Physical Exam General: Alert, In no apparent distress, Cooperative Respiratory: Clear to auscultation bilaterally, Normal air movement Cardiovascular: Regular rate/rhythm Gastrointestinal: Other (Soft mild tenderness to palpation in the suprapubic are a similar to previous exams no significant change in physical exam no peritoneal signs no tenderness in the remainder of the abdominal exam essentially pain is confined to the suprapubic region.) Assessment And Plan - Current Problems (Diagnosis) (1) Diverticular disease of intestine with perforation and abscess Current Visit: Yes Status: Acute Plan: - Continue Zosyn - Serial exams - Patient had leukocytosis -CT scan showed enlargement of his intra-abdominal abscess but no other changes significantly from previous CT scan. -At this time since patient has [address] scans which show enlargement of the fluid collection I have recommended interventional radiologic drainage of this collection. I have spoken with Dr. Luis M dukes the radiologist on-call who states that he believes he does not have crew available today to place the drain however he can place the drain tomorrow morning or pass to his partner Dr. Soto who may place the drain at that time. I have discussed the option of surgical intervention with the patient and the radiologist Dr. Dukes and I have discussed the case and there is no evidence of free perforation this appears to be abscess type material without any evidence of fecal contamination of the abdominal compartment. Given the patient's clinical picture and is relatively unremarkable abdominal exam with respect to all findings other than some mild suprapubic tenderness. We will place the to interventional radiology placed drain in the morning. If any discoloration and feculent fluid comes out I have discussed the patient may need surgical intervention at that time which would include an exploratory laparotomy likely colostomy creation washout any indicated procedures. Patient displayed understanding of this plan and asked to not have surgery and less there was no other option at this point and would like to proceed with radiologic drainage tomorrow rather than a surgical invention at this time. He therefore is refusing surgical intervention until after the drain is attempted tomorrow. I explained the risk-benefit alternatives of waiting till tomorrow for this procedure. I feel that is relatively low risk given his good clinical picture and the fact that he has no evidence of ongoing sepsis. He has a persistent leukocytosis but continues to ambulate feels well sits up in the bed walks around the room walks outside states his pain continues to improve and he only has mild issues with palpation to the suprapubic region he is voiding regularly continue to pass gas no nausea no vomiting or no other nonconcerning findings. - ambulate with assist - continue medical management per primary team - smoking cessation reviewed, diabetes management reviewed - reiterated the need for colonoscopy in future after resolution of symptoms - ID consultation pending.. -Return to ice chips only by mouth and start PPN for nutrition (2) Diabetes Current Visit: Yes Status: Acute
[2023-07-25] MEDS: Levofloxacin500mg IV 500 MG/100 ML BAG IV SCH (13:45)
[2023-07-25] MEDS: METRONIDAZOLE 500mg IVPB 500 MG/100 ML BAG IV SCH (13:49)
[2023-07-25] MEDS: AA 4.25 %/D5W/ELECTROLYTES 2,000 ML, Lipids 20% 250 ML with MULTIVITAMINS INJ 10 ML IV SCH (17:04)
[2023-07-26 05:38] LABS: Absolute Basophils 0.1 K/uL (0-0.5); Absolute Eosinophils 0.5 K/uL (0-0.5); Absolute Lymphocytes (CBC) 2.6 K/uL (0.7-4.9); Absolute Monocytes 1.5 K/uL (0.1-1.3); Absolute Neutrophil 7.1 K/uL (1.8-8.0); Basophils % 0.6 % (0-1.3); Eosinophils % 3.9 % (0-4.4); Hematocrit 41.1 % (39.6-49.0); Hemoglobin 13.7 g/dL (13.6-17.9); Lymphocytes % 22.1 % (15.3-44.8); MCH 30.7 pg (27.0-35.0); MCHC 33.3 g/dL (32.0-36.0); MCV 92.2 fL (80-100); MPV 8.2 fL (7.6-11.3); Monocytes % 12.5 % (3.3-12.3); Neutrophils % 60.9 % (41.7-73.7); Nucleated Red Blood Cells % 0.4 % (0-0); Platelets 431 thou/uL (152-406); RBC Red Blood Cell Count 4.46 M/uL (4.33-5.43); Red Cell Distribution Width 12.6 % (12.1-15.2)
[2023-07-26 05:52] LABS: Albumin 2.7 g/dL (3.4-5.0); Albumin/Globulin Ratio 0.6 (1.1-1.8); Anion Gap 9.7 mEq/L (5.0-15.0); Bilirubin Total 0.3 mg/dL (0.2-1.0); Globulin 4.6 g/dL (2.3-3.5); Magnesium 2.2 mg/dL (1.6-2.4); Potassium 3.7 mEq/L (3.5-5.1); Protein, Total 7.3 g/dL (6.4-8.2)
[2023-07-26] MEDS: KCL 20 MEQ/100 mL IVPB 20 MEQ/100 ML BAG IV SCH (06:19)
--- NOTE | 2023-07-26 09:11 | P.PN ---
Subjective Date of Service: 07/26/23 Chief Complaint: Abdominal pain, abdominal abscess Admitted with abdominal pain was noted to have diverticulitis with abdominal abscess, patient is n.p.o., treated with IV antibiotics, PICC line placed for PPN, Repeat CT of the abdomen pelvis, to evaluate abscess, IV antibiotics changed to Levaquin, Flagyl, Surgery consulted interventional radiology consulted to eval enlarging diverticular abscess Astorga inserted for possible bladder neck during interventional radiology procedure, UA - Physical Exam General: In no apparent distress HEENT: Atraumatic, Normocephalic Respiratory: Normal air movement Cardiovascular: Regular rate/rhythm Capillary refill: <2 Seconds Gastrointestinal: Tenderness (LLQ, decreasing) Musculoskeletal: No clubbing, No swelling Integumentary: No rashes Neurological: Normal tone Lymphatics: No axilla or inguinal lymphadenopathy Review of Systems per HPI Physical Examination - Vital Signs Temperature: 97.0 F Blood Pressure: 92/56 Pulse: 64 Respirations: 17 Pulse Ox (%): 99 Assessment And Plan - Plan Assessment plan Abdominal pain Diverticulitis with abdominal abscess Surgery to eval, n.p.o. PPN placed for parenteral nutrition,07/22 PPN started IV Zosyn, IV Flagyl Dr. Sepulveda following, pt has been tolerating full liquid diet. IV Zosyn, IV Flagyl 07/22/23 WBC trending up to 13. Dr. Sepulveda in to see pt. Will repeat CT abd/pel vis with contrast. NPO 07/23/23 Dr. Sepulveda doing serial exams, NPO until he sees him every am 07/24/23 WBC decreasing 13.9 -> 13.3, Neutrophils 67.8%, but CRP 180 07/24 CT of the abdomen pelvis IMPRESSION: Abscess in the sigmoid mesocolon continues to slowly increase in size compared with 07/22/2023. No bowel obstruction. 07/24 IV antibiotics changed to Flagyl, Levaquin 07/24 surgery consulted interventional radiology to evaluate enlarging diverticular abscess 07/25 Astorga inserted, UA ordered Diabetes uncontrolled Accu-Cheks, sliding scale insulin, Check A1c Diabetic education given to patient in room regarding diabetic diet, side effects of uncontrolled diabetes, diabetes complications, diabetes follow-up, educated on exercise recommendation Dietitian consult for diverticulitis, diabetic diet Social service consult for clinics based on reduced, income, no PCP Tobacco use Educated on tobacco Educated on tobacco cessation greater than 10 minutes Full code Diet n.p.o. DVT SCDs Disposition Home independent Discharge Plan: Home - Code Status/Comfort Care Code Status: Full Code Critical Care: No Time Spent Managing PTS Care (In Minutes): 35
[2023-07-26] MEDS: MIDAZOLAM HCL 2 MG/2 ML INJ ONE (10:35)
[2023-07-26] MEDS: FENTANYL CITR 100 MCG/2 ML ONE (10:36)
[2023-07-26] MEDS: NALOXONE HCL 2 MG/2 ML VIAL ONE (10:36)
[2023-07-26 10:55] LABS: PT Prothrombin Time 15.9 SECONDS (9.5-12.5); PTT, Activated Partial Thromb 43.1 SECONDS (24.3-36.9); Protime INR 1.46
[2023-07-26] MEDS: LIDOCAINE HCL/EPINEPHRINE 20 ML MDV ONE (13:17)
--- NOTE | 2023-07-26 14:50 | RAD REPORT ---
EXAM DESCRIPTION: CT - Guidance For Perc Drainage - 07/26/2023 2:18 pm CLINICAL HISTORY: Pelvic Abscess COMPARISON: Abdomen Pelvis W Contrast dated 07/25/2023; Abdomen Pelvis W Contrast dated 07/22/2023 FINDINGS: Preoperative diagnosis: Diverticular abscess. Post operative diagnosis: Same Conscious Sedation: A total of 200 microgram fentanyl and 1 milligram Versed said were administered i ntravenously. Total sedation time: 55 minutes. Patient was continuously monitored by nursing staff. Contrast used: 75 mL Isovue-300. Estimated blood loss: less than 5 mL Specimens: As below Informed consent was obtained following discussion with the relevant risks and benefits with the linnea ent, including risk of infection, bleeding, and injury to surrounding structures. Time-out procedure was performed. The patient was placed in a supine position on the table and the left lower quadrant a den was prepped and draped in the usual sterile fashion. 1% lidocaine was infiltrated into the subcut aneous tissues, as well as the deeper tissues for local anesthesia. Initial scanning demonstrated the known marginally enhancing diverticular abscess, which in patient thickening of the sigmoid colon an d left bladder dome lindsey. The abscess measured 5.6 x 3.6 cm. Under computed tomographic guidance, a 17 gauge introducer was advanced into the lesion. Subsequently, a 0.035 wire was introduced through t he needle into the collection cavity. There was difficulty withdrawing the needle [id number], and in exchange for a longer needle was performed. The wire was again introduced into the collection and upon passing the initial 10 gauge dilator, it was noted that the wire was advanced inadvertently into the bladder cavity. The wire was removed, and the 17 gauge needle was again utilized to aspirate as much of the collection content as possible. A total of 33 mL yellowish/green pus was obtained. Sample s were sent to the lab for analysis including cultures and sensitivity as ordered. The patient tolera colette the procedure with some pain. Vital signs were stable throughout. No drainage catheter was able t o be introduced given the technical difficulties mentioned above, and the case was discussed with Dr. Sepulveda. Postprocedure imaging demonstrated no complications. Samples were given to pathology for analysis. Th e patient was transferred to the recovery room in stable condition. IMPRESSION: Technically difficult CT-guided aspiration of a diverticular abscess as above. No draina ge catheter could be introduced. All CT scans are performed using dose optimization technique as appropriate and may include automated exposure control or mA/KV adjustment according to patient size.
[2023-07-26] MEDS: LIDOCAINE JELLY 2%- 5 ML TUBE TOP ONE (15:24)
[2023-07-26 16:06] LABS: Specific Gravity > 1.030 (1.005-1.030); Sqamous Epithelial <5 /HPF (None Seen); Urine Bacteria None Seen /HPF (<20); Urine Bilirubin NEGATIVE (Negative); Urine Blood 3+ (Negative); Urine Clarity Clear (Clear); Urine Color Light-Yellow (Yellow); Urine Culture Reflex Order NOT NEEDED; Urine Glucose NEGATIVE (Negative); Urine Ketones NEGATIVE (Negative); Urine Microscopic Reflex YN ORDER UMIC; Urine Nitrite NEGATIVE (Negative); Urine Protein 1+ (Negative); Urine RBC >50 /HPF (None Seen); Urine Urobilinogen Normal (Normal)
--- NOTE | 2023-07-26 16:48 | PN ---
Subjective: Patient lying in bed. No new acute event. Chart reviewed. Objective: Vital Signs: Temperature 97, pulse 64, respirations 17, blood pressure 92/56. Lungs: Basal crackles. Heart: S1, S2. Regular. Abdomen: Soft. Bowel sounds present. Lower abdominal tenderness noted. Laboratory Data: Shows WBC 11.7 down from 13.6, hemoglobin 13.7, platelets 431. Chemistry shows BUN of 9, creatinine 0.6. Micro data; cultures are negative. Currently, on Levaquin and Flagyl. Assessment And Plan: Diverticulitis and abdominal abscess. Continue antibiotic and supportive care. Repeat the scan after 4 weeks. Leukocytosis, improving. Continue to monitor for signs of infectio n. We will follow the patient as needed. NF/MODL Voice ID: [id number] Report ID: [id number]
[2023-07-26] MEDS: ONDANSETRON 4 MG/2 ML VIAL IV PRN (20:39)
[2023-07-27 04:34] LABS: Absolute Basophils 0.1 K/uL (0-0.5); Absolute Eosinophils 0.5 K/uL (0-0.5); Absolute Lymphocytes (CBC) 2.5 K/uL (0.7-4.9); Absolute Neutrophil 5.2 K/uL (1.8-8.0); Eosinophils % 5.1 % (0-4.4); Hematocrit 39.5 % (39.6-49.0); Hemoglobin 13.7 g/dL (13.6-17.9); Lymphocytes % 27.1 % (15.3-44.8); MCH 31.4 pg (27.0-35.0); MCHC 34.7 g/dL (32.0-36.0); MCV 90.6 fL (80-100); Monocytes % 11.2 % (3.3-12.3); Neutrophils % 55.6 % (41.7-73.7); Nucleated Red Blood Cells % 0.1 % (0-0); Platelets 422 thou/uL (152-406); RBC Red Blood Cell Count 4.35 M/uL (4.33-5.43); Red Cell Distribution Width 12.6 % (12.1-15.2)
[2023-07-27 04:49] LABS: Anion Gap 6.8 mEq/L (5.0-15.0); Magnesium 2.4 mg/dL (1.6-2.4); Potassium 3.8 mEq/L (3.5-5.1)
[2023-07-27 04:52] LABS: Specific Gravity 1.022 (1.005-1.030); Sqamous Epithelial None Seen /HPF (None Seen); Urine Bacteria 20-50 /HPF (<20); Urine Bilirubin NEGATIVE (Negative); Urine Blood 2+ (Negative); Urine Clarity Extremely Turbid (Clear); Urine Color Yellow (Yellow); Urine Culture Reflex Order REFLEXED; Urine Glucose NEGATIVE (Negative); Urine Ketones NEGATIVE (Negative); Urine Microscopic Reflex YN ORDER UMIC; Urine Mucus 1+ /HPF (None Seen); Urine Nitrite NEGATIVE (Negative); Urine Protein 1+ (Negative); Urine RBC 21-50 /HPF (None Seen); Urine Urobilinogen Normal (Normal); Urine WBC 20-50 /HPF (<5); Urine pH 6.5 (5.0-7.0)
--- NOTE | 2023-07-27 07:34 | P.PN ---
Subjective Date of Service: 07/28/23 Chief Complaint: Abdominal pain, abdominal abscess Admitted with abdominal pain was noted to have diverticulitis with abdominal abscess, patient is n.p.o., treated with IV antibiotics, PICC line placed for PPN, Repeat CT of the abdomen pelvis, to evaluate abscess, Surgery consulted interventional radiology consulted to eval enlarging diverticular abscess Astorga inserted for possible bladder neck during interventional radiology procedure, UA sent, UA turbid urine, IV fluid ordered, x 2 L, on Levaquin and Flagyl IV urology consulted - Physical Exam General: In no apparent distress HEENT: Atraumatic, Normocephalic Respiratory: Normal air movement Cardiovascular: Regular rate/rhythm Capillary refill: <2 Seconds Gastrointestinal: Tenderness (LLQ, decreasing) Musculoskeletal: No clubbing, No swelling Integumentary: No rashes Neurological: Normal tone Lymphatics: No axilla or inguinal lymphadenopathy Review of Systems Per HPI Physical Examination - Vital Signs Temperature: 98.0 F Blood Pressure: 100/64 Pulse: 70 Respirations: 16 Pulse Ox (%): 98 Assessment And Plan - Plan Assessment plan Abdominal pain Diverticulitis with abdominal abscess Surgery to eval, n.p.o. PPN placed for parenteral nutrition,07/22 PPN started IV Zosyn, IV Flagyl-changed to Levaquin, Flagyl Dr. Sepulveda following, pt has been tolerating full liquid diet. IV Zosyn, IV Flagyl 07/22/23 WBC trending up to 13. Dr. Sepulveda in to see pt. Will repeat CT abd/pelvis with contrast. NPO 07/23/23 Dr. Sepulveda doing serial exams, NPO until he sees him every am 07/24/23 WBC decreasing 13.9 -> 13.3, Neutrophils 67.8%, but CRP 180 07/24 CT of the abdomen pelvis IMPRESSION: Abscess in the sigmoid mesocolon continues to slowly increase in size compared with 07/22/2023. No bowel obstruction. 07/24 IV antibiotics changed to Flagyl, Levaquin 07/24 surgery consulted interventional radiology to evaluate enlarging diverticular abscess 07/25 Astorga inserted, UA ordered turbid urine, IV fluids x 2 L ordered, on Levaquin and Flagyl, urology consulted Diabetes uncontrolled Accu-Cheks, sliding scale insulin, Check A1c Diabetic education given to patient in room regarding diabetic diet, side effects of uncontrolled diabetes, diabetes complications, diabetes follow-up, educated on exercise recommendation Dietitian consult for diverticulitis, diabetic diet Social service consult for clinics based on reduced, income, no PCP Tobacco use Educated on tobacco Educated on tobacco cessation greater than 10 minutes Full code Diet n.p.o. DVT SCDs Disposition Home independent Discharge Plan: Home Time Spent Managing PTS Care (In Minutes): 35
[2023-07-27] MEDS: NA CHLORIDE 0.9% 1,000 ML IV SCH (08:00)
[2023-07-27] MEDS ORDERED: NA CHLORIDE 0.9% 1,000 ML IV SCH (08:00)
[2023-07-27] MEDS: Levofloxacin 750mg IV 750 MG/150 ML BAG IV SCH (13:13)
--- NOTE | 2023-07-27 16:14 | P.PN ---
Subjective Date of Service: 07/27/23 Chief Complaint: Abdominal pain, abdominal abscess Patient continues to state he feels better he is voiding more easily today his pain is improving he has no fever or chills and feels less distended. He continues to pass gas. Physical Examination - Vital Signs Temperature: 97.7 F Blood Pressure: 91/55 Pulse: 59 Respirations: 16 Pulse Ox (%): 99 - Physical Exam General: Alert, In no apparent distress, Oriented x3, Cooperative Respiratory: Clear to auscultation bilaterally, Normal air movement Cardiovascular: Regular rate/rhythm Gastrointestinal: Other (Soft mild left lower quadrant and suprapubic tenderness to palpation, improved from prior exam.) Urinary: Astorga catheter Assessment And Plan - Current Problems (Diagnosis) (1) Diverticular disease of intestine with perforation and abscess Current Visit: Yes Status: Acute Plan: - Continue Zosyn - Serial exams -Leukocytosis improved. Patient had interventional radiologic procedure yesterday whereby a needle drainage of abdominal/pelvic abscess was performed however there was evidence that there was wire passage through the bladder. -Patient appears significantly improved however urinalysis indicated some degree of contamination. -Given the above situation I have recommended a urology consultation with Dr. Chavez. Await his recommendations. -Astorga catheter has been placed in the interim. - ambulate with assist - continue medical management per primary team - smoking cessation reviewed, diabetes management reviewed - reiterated the need for colonoscopy in future after resolution of symptoms - ID consultation. -Return to ice chips only by mouth and start PPN for nutrition, will start nutrition after Dr. Chavez evaluation completed. (2) Diabetes Current Visit: Yes Status: Acute
--- NOTE | 2023-07-27 19:05 | P.CNS ---
Date of Consult: 07/27/23 Reason for Consult: Suspected bladder injury Requesting Physician: Marcel Sepulveda Chief Complaint: Abdominal pain, abdominal abscess History of Present Illness: 38-year-old gentleman with poorly controlled DM who presented via the emergency department with abdominal pain and dysuria. He was found to have a pelvic abscess associated with diverticulitis and was started on Zosyn and Flagyl and admitted 07/18/2022. 07/18/2022 WBC 13.1, UA micro 11-20 RBCs per hpf, negative nitrites, negative leukocyte Estrace CT abdomen pelvis with contrast impression: Extensive mid sigmoid colonic diverticulitis with an adjacent abscess measuring 4.2 cm. 07/25/2022 INR 1.46. 2:[address]-guided percutaneous drain attempted. 10 Venezuelan dilator used. Wire noted to be coiled within the bladder. Aspiration of collection performed but no drain placed. 3:30 PM UA micro 5-10 WBCs per hpf, negative nitrite/leukocyte Estrace, greater than 50 RBCs per hpf 07/26/2022 WBC 9.3, hemoglobin 13.7, platelets 422, creatinine 0.57, UA micro negative nitrites, positive leukocyte esterase, 20-50 WBCs per hpf, 21-50 RBCs per hpf Examination: Alert, awake, in no acute distress No dyspnea or sign of respiratory distress Comfortable and well-appearing Abdomen soft, nontender, nondistended, palpable left suprapubic nodular mass not significantly tender Urethral Astorga catheter in place draining clear yellow urine -I reviewed the images of the CT scans in detail, and the the abscess extending from the sigmoid diverticulum indeed was abutting and invaginating into the left posterior wall of the bladder near the dome Assessment and recommendation: 38-year-old gentleman with poorly controlled DM with sigmoid diverticular abscess abutting the bladder with dysuria on admission p attempted CT-guided percutaneous drain placement, dilated to 10 Venezuelan, 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 -Recommend the Astorga catheter be left in place and ideally, if any significant abscess collection present, attempted percutaneous drain placement into the abscess -I counseled the patient and his that he unfortunately is at high risk of development of a colovesical fistula which may ultimately require surgical repair. As he is likely 10 days or more into the inflammatory episode, this would be less than ideal time for operative exploration and management, and any management would likely be done in a delayed fashion months from now. Meanwhile, we will give him an opportunity to heal the fistula and resolve the abscess with antimicrobial therapy and the drain placement as above. If successful, perhaps he may stave off the need for further surgical therapy. -I provided the patient with my card and recommended follow-up upon discharge, likely between 3 to 6 weeks from now. Allergies No Known Allergies Allergy (Unverified 07/19/23 05:34) Home Medications: Metformin HCl [Glucophage] 500 mg PO BIDWM 07/19/23 - Past Medical/Surgical History Diabetic: Yes -: Uncontrolled diabetes -: Acute diverticulitis June 2023 Psychosocial/ Personal History: , lives with spouse - Social History Smoking Status: Current some day smoker Alcohol use: No CD- Drugs: No Caffeine use: Yes Place of Residence: Home Physical Examination Temp Pulse Resp BP Pulse Ox 97.7 F 59 16 91/55 L 99 07/27/23 16:14 07/27/23 16:14 07/27/23 16:14 07/27/23 16:14 07/27/23 16:14 - Problems (1) Colovesical fistula Current Visit: Yes Status: Acute (2) Diverticular disease of intestine with perforation and abscess Current Visit: Yes Status: Acute Conclusions/Impression: see HPI A&P Critical Care: No Time Spent Managing Pts care (In Minutes): 45
[2023-07-27] MEDS: MORPHINE 2 MG/ML SYR IV PRN (21:27)
[2023-07-28 04:09] LABS: Absolute Basophils 0.2 K/uL (0-0.5); Absolute Eosinophils 0.5 K/uL (0-0.5); Absolute Lymphocytes (CBC) 2.6 K/uL (0.7-4.9); Basophils % 1.7 % (0-1.3); Eosinophils % 5.9 % (0-4.4); Hematocrit 41.8 % (39.6-49.0); Hemoglobin 14.5 g/dL (13.6-17.9); Lymphocytes % 27.9 % (15.3-44.8); MCH 31.7 pg (27.0-35.0); MCHC 34.7 g/dL (32.0-36.0); MCV 91.2 fL (80-100); MPV 8.3 fL (7.6-11.3); Monocytes % 10.8 % (3.3-12.3); Neutrophils % 53.7 % (41.7-73.7); Nucleated Red Blood Cells % 0.1 % (0-0); Platelets 437 thou/uL (152-406); RBC Red Blood Cell Count 4.59 M/uL (4.33-5.43); Red Cell Distribution Width 12.6 % (12.1-15.2)
[2023-07-28 04:24] LABS: Anion Gap 5.3 mEq/L (5.0-15.0); Magnesium 2.4 mg/dL (1.6-2.4); Potassium 4.3 mEq/L (3.5-5.1)
--- NOTE | 2023-07-28 08:03 | P.PN ---
Subjective Date of Service: 07/28/23 Chief Complaint: Abdominal pain, abdominal abscess Admitted with abdominal pain was noted to have diverticulitis with abdominal abscess, patient is n.p.o., treated with IV antibiotics, PICC line placed for PPN, Repeat CT of the abdomen pelvis, to evaluate abscess, Surgery consulted interventional radiology consulted to eval enlarging diverticular abscess Magana inserted for possible bladder neck during interventional radiology procedure, UA sent, UA turbid urine, IV fluid ordered, x 2 L, on Levaquin and Flagyl IV Urology consulted, magana in place, patient will need to follow up with urology after discharge - Physical Exam General: In no apparent distress HEENT: Atraumatic, Normocephalic Respiratory: Normal air movement Cardiovascular: Regular rate/rhythm Capillary refill: <2 Seconds Gastrointestinal: Tenderness (LLQ, decreasing) Musculoskeletal: No clubbing, No swelling Integumentary: No rashes Neurological: Normal tone Lymphatics: No axilla or inguinal lymphadenopathy Review of Systems per HPI Physical Examination - Vital Signs Temperature: 98.0 F Blood Pressure: 100/64 Pulse: 70 Respirations: 16 Pulse Ox (%): 98 Assessment And Plan - Plan Assessment plan Abdominal pain Diverticulitis with abdominal abscess Surgery to eval, n.p.o. PPN placed for parenteral nutrition,07/22 PPN started IV Zosyn, IV Flagyl-changed to Levaquin, Flagyl Dr. Sepulveda following, pt has been tolerating full liquid diet. IV Zosyn, IV Flagyl 07/22/23 WBC trending up to 13. Dr. Sepulveda in to see pt. Will repeat CT abd/pelvis with contrast. NPO 07/23/23 Dr. Sepulveda doing serial exams, NPO until he sees him every am 07/24/23 WBC decreasing 13.9 -> 13.3, Neutrophils 67.8%, but CRP 180 07/24 CT of the abdomen pelvis IMPRESSION: Abscess in the sigmoid mesocolon continues to slowly increase in size compared with 07/22/2023. No bowel obstruction. 07/24 IV antibiotics changed to Flagyl, Levaquin 07/24 surgery consulted interventional radiology to evaluate enlarging diverticular abscess 07/25 Magana inserted, UA ordered turbid urine, IV fluids x 2 L ordered, on Levaquin and Flagyl Urology consulted, will need to follow up with urology after discharge, recommended follow-up upon discharge, likely between [address] Chavez Diabetes uncontrolled Accu-Cheks, sliding scale insulin, Check A1c Diabetic education given to patient in room regarding diabetic diet, side effects of uncontrolled diabetes, diabetes complications, diabetes follow-up, educated on exercise recommendation Dietitian consult for diverticulitis, diabetic diet Social service consult for clinics based on reduced, income, no PCP Tobacco use Educated on tobacco Educated on tobacco cessation greater than 10 minutes Full code Diet n.p.o. DVT SCDs Disposition Home independent Discharge Plan: Home Critical Care: No Time Spent Managing PTS Care (In Minutes): 35
--- NOTE | 2023-07-28 09:40 | RAD REPORT ---
EXAM DESCRIPTION: CT - Abdomen Pelvis W Contrast - 07/28/2023 8:47 am CLINICAL HISTORY: abscess COMPARISON: Abdomen Pelvis W Contrast dated 07/25/2023; Abdomen Pelvis W Contrast dated 07/22/2023 ; Abdomen Pelvis W Contrast dated 07/19/2023 TECHNIQUE: Thin cut axial CT imaging of the abdomen and pelvis was performed following intravenous a dministration of 100 mL Isovue 300. Multiplanar reformats were generated and reviewed. All CT scans are performed using dose optimization technique as appropriate and may include automated exposure control or mA/KV adjustment according to patient size. FINDINGS: No suspicious findings in the lung bases. The liver, spleen, adrenal glands, and pancreas show no suspicious findings. Gallbladder and biliary tree are also without suspicious finding. Symmetric renal function is seen with no hydronephrosis or suspicious renal mass. Demonstration lobulated marginally enhancing fluid collection extending from the adventitia of the si gmoid colon, correlate, towards the intramural bladder dome. Today, the collection measures 4.4 x 3.6 cm in greatest axial dimensions, previously measured up to 5.9 x 4.1 cm. Sigmoid diverticulosis. No dilated bowel loops or bowel wall thickening. No free air, free fluid or inflammatory stranding. No h ernia, mass or bulky lymphadenopathy. The urinary bladder is decompressed with Astorga catheter in plac e. Wall prominence seen throughout most of the bladder. No suspicious bony findings. IMPRESSION: Interval decrease in size of marginally enhancing diverticular abscess along the inferio r wall of the sigmoid colon, extending to the intramural layers of the bladder dome. Other findings a s above. .
[2023-07-28] MEDS: Meropenem 1,000 MG in NA CHLORIDE 0.9% 100 ML IV SCH (10:08)
[2023-07-28 15:56] LABS: Specific Gravity > 1.030 (1.005-1.030); Sqamous Epithelial <5 /HPF (None Seen); Urine Bacteria None Seen /HPF (<20); Urine Bilirubin NEGATIVE (Negative); Urine Blood Negative (Negative); Urine Clarity Clear (Clear); Urine Color Yellow (Yellow); Urine Crystals Unidentified Few /HPF (None Seen); Urine Culture Reflex Order NOT NEEDED; Urine Glucose NEGATIVE (Negative); Urine Ketones TRACE (Negative); Urine Microscopic Reflex YN ORDER UMIC; Urine Nitrite NEGATIVE (Negative); Urine Protein TRACE (Negative); Urine Urobilinogen Normal (Normal); Urine Yeast (Budding) Trace /HPF (None Seen); Urine pH 6.5 (5.0-7.0)
[2023-07-29] MEDS: MORPHINE 4 MG/ML SYR IV PRN (00:25)
[2023-07-29] MEDS ORDERED: D10W 250 ML IV PRN (00:45)
[2023-07-29] MEDS: DEXTROSE 10%-WATER 500 ML IV ONE (01:01)
[2023-07-29 03:52] LABS: Absolute Eosinophils 0.5 K/uL (0-0.5); Absolute Lymphocytes (CBC) 2.3 K/uL (0.7-4.9); Absolute Monocytes 1.1 K/uL (0.1-1.3); Absolute Neutrophil 5.4 K/uL (1.8-8.0); Basophils % 0.4 % (0-1.3); Eosinophils % 5.3 % (0-4.4); Hematocrit 44.1 % (39.6-49.0); Hemoglobin 15.2 g/dL (13.6-17.9); Lymphocytes % 24.9 % (15.3-44.8); MCH 31.6 pg (27.0-35.0); MCHC 34.6 g/dL (32.0-36.0); MCV 91.3 fL (80-100); MPV 8.1 fL (7.6-11.3); Monocytes % 12.1 % (3.3-12.3); Neutrophils % 57.3 % (41.7-73.7); Nucleated Red Blood Cells % 0.2 % (0-0); Platelets 467 thou/uL (152-406); RBC Red Blood Cell Count 4.83 M/uL (4.33-5.43); Red Cell Distribution Width 12.6 % (12.1-15.2)
[2023-07-29 04:03] LABS: Anion Gap 5.9 mEq/L (5.0-15.0); Magnesium 2.6 mg/dL (1.6-2.4); Potassium 3.9 mEq/L (3.5-5.1)
--- NOTE | 2023-07-29 07:29 | P.PN ---
Subjective Date of Service: 07/30/23 Chief Complaint: Abdominal pain, abdominal abscess Admitted with abdominal pain was noted to have diverticulitis with abdominal abscess, patient is n.p.o., treated with IV antibiotics, PICC line placed for PPN, Repeat CT of the abdomen pelvis, to evaluate abscess, Surgery consulted interventional radiology consulted to eval enlarging diverticular abscess Magana inserted for possible bladder neck during interventional radiology procedure, UA sent, UA turbid urine, IV fluid ordered, x 2 L, on Levaquin and Flagyl IV Urology consulted, magana in place, patient will need to follow up with urology after discharge RUE US r/o DVT IMPRESSION: Acute thrombus right basilic vein, will start AC - Physical Exam General: In no apparent distress HEENT: Atraumatic, Normocephalic Respiratory: Normal air movement Cardiovascular: Regular rate/rhythm Capillary refill: <2 Seconds Gastrointestinal: Tenderness (LLQ, decreasing) Musculoskeletal: No clubbing, No swelling Integumentary: No rashes Neurological: Normal tone Lymphatics: No axilla or inguinal lymphadenopathy Review of Systems Per HPI Physical Examination - Vital Signs Temperature: 97.4 F Blood Pressure: 110/61 Pulse: 60 Respirations: 18 Pulse Ox (%): 97 Assessment And Plan - Plan Assessment plan Abdominal pain Diverticulitis with abdominal abscess Surgery to eval, n.p.o. PPN placed for parenteral nutrition,07/22 PPN started IV Zosyn, IV Flagyl-changed to Levaquin, Flagyl Dr. Sepulveda following, pt has been tolerating full liquid diet. IV Zosyn, IV Flagyl 07/22/23 WBC trending up to 13. Dr. Sepulveda in to see pt. Will repeat CT abd/pelvis with contrast. NPO 07/23/23 Dr. Sepulveda doing serial exams, NPO until he sees him every am 07/24/23 WBC decreasing 13.9 -> 13.3, Neutrophils 67.8%, but CRP 180 07/24 CT of the abdomen pelvis IMPRESSION: Abscess in the sigmoid mesocolon continues to slowly increase in size compared with 07/22/2023. No bowel obstruction. 07/24 IV antibiotics changed to Flagyl, Levaquin 07/24 surgery consulted interventional radiology to evaluate enlarging diverticular abscess 07/25 Magana inserted, UA ordered turbid urine, IV fluids x 2 L ordered, on Levaquin and Flagyl Urology consulted, will need to follow up with urology after discharge, recommended follow-up upon discharge, likely between 3 [address] Chavez Acute thrombus right basilic vein RUE US r/o DVT IMPRESSION: Acute thrombus right basilic vein, will start AC Diabetes uncontrolled Accu-Cheks, sliding scale insulin, Check A1c Diabetic education given to patient in room regarding diabetic diet, side effects of uncontrolled diabetes, diabetes complications, diabetes follow-up, educated on exercise recommendation Dietitian consult for diverticulitis, diabetic diet Social service consult for clinics based on reduced, income, no PCP Tobacco use Educated on tobacco Educated on tobacco cessation greater than 10 minutes Full code Diet n.p.o. DVT SCDs Disposition Home independent Discharge Plan: Home Critical Care: No Time Spent Managing PTS Care (In Minutes): 35
--- NOTE | 2023-07-29 11:23 | RAD REPORT ---
EXAM DESCRIPTION: US - UPPER EXTREMITY VENOUS UNILATE - 07/29/2023 11:11 am CLINICAL HISTORY: Right upper extremity pain COMPARISON: None. FINDINGS: A PICC line is present echogenic material consistent with thrombus is present within the p roximal right basilic vein. The vein is not compressible. This is compatible with acute thrombus. The right internal jugular, subclavian, brachial, axillary, cephalic, radial and ulnar veins demonstr ate phasic signal. The veins are generally compressible. Doppler demonstrates good flow Grayscale, color and spectral analysis performed on all vessels IMPRESSION: Acute thrombus right basilic vein
--- NOTE | 2023-07-30 08:18 | P.PN ---
Subjective Date of Service: 07/30/23 Chief Complaint: Abdominal pain, abdominal abscess Admitted with abdominal pain was noted to have diverticulitis with abdominal abscess, patient is n.p.o., treated with IV antibiotics, PICC line placed for PPN, Repeat CT of the abdomen pelvis, to evaluate abscess, Surgery consulted interventional radiology consulted to eval enlarging diverticular abscess Magana inserted for possible bladder neck during interventional radiology procedure, UA sent, UA turbid urine, IV fluid ordered, x 2 L, on Levaquin and Flagyl IV Urology consulted, magana in place, patient will need to follow up with urology after discharge 07/28 RUE US r/o DVT IMPRESSION: Acute thrombus right basilic vein will start AC - Physical Exam General: In no apparent distress HEENT: Atraumatic, Normocephalic Respiratory: Normal air movement Cardiovascular: Regular rate/rhythm Capillary refill: <2 Seconds Gastrointestinal: Tenderness (LLQ, decreasing) Musculoskeletal: No clubbing, No swelling Integumentary: No rashes Neurological: Normal tone Lymphatics: No axilla or inguinal lymphadenopathy Review of Systems per HPI Physical Examination - Vital Signs Temperature: 97.1 F Blood Pressure: 102/59 Pulse: 58 Respirations: 18 Pulse Ox (%): 98 Assessment And Plan - Plan Assessment plan Abdominal pain Diverticulitis with abdominal abscess Surgery to eval, n.p.o. PPN placed for parenteral nutrition,07/22 PPN started IV Zosyn, IV Flagyl-changed to Levaquin, Flagyl Dr. Sepulveda following, pt has been tolerating full liquid diet. IV Zosyn, IV Flagyl 07/22/23 WBC trending up to 13. Dr. Sepulveda in to see pt. Will repeat CT abd/pelvis with contrast. NPO 07/23/23 Dr. Sepulveda doing serial exams, NPO until he sees him every am 07/24/23 WBC decreasing 13.9 -> 13.3, Neutrophils 67.8%, but CRP 180 07/24 CT of the abdomen pelvis IMPRESSION: Abscess in the sigmoid mesocolon continues to slowly increase in size compared with 07/22/2023. No bowel obstruction. 07/24 IV antibiotics changed to Flagyl, Levaquin 07/24 surgery consulted interventional radiology to evaluate enlarging diverticular abscess 07/25 Magana inserted, UA ordered turbid urine, IV fluids x 2 L ordered, on Leva rock and Flagyl Urology consulted, will need to follow up with urology after discharge, recommended follow-up upon discharge, likely between 3 to [address] Chavez Acute thrombus right basilic vein 07/28 RUE US r/o DVT IMPRESSION: Acute thrombus right basilic vein will start AC Diabetes uncontrolled Accu-Cheks, sliding scale insulin, Check A1c Diabetic education given to patient in room regarding diabetic diet, side effects of uncontrolled diabetes, diabetes complications, diabetes follow-up, educated on exercise recommendation Dietitian consult for diverticulitis, diabetic diet Social service consult for clinics based on reduced, income, no PCP Tobacco use Educated on tobacco Educated on tobacco cessation greater than 10 minutes Full code Diet n.p.o. DVT SCDs Disposition Home independent Critical Care: No Time Spent Managing PTS Care (In Minutes): 35
[2023-07-30] MEDS: ENOXAPARIN 100 MG/ML SYR SQ SCH (12:47)
--- NOTE | 2023-07-31 08:00 | P.PN ---
Subjective Date of Service: 07/31/23 Chief Complaint: Abdominal pain, abdominal abscess Admitted with abdominal pain was noted to have diverticulitis with abdominal abscess, patient is n.p.o., treated with IV antibiotics, PICC line placed for PPN, Repeat CT of the abdomen pelvis, to evaluate abscess, Surgery consulted interventional radiology consulted to eval enlarging diverticular abscess Magana inserted for possible bladder neck during interventional radiology procedure, UA sent, UA turbid urine, IV fluid ordered, x 2 L, on Levaquin and Flagyl IV Urology consulted, magana in place, patient will need to follow up with urology after discharge 07/28 RUE US r/o DVT IMPRESSION: Acute thrombus right basilic vein will start AC Plan to advance diet as tolerated today - Physical Exam General: In no apparent distress HEENT: Atraumatic, Normocephalic Respiratory: Normal air movement Cardiovascular: Regular rate/rhythm Capillary refill: <2 Seconds Gastrointestinal: Tenderness (LLQ, decreasing) Musculoskeletal: No clubbing, No swelling Integumentary: No rashes Neurological: Normal tone Lymphatics: No axilla or inguinal lymphadenopathy Review of Systems Per HPI Physical Examination - Vital Signs Temperature: 97.1 F Blood Pressure: 114/74 Pulse: 61 Respirations: 18 Pulse Ox (%): 97 Assessment And Plan - Plan Assessment plan Abdominal pain Diverticulitis with abdominal abscess Surgery to eval, n.p.o. PPN placed for parenteral nutrition,07/22 PPN started IV Zosyn, IV Flagyl-changed to Levaquin, Flagyl Dr. Sepulveda following, pt has been tolerating full liquid diet. IV Zosyn, IV Flagyl 07/22/23 WBC trending up to 13. Dr. Sepulveda in to see pt. Will repeat CT abd/pelvis with contrast. NPO 07/23/23 Dr. Sepulveda doing serial exams, NPO until he sees him every am 07/24/23 WBC decreasing 13.9 -> 13.3, Neutrophils 67.8%, but CRP 180 07/24 CT of the abdomen pelvis IMPRESSION: Abscess in the sigmoid mesocolon continues to slowly increase in size compared with 07/22/2023. No bowel obstruction. 07/24 IV antibiotics changed to Flagyl, Levaquin 07/24 surgery consulted interventional radiology to evaluate enlarging diverticular abscess 07/25 Magana inserted, UA ordered turbid urine, IV fluids x 2 L ordered, on Levaquin and Flagyl Urology consulted, will need to follow up with urology after discharge, recommended follow-up upon discharge, likely between 3 [address] Chavez 07/27 repeat CTMPRESSION: Interval decrease in size of marginally enhancing diverticular abscess along the inferior wall of the sigmoid colon, extending to the intramural layers of the bladder dome. Other findings as above. . 07/29 plan to advance diet to soft as tolerated Acute thrombus right basilic vein 07/28 RUE US r/o DVT IMPRESSION: Acute thrombus right basilic vein will start AC Diabetes uncontrolled Accu-Cheks, sliding scale insulin, Check A1c Diabetic education given to patient in room regarding diabetic diet, side effects of uncontrolled diabetes, diabetes complications, diabetes follow-up, educated on exercise recommendation Dietitian consult for diverticulitis, diabetic diet Social service consult for clinics based on reduced, income, no PCP Tobacco use Educated on tobacco Educated on tobacco cessation greater than 10 minutes Full code Diet n.p.o. DVT SCDs Disposition Home independent Discharge Plan: Home Critical Care: No Time Spent Managing PTS Care (In Minutes): 35
[2023-07-31 08:39] LABS: Anion Gap 6.1 mEq/L (5.0-15.0); Potassium 4.1 mEq/L (3.5-5.1)
[2023-07-31 10:20] LABS: Absolute Basophils 0.1 K/uL (0-0.5); Absolute Eosinophils 0.5 K/uL (0-0.5); Absolute Lymphocytes (CBC) 2.4 K/uL (0.7-4.9); Absolute Monocytes 0.8 K/uL (0.1-1.3); Absolute Neutrophil 4.7 K/uL (1.8-8.0); Basophils % 1.2 % (0-1.3); Eosinophils % 6.1 % (0-4.4); Hematocrit 44.1 % (39.6-49.0); Hemoglobin 15.1 g/dL (13.6-17.9); Lymphocytes % 28.5 % (15.3-44.8); MCH 31.5 pg (27.0-35.0); MCHC 34.2 g/dL (32.0-36.0); MCV 92.1 fL (80-100); Monocytes % 9.7 % (3.3-12.3); Neutrophils % 54.5 % (41.7-73.7); Platelets 453 thou/uL (152-406); RBC Red Blood Cell Count 4.79 M/uL (4.33-5.43); Red Cell Distribution Width 12.4 % (12.1-15.2)
[2023-08-01 05:15] LABS: Absolute Basophils 0.1 K/uL (0-0.5); Absolute Eosinophils 0.6 K/uL (0-0.5); Absolute Lymphocytes (CBC) 3.6 K/uL (0.7-4.9); Absolute Monocytes 0.9 K/uL (0.1-1.3); Absolute Neutrophil 4.2 K/uL (1.8-8.0); Basophils % 1.2 % (0-1.3); Eosinophils % 6.3 % (0-4.4); Hematocrit 42.5 % (39.6-49.0); Hemoglobin 14.3 g/dL (13.6-17.9); Lymphocytes % 38.7 % (15.3-44.8); MCH 30.7 pg (27.0-35.0); MCHC 33.7 g/dL (32.0-36.0); MCV 91.2 fL (80-100); Monocytes % 9.4 % (3.3-12.3); Neutrophils % 44.4 % (41.7-73.7); Platelets 459 thou/uL (152-406); RBC Red Blood Cell Count 4.67 M/uL (4.33-5.43); Red Cell Distribution Width 12.9 % (12.1-15.2)
[2023-08-01 05:25] LABS: Anion Gap 5.7 mEq/L (5.0-15.0); Potassium 3.7 mEq/L (3.5-5.1)
--- NOTE | 2023-08-01 10:50 | RAD REPORT ---
EXAM DESCRIPTION: CTAbdomen Pelvis W Contrast - 08/01/2023 10:30 am CLINICAL HISTORY: Abdominal pain. Intra-abdominal abscess COMPARISON: Abdomen Pelvis W Contrast dated 07/28/2023; Abdomen Pelvis W Contrast dated 07/25/2023 ; Abdomen Pelvis W Contrast dated 07/22/2023; Abdomen Pelvis W Contrast dated 07/19/2023 TECHNIQUE: Biphasic CT imaging of the abdomen and pelvis was performed with 100 ml non-ionic IV cont rast. All CT scans are performed using dose optimization technique as appropriate and may include automated exposure control or mA/KV adjustment according to patient size. FINDINGS: The lung bases are clear. The liver, spleen, pancreas, adrenal glands and kidneys are within normal limits. Lower abdominal abscess superior to the dome of the liver adjacent to mildly inflamed sigmoid colon h as mildly decreased in size since prior study and contains air collection on today's exam. The absces s wall is thinner and overall abscess size currently 4.2 x 3.2 cm. The appendix is normal. No evide nce of significant lymphadenopathy. No suspicious bony findings. IMPRESSION: The patient's known abscess in the pelvis adjacent to inflamed sigmoid colon shows mild improvement since comparative study.
[2023-08-01] MEDS: KCL 20 MEQ/100 mL IVPB 20 MEQ/100 ML BAG IV SCH (11:51)
--- NOTE | 2023-08-01 11:54 | P.PN ---
Subjective Date of Service: 08/01/23 Chief Complaint: Abdominal pain, abdominal abscess Subjective: Tolerating diet, Improving <Stella Lunalen - Last Filed: 08/01/23 11:50> Date of Service: 08/01/23 <Belkis Abraham Tressa - Last Filed: 08/01/23 13:03> Review of Systems 10-point ROS is otherwise unremarkable Gastrointestinal: As per HPI <CherylStella Driscoll - Last Filed: 08/01/23 11:50> Physical Examination - Vital Signs Temperature: 96.8 F Blood Pressure: 116/78 Pulse: 64 Respirations: 16 Pulse Ox (%): 98 - Physical Exam General: In no apparent distress HEENT: Atraumatic, Normocephalic Respiratory: Normal air movement Cardiovascular: No edema Capillary refill: <2 Seconds Gastrointestinal: Soft and benign Musculoskeletal: No clubbing Integumentary: No rashes Neurological: Normal speech, Normal tone Lymphatics: No axilla or inguinal lymphadenopathy Urinary: Astorga catheter External genitalia: Deferred Rectal: Deferred <LunaStella Driscoll - Last Filed: 08/01/23 11:50> Assessment And Plan - Plan Assessment and Plan - Plan Assessment plan Abdominal pain Diverticulitis with abdominal abscess Surgery to eval, n.p.o. PPN placed for parenteral nutrition,07/22 PPN started IV Zosyn, IV Flagyl-changed to Levaquin, Flagyl Dr. Sepulveda following, pt has been tolerating full liquid diet. IV Zosyn, IV Flagyl 07/22/23 WBC trending up to 13. Dr. Sepulveda in to see pt. Will repeat CT abd/pelvis with contrast. NPO 07/23/23 Dr. Sepulveda doing serial exams, NPO until he sees him every am 07/24/23 WBC decreasing 13.9 -> 13.3, Neutrophils 67.8%, but CRP 180 07/24 CT of the abdomen pelvis IMPRESSION: Abscess in the sigmoid mesocolon continues to slowly increase in size compared with 07/22/2023. No bowel ob struction. 07/24 IV antibiotics changed to Flagyl, Levaquin 07/24 surgery consulted interventional radiology to evaluate enlarging diverticular abscess 07/25 Astorga inserted, UA ordered turbid urine, IV fluids x 2 L ordered, on Levaquin and Flagyl Urology consulted, will need to follow up with urology after discharge, recommended follow-up upon discharge, likely between 3 [address] Chavez 07/27 repeat CTMPRESSION: Interval decrease in size of marginally enhancing diverticular abscess along the inferior wall of the sigmoid colon, extending to the intramural layers of the bladder dome. Other findings as above. . 07/29 plan to advance diet to soft as tolerated 07/31 continue diet as tolerated, repeat CT today IMPRESSION: "The patient's known abscess in the pelvis adjacent to inflamed sigmoid colon shows mild improvement since comparative study" Acute thrombus right basilic vein 07/28 RUE US r/o DVT IMPRESSION: Acute thrombus right basilic vein will start full dose lovenox and dc PICC Diabetes uncontrolled Accu-Cheks, sliding scale insulin, Check A1c Diabetic education given to patient in room regarding diabetic diet, side effects of uncontrolled diabetes, diabetes complications, diabetes follow-up, educated on exercise recommendation Dietitian consult for diverticulitis, diabetic diet Social service consult for clinics based on reduced, income, no PCP Tobacco use Educated on tobacco Educated on tobacco cessation greater than 10 minutes Full code Diet n.p.o. DVT SCDs <Stella Luna - Last Filed: 08/01/23 11:50> - Plan Pt seen and examined. I agree with the note by the [employer] CASE MANAGER. CT abd on 08/01/23 shows mild improvement in rere size of the diverticular abscess ( 4.2 x 3.2 cm). Will continue abx. Pt has bladder fistula. Will continue home med for other chronic medical problems. <Belkis Abraham - Last Filed: 08/01/23 13:03>
[2023-08-02 05:52] LABS: Absolute Basophils 0.1 K/uL (0-0.5); Absolute Eosinophils 0.5 K/uL (0-0.5); Absolute Lymphocytes (CBC) 3.1 K/uL (0.7-4.9); Absolute Monocytes 0.7 K/uL (0.1-1.3); Absolute Neutrophil 3.3 K/uL (1.8-8.0); Eosinophils % 7.2 % (0-4.4); Hematocrit 42.2 % (39.6-49.0); Hemoglobin 14.5 g/dL (13.6-17.9); Lymphocytes % 40.3 % (15.3-44.8); MCH 31.5 pg (27.0-35.0); MCHC 34.4 g/dL (32.0-36.0); MCV 91.6 fL (80-100); MPV 8.6 fL (7.6-11.3); Monocytes % 8.9 % (3.3-12.3); Neutrophils % 42.6 % (41.7-73.7); Nucleated Red Blood Cells % 0.1 % (0-0); Platelets 423 thou/uL (152-406); RBC Red Blood Cell Count 4.61 M/uL (4.33-5.43); Red Cell Distribution Width 12.8 % (12.1-15.2)
[2023-08-02 06:08] LABS: Anion Gap 7.8 mEq/L (5.0-15.0); Potassium 3.8 mEq/L (3.5-5.1)
--- NOTE | 2023-08-02 10:56 | P.PN ---
Subjective Date of Service: 08/02/23 Chief Complaint: Abdominal pain, abdominal abscess Subjective: Improving (no c/o overnight, tolerating po) <Stella Lunalen - Last Filed: 08/02/23 10:52> Date of Service: 08/02/23 <Belkis Abraham C - Last Filed: 08/02/23 12:31> Review of Systems 10-point ROS is otherwise unremarkable Gastrointestinal: As per HPI <Lexus Lunajason Driscoll - Last Filed: 08/02/23 10:52> Physical Examination - Vital Signs Temperature: 97.4 F Blood Pressure: 91/63 Pulse: 54 Respirations: 18 Pulse Ox (%): 99 - Physical Exam General: Alert, In no apparent distress, Oriented x3 HEENT: Atraumatic, Normocephalic Neck: Supple Respiratory: Normal air movement Cardiovascular: Normal pulses Capillary refill: <2 Seconds Gastrointestinal: Soft and benign Musculoskeletal: No clubbing, No swelling Integumentary: No rashes Neurological: Normal speech, Normal tone, Normal affect Lymphatics: No axilla or inguinal lymphadenopathy External genitalia: Deferred Rectal: Deferred <Lexus Lunajason Driscoll - Last Filed: 08/02/23 10:52> Assessment And Plan - Plan Assessment and Plan - Plan Assessment plan Abdominal pain Diverticulitis with abdominal abscess Surgery to eval, n.p.o. PPN placed for parenteral nutrition,07/22 PPN started IV Zosyn, IV Flagyl-changed to Levaquin, Flagyl Dr. Sepulveda following, pt has been tolerating full liquid diet. IV Zosyn, IV Flagyl 07/22/23 WBC trending up to 13. Dr. Sepulveda in to see pt. Will repeat CT abd/pelvis with contrast. NPO 07/23/23 Dr. Sepulveda doing serial exams, NPO until he sees him every am 07/24/23 WBC decreasing 13.9 -> 13.3, Neutrophils 67.8%, but CRP 180 07/24 CT of the abdomen pelvis IMPRESSION: Abscess in the sigmoid mesocolon continues to slowly increase in size compared with 07/22/2023. No bowel obstruction. 07/24 IV antibiotics changed to Flagyl, Levaquin 07/24 surgery consulted interventional radiology to evaluate enlarging diverticular abscess 07/25 Magana inserted, UA ordered turbid urine, IV fluids x 2 L ordered, on Levaquin and Flagyl Urology consulted, will need to follow up with urology after discharge, recommended follow-up upon discharge, likely between 3 [address] Chavez 07/27 repeat CTMPRESSION: Interval decrease in size of marginally enhancing diverticular abscess along the inferior wall of the sigmoid colon, extending to the intramural layers of the bladder dome. Other findings as above. . 07/29 plan to advance diet to soft as tolerated 07/31 continue diet as tolerated, repeat CT today IMPRESSION: "The patient's known abscess in the pelvis adjacent to inflamed sigmoid colon shows mild improvement since comparative study" 08/01 no c/o, tolerating po, magana to bsd, with clear yellow urine Acute thrombus right basilic vein 07/28 RUE US r/o DVT IMPRESSION: Acute thrombus right basilic vein will start full dose lovenox and dc PICC 08/01 PICC to left arm intact, no c/o pain or edema to either upper extremity Diabetes uncontrolled Accu-Cheks, sliding scale insulin, Check A1c Diabetic education given to patient in room regarding diabetic diet, side effects of uncontrolled diabetes, diabetes complications, diabetes follow-up, educated on exercise recommendation Dietitian consult for diverticulitis, diabetic diet Social service consult for clinics based on reduced, income, no PCP Tobacco use Educated on tobacco Educated on tobacco cessation greater than 10 minutes Full code Diet n.p.o. DVT SCDs <Stella Luna - Last Filed: 08/02/23 10:52> - Plan Pt seen and examined. I agree with the note by the [employer]. CT abd on 08/01/23 shows mild improvement in the size of the diverticular abscess ( 4.2 x 3.2 cm). Will continue abx. Pt has bladder fistula. Pt has clear urine in the magana bag. Will continue home med for other chronic medical problems. <Belkis Abraham - Last Filed: 08/02/23 12:31>
--- NOTE | 2023-08-02 12:25 | PN ---
Subjective: Patient lying in bed, getting meropenem. No other event. Objective: Vital Signs: Temperature of 98, pulse 60, respirations 18, blood pressure 91/63. Lungs: Basal crackles. Heart: S1, S2. Regular. Abdomen: Soft, nontender. Bowel sounds present. Extremity: No edema. Line: Left arm PICC line noted. Laboratory Data: Shows WBC 10.7, hemoglobin 14.5, platelet count 423, BUN of 9, creatinine 0.5. Assessment And Plan: Diverticulitis with abdominal abscess, currently on meropenem, acute thrombus t o the right basilic vein, diabetes mellitus, tobacco use. Continue supportive care and monitor for s igns of infection. We will follow the patient as needed. NF/MODL Voice ID: [id number] Report ID: [id number]
[2023-08-03 06:07] LABS: Absolute Basophils 0.1 K/uL (0-0.5); Absolute Eosinophils 0.6 K/uL (0-0.5); Absolute Lymphocytes (CBC) 3.2 K/uL (0.7-4.9); Absolute Monocytes 0.7 K/uL (0.1-1.3); Absolute Neutrophil 3.3 K/uL (1.8-8.0); Basophils % 1.2 % (0-1.3); Eosinophils % 7.1 % (0-4.4); Hematocrit 43.2 % (39.6-49.0); Hemoglobin 14.7 g/dL (13.6-17.9); Lymphocytes % 40.9 % (15.3-44.8); MCHC 33.9 g/dL (32.0-36.0); MCV 91.4 fL (80-100); MPV 8.5 fL (7.6-11.3); Monocytes % 9.2 % (3.3-12.3); Neutrophils % 41.6 % (41.7-73.7); Nucleated Red Blood Cells % 0.2 % (0-0); Platelets 427 thou/uL (152-406); RBC Red Blood Cell Count 4.73 M/uL (4.33-5.43); Red Cell Distribution Width 12.6 % (12.1-15.2)
[2023-08-03 06:19] LABS: Anion Gap 4.9 mEq/L (5.0-15.0); Potassium 3.9 mEq/L (3.5-5.1)
[2023-08-03] MEDS ORDERED: INSULIN GLARGINE 100 UNIT/ML SQ SCH (09:00)
--- NOTE | 2023-08-03 12:44 | P.PN ---
Subjective Date of Service: 08/03/23 Chief Complaint: Abdominal pain, abdominal abscess Pt is resting comfortably in bed. Pt reports slight low abdominal pain. WBC is 7.8 and his urine sample is not turbid. Magana catheter is in place. Repeat CT abd shows decrease in the size of abscess. He tolerating po intake well. No other complaints. Review of Systems General: Unremarkable Eyes: Unremarkable ENT: Unremarkable Respiratory: Unremarkable Cardiovascular: Unremarkable Gastrointestinal: Unremarkable Genitourinary: Unremarkable Musculoskeletal: Unremarkable Integumentary: Unremarkable Neurological: Unremarkable Lymphatics: Unremarkable Physical Examination - Vital Signs Temperature: 97.3 F Blood Pressure: 100/66 Pulse: 55 Respirations: 16 Pulse Ox (%): 96 - Physical Exam General: Alert, In no apparent distress, Oriented x3 HEENT: Atraumatic, Normocephalic, PERRLA Neck: Supple, 2+ carotid pulse no bruit, JVD not distended Respiratory: Clear to auscultation bilaterally, Normal air movement Cardiovascular: No edema, Normal pulses, Regular rate/rhythm, Normal S1 S2 Capillary refill: <2 Seconds Gastrointestinal: Normal bowel sounds, Soft and benign, Non-distended, Tenderness Musculoskeletal: No clubbing, No swelling, No contractures Integumentary: No rashes, No breakdown, No significant lesion, No tenderness/swelling Neurological: Normal speech, Normal strength at 5/5 x4 extr, Normal tone, Sensation intact Lymphatics: No axilla or inguinal lymphadenopathy Assessment And Plan - Plan Abdominal pain / Diverticulitis with abdominal abscess Surgery to eval, n.p.o. PPN placed for parenteral nutrition,07/22 PPN started IV Zosyn, IV Flagyl-changed to Levaquin, Flagyl Dr. Sepulveda following, pt has been tolerating full liquid diet. IV Zosyn, IV Flagyl 07/22/23 WBC trending up to 13. Dr. Sepulveda in to see pt. Will repeat CT abd/pelvis with contrast. NPO 07/23/23 Dr. Sepulveda doing serial exams, NPO until he sees him every am 07/24/23 WBC decreasing 13.9 -> 13.3, Neutrophils 67.8%, but CRP 180 07/24 CT of the abdomen pelvis IMPRESSION: Abscess in the sigmoid mesocolon continues to slowly increase in size compared with 07/22/2023. No bowel obstruction. 07/24 IV antibiotics changed to Flagyl, Levaquin 07/24 surgery consulted interventional radiology to evaluate enlarging diverticular abscess 07/25 Magana inserted, UA ordered turbid urine, IV fluids x 2 L ordered, on Levaquin and Flagyl Urology consulted, will need to follow up with urology after discharge, recommended follow-up upon discharge, likely between 3 [address] Chavez 07/27 repeat CTMPRESSION: Interval decrease in size of marginally enhancing diverticular abscess along the inferior wall of the sigmoid colon, extending to the intramural layers of the bladder dome. Other findings as above. . 07/29 plan to advance diet to soft as tolerated 07/31 continue diet as tolerated, repeat CT today IMPRESSION: "The patient's known abscess in the pelvis adjacent to inflamed sigmoid colon shows mild improvement since comparative study" 08/01 no c/o, tolerating po, magana to bsd, with clear yellow urine 08/02 Pt denies any complaints. He has slight abdominal pain. He has a magana catheter in place. No puss in the urine. Acute thrombus right basilic vein 07/28 RUE US r/o DVT IMPRESSION: Acute thrombus right basilic vein will start full dose lovenox and dc PICC 08/01 PICC to left arm intact, no c/o pain or edema to either upper extremity Diabetes uncontrolled: Will continue accuchek, SSI and ADA diet. Pt had DM education and he was encouraged to exercise. Tobacco use: Pt was advised to quit smoking. DVT ppx: SCD Code: full
--- NOTE | 2023-08-03 14:33 | P.PN ---
Subjective Date of Service: 08/03/23 Chief Complaint: Abdominal pain, abdominal abscess Subjective: Improving Physical Examination - Vital Signs Temperature: 97.3 F Blood Pressure: 100/66 Pulse: 55 Respirations: 16 Pulse Ox (%): 96 Assessment And Plan - Plan Assessment and Plan - Plan Assessment plan Abdominal pain Diverticulitis with abdominal abscess Surgery to eval, n.p.o. PPN placed for parenteral nutrition,07/22 PPN started IV Zosyn, IV Flagyl-changed to Levaquin, Flagyl Dr. Sepulveda following, pt has been tolerating full liquid diet. IV Zosyn, IV Flagyl 07/22/23 WBC trending up to 13. Dr. Sepulveda in to see pt. Will repeat CT ab d/pelvis with contrast. NPO 07/23/23 Dr. Sepulveda doing serial exams, NPO until he sees him every am 07/24/23 WBC decreasing 13.9 -> 13.3, Neutrophils 67.8%, but CRP 180 07/24 CT of the abdomen pelvis IMPRESSION: Abscess in the sigmoid mesocolon continues to slowly increase in size compared with 07/22/2023. No bowel obstruction. 07/24 IV antibiotics changed to Flagyl, Levaquin 07/24 surgery consulted interventional radiology to evaluate enlarging diverticular abscess 07/25 Magana inserted, UA ordered turbid urine, IV fluids x 2 L ordered, on Levaquin and Flagyl Urology consulted, will need to follow up with urology after discharge, recommended follow-up upon discharge, likely between 3 [address] Chavez 07/27 repeat CTMPRESSION: Interval decrease in size of marginally enhancing diverticular abscess along the inferior wall of the sigmoid colon, extending to the intramural layers of the bladder dome. Other findings as above. . 07/29 plan to advance diet to soft as tolerated 07/31 continue diet as tolerated, repeat CT today IMPRESSION: "The patient's known abscess in the pelvis adjacent to inflamed sigmoid colon shows mild improvement since comparative study" 08/01 no c/o, tolerating po, magana to bsd, with clear yellow urine Acute thrombus right basilic vein 07/28 RUE US r/o DVT IMPRESSION: Acute thrombus right basilic vein will start full dose lovenox and dc PICC 08/01 PICC to left arm intact, no c/o pain or edema to either upper extremity Diabetes uncontrolled Accu-Cheks, sliding scale insulin, Check A1c Diabetic education given to patient in room regarding diabetic diet, side effects of uncontrolled diabetes, diabetes complications, diabetes follow-up, ed ucated on exercise recommendation Dietitian consult for diverticulitis, diabetic diet Social service consult for clinics based on reduced, income, no PCP Tobacco use Educated on tobacco Educated on tobacco cessation greater than 10 minutes Full code Diet n.p.o. DVT SCDs
--- NOTE | 2023-08-03 16:46 | RAD REPORT ---
EXAM DESCRIPTION: CT - Chest Abdomen Pelvis W Cont - 08/03/2023 4:33 pm CLINICAL HISTORY: Chest and abdomen pain. Please give contrast per rectume. Urology wants COMPARISON: Abdomen Pelvis W Contrast dated 08/01/2023 TECHNIQUE: Approximately 100 mL nonionic IV contrast was administered to the patient. All CT scans are performed using dose optimization technique as appropriate and may include automated exposure control or mA/KV adjustment according to patient size. FINDINGS: The lungs are clear.No pleural or pericardial effusion.No intrathoracic adenopathy. The liver, spleen, pancreas, adrenal glands and kidneys are within normal limits. Contrast was infused via rectum. There is an 8.3 cm segment of the sigmoid colon where numerous diver ticula are present. 5.0 x 3.7 cm peridiverticular abscess. There is a very slight amount of contrast urinary bladder dependently. No worrisome osseous finding. IMPRESSION: A very minimal amount of contrast is seen layering dependently in the bladder. This coul d be result of a minimal fistula. There is an 8.3 cm segment of colon with numerous diverticula are present along with a 5 cm peridiver ticular abscess.
[2023-08-03] MEDS: Ringers Lactate 1,000 ML IV SCH (21:50)
[2023-08-04 03:54] LABS: Absolute Basophils 0.1 K/uL (0-0.5); Absolute Eosinophils 0.5 K/uL (0-0.5); Absolute Monocytes 0.8 K/uL (0.1-1.3); Absolute Neutrophil 3.9 K/uL (1.8-8.0); Basophils % 1.2 % (0-1.3); Hematocrit 42.3 % (39.6-49.0); Hemoglobin 14.7 g/dL (13.6-17.9); Lymphocytes % 36.6 % (15.3-44.8); MCH 31.6 pg (27.0-35.0); MCHC 34.8 g/dL (32.0-36.0); MCV 90.9 fL (80-100); MPV 8.5 fL (7.6-11.3); Monocytes % 9.4 % (3.3-12.3); Neutrophils % 46.8 % (41.7-73.7); Nucleated Red Blood Cells % 0.2 % (0-0); Platelets 400 thou/uL (152-406); RBC Red Blood Cell Count 4.65 M/uL (4.33-5.43); Red Cell Distribution Width 12.8 % (12.1-15.2)
[2023-08-04 04:13] LABS: Anion Gap 4.2 mEq/L (5.0-15.0); Potassium 4.2 mEq/L (3.5-5.1)
--- NOTE | 2023-08-04 10:26 | P.PN ---
Subjective Date of Service: 08/04/23 Chief Complaint: Abdominal pain, abdominal abscess Pt is resting comfortably in bed. Pt reports slight low abdominal pain. WBC is 8.3<- 7.8 and his urine sample is not turbid. Magana catheter is in place. Repeat CT abd shows decrease in the size of abscess. Retal contrast CT abd/pelvis shows presence of contrast in the bladder with 5cm diverticular abscess. Pt will be transferred to a [facility] for IR intervention. He tolerating po intake well. No other complaints. Review of Systems General: Unremarkable Eyes: Unremarkable ENT: Unremarkable Respiratory: Unremarkable Cardiovascular: Unremarkable Gastrointestinal: Abdominal Pain Genitourinary: Unremarkable Musculoskeletal: Unremarkable Integumentary: Unremarkable Neurological: Unremarkable Lymphatics: Unremarkable Physical Examination - Vital Signs Temperature: 96.9 F Blood Pressure: 92/51 Pulse: 60 Respirations: 18 Pulse Ox (%): 98 - Physical Exam General: Alert, In no apparent distress, Oriented x3 HEENT: Atraumatic, Normocephalic, PERRLA Neck: Supple, 2+ carotid pulse no bruit, JVD not distended Respiratory: Clear to auscultation bilaterally, Normal air movement Cardiovascular: No edema, Normal pulses, Regular rate/rhythm, Normal S1 S2 Capillary refill: <2 Seconds Gastrointestinal: Normal bowel sounds, Soft and benign, Non-distended Musculoskeletal: No clubbing, No swelling, No contractures Integumentary: No rashes, No breakdown, No significant lesion, No tenderness/swelling Neurological: Normal speech, Normal strength at 5/5 x4 extr, Normal tone, Sensation intact Lymphatics: No axilla or inguinal lymphadenopathy Assessment And Plan - Plan Abdominal pain / Diverticulitis with abdominal abscess Surgery to eval, n.p.o. PPN placed for parenteral nutrition,07/22 PPN started IV Zosyn, IV Flagyl-changed to Levaquin, Flagyl Dr. Sepulveda following, pt has been tolerating full liquid diet. IV Zosyn, IV Flagyl 07/22/23 WBC trending up to 13. Dr. Sepulveda in to see pt. Will repeat CT abd/pelvis with contrast. NPO 07/23/23 Dr. Sepulveda doing serial exams, NPO until he sees him every am 07/24/23 WBC decreasing 13.9 -> 13.3, Neutrophils 67.8%, but CRP 180 07/24 CT of the abdomen pelvis IMPRESSION: Abscess in the sigmoid mesocolon continues to slowly increase in size compared with 07/22/2023. No bowel obst ruction. 07/24 IV antibiotics changed to Flagyl, Levaquin 07/24 surgery consulted interventional radiology to evaluate enlarging diverticular abscess 07/25 Magana inserted, UA ordered turbid urine, IV fluids x 2 L ordered, on Levaquin and Flagyl Urology consulted, will need to follow up with urology after discharge, recommended follow-up upon discharge, likely between 3 [address] Chavez 07/27 repeat CTMPRESSION: Interval decrease in size of marginally enhancing diverticular abscess along the inferior wall of the sigmoid colon, extending to the intramural layers of the bladder dome. Other findings as above. . 07/29 plan to advance diet to soft as tolerated 07/31 continue diet as tolerated, repeat CT today IMPRESSION: "The patient's known abscess in the pelvis adjacent to inflamed sigmoid colon shows mild improvement since comparative study" 08/01 no c/o, tolerating po, magana to bsd, with clear yellow urine 08/02 Pt denies any complaints. He has slight abdominal pain. He has a magana catheter in place. No puss in the urine. Repeat CT abd/pelvis with rectal contrast shows A very minimal amount of contrast is seen layering dependently in the bladder. This could be result of a minimal fistula. There is an 8.3 cm segment of colon with numerous diverticula are present along with a 5 cm peridiverticular abscess. Will transfer pt to [facility] for IR drainage of the abscess. Acute thrombus right basilic vein 07/28 RUE US r/o DVT IMPRESSION: Acute thrombus right basilic vein will start full dose lovenox and dc PICC 08/01 PICC to left arm intact, no c/o pain or edema to either upper extremity Diabetes uncontrolled: Will continue accuchek, SSI and ADA diet. Pt had DM education and he was encouraged to exercise. Tobacco use: Pt was advised to quit smoking. DVT ppx: SCD Code: full
[2023-08-04 10:56] LABS: Sqamous Epithelial None Seen /HPF (None Seen); Urine Bacteria <20 /HPF (<20); Urine Culture Reflex Order NOT NEEDED; Urine Mucus Slight /HPF (None Seen); Urine RBC <5 /HPF (None Seen); Urine WBC <5 /HPF (<5); Urine WBC Clump Rare /HPF (None Seen)
[2023-08-04 11:14] LABS: Specific Gravity 1.026 (1.005-1.030); Urine Bilirubin NEGATIVE (Negative); Urine Blood Negative (Negative); Urine Clarity Clear (Clear); Urine Color Yellow (Yellow); Urine Glucose NEGATIVE (Negative); Urine Ketones NEGATIVE (Negative); Urine Micro Reflex YN NO BILL NO MICROSCOPIC; Urine Nitrite NEGATIVE (Negative); Urine Protein TRACE (Negative); Urine Urobilinogen Normal (Normal); Urine pH 6.5 (5.0-7.0)
--- NOTE | 2023-08-04 13:45 | P.DS ---
Admission Date: 07/20/23 Discharge Date: 08/04/23 Disposition: TRANSFER TO [facility] Discharge Condition: GOOD Reason for Admission: Abdominal pain, abdominal abscess Brief History of Present Illness: 38-year-old male with a past medical history of diabetes, presents to the emergency room with abdominal pain. He reports abdominal pain started 3 days ago and has not been relieved. He reported chills, however he did not check the temperature yesterday. No reported nausea vomiting, no reported chest pain, he reports history of diabetes on metformin, he reports he does not check his sugars daily average blood sugars run 130s. He reports burning with urination, no reported chest pain, polyuria, polydipsia, dizziness, chest pain. Patient reports he does not have a PCP, will need social service consult for reduced clinics. Plan to admit for abdominal abscess, surgery to consult, laboratory evaluation mild hypokalemia 3.4, glucose 154, leukocytosis 13.10, started on Flagyl, Zosyn, UA glucose negative, trace ketones, trace hematuria, no leukocytosis CT of the abdomen pelvis, extensive mid colonic diverticulitis with an adjacent abscess. Patient kept n.p.o. for surgery to [facility] Course: Pt is a 38 yo male with past medcial history of DM II and tobacco abuse who presented with abdominal pain and chills. On admission, laboratory evaluation showed mild hypokalemia 3.4, glucose 154, leukocytosis 13.10, started on Flagyl, Zosyn, UA glucose negative, trace ketones, trace hematuria, no leukocytosis CT of the abdomen/pelvis showed extensive mid colonic diverticulitis with an adj acent abscess. We kept pt n.p.o for surgery to [facility] [place] and started iv zosyna nd flagyl. It was later changed to levaquinand flagyl but the repeat CT abd/pelvis did not show reduction in the size of the diverticular abscess. CT of the abdomen pelvis on 07/25/23 showed an abscess in the sigmoid mesocolon which continued to slowly increase in size compared with 07/22/2023. No bowel obstruction. We consulted IR to drain the abscess but it was not successful. 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 We placed magana catheter while we continue iv abx. repeat CT abd /pelvis showed reduction in the size of the diverticular abscess. The culture grew ESBL E. coli and we switched abx to merrem. Pt remained hemodynamically stable. Repeat CT abd/pelvis with rectal contrast to confirm closure of the colovesical fistula showed a very minimal amount of contrast is seen layering dependently in the bladder. This could be result of a minimal fistula. There was an 8.3 cm segment of colon with numerous diverticula are present along with a 5 cm peridiverticular abscess. The medical team recommended transfer to another facility for IR drainage of the diverticular abscess. He also developed acute thrombus right basilic vein. We gave him lovenox. We also continued home meds for other chronic medical problems. Pt was in NAD prior to transfer. Vital Signs/Physical Exam: Temp Pulse Resp BP Pulse Ox 97.9 F 54 21 H 90/56 L 97 08/04/23 12:00 08/04/23 12:00 08/04/23 12:00 08/04/23 12:00 08/04/23 12:00 Laboratory Data at Discharge: WBC 8.30 thou/uL (4.3-10.9) 08/04/23 03:34 Hgb 14.7 g/dL (13.6-17.9) 08/04/23 03:34 Hct 42.3 % (39.6-49.0) 08/04/23 03:34 Plt Count 400 thou/uL (152-406) 08/04/23 03:34 PT 15.9 SECONDS (9.5-12.5) H 07/26/23 10:31 INR 1.46 07/26/23 10:31 APTT 43.1 SECONDS (24.3-36.9) H 07/26/23 10:31 Sodium 136 mEq/L (136-145) 08/04/23 03:34 Potassium 4.2 mEq/L (3.5-5.1) 08/04/23 03:34 BUN 12 mg/dL (7-18) 08/04/23 03:34 Creatinine 0.58 mg/dL (0.70-1.30) L 08/04/23 03:34 Glucose 86 mg/dL (74-106) 08/04/23 03:34 Phosphorus 3.6 mg/dL (2.5-4.9) 07/23/23 03:25 Magnesium 2.6 mg/dL (1.6-2.4) H 07/29/23 03:38 Total Bilirubin 0.3 mg/dL (0.2-1.0) 07/26/23 05:07 AST 13 U/L (15-37) L 07/26/23 05:07 ALT 19 U/L (16-61) 07/26/23 05:07 Alkaline Phosphatase 64 U/L (45-117) 07/26/23 05:07 Lipase 17 U/L (13-75) 07/19/23 00:45 Home Medications: Metformin HCl [Glucophage] 500 mg PO BIDWM 07/19/23 Followup: NONE,NONE [Primary Care Provider] -
--- NOTE | 2023-08-04 17:27 | PN ---
Subjective: The patient is lying in bed. No new acute event. CT scan done yesterday showed minimal amount of contrast segment of colon and numerous diverticula are present along with 5 cm peridiverticular abscess. Objective: Vital Signs: Reviewed. Lungs: Basal crackles. Heart: S1, S2. Regular. Abdomen: Soft, nontender. Bowel sounds present. Extremities: No edema. Medication: Continue meropenem. Assessment/plan: Status post diverticulitis and abdominal abscess, currently on meropenem. The CT s can report shows 5 cm abscess. Consider adding Flagyl to current treatment. Continue antibiotic and supportive care. Also, monitor for signs of infection. NF/MODL Voice ID: [id number] Report ID: [id number]
[2023-08-08 07:31] VITALS: BP 114/74; TEMP 97.1
== END 2023-08-04 21:19 | disposition short-term general hospital (02) | DRG 392 ==
LOC: ER 23:51 → ERHOLD 07-19 04:49 → 2ND 07-19 07:31 → OBSVTOIN 07-20 15:51
PROVIDERS: ADMIT Hospitalist; ATTEND Hospitalist
PROC: BW201ZZ Computerized Tomography (CT Scan) of Abdomen using Low Osmolar Contrast (ICD-10-PCS; 2023-07-20)
PROC: 02HV33Z Insertion of Infusion Device into Superior Vena Cava, Percutaneous Approach (ICD-10-PCS; principal; 2023-07-23)
PROC: 3E0436Z Introduction of Nutritional Substance into Central Vein, Percutaneous Approach (ICD-10-PCS; 2023-07-23)
PROC: 0T9B70Z Drainage of Bladder with Drainage Device, Via Natural or Artificial Opening (ICD-10-PCS; 2023-07-26)
DX: K57.20 Diverticulitis of large intestine with perforation and abscess without bleeding (principal); I82.621 Acute embolism and thrombosis of deep veins of right upper extremity; N32.1 Vesicointestinal fistula; Z16.12 Extended spectrum beta lactamase (ESBL) resistance; E11.9 Type 2 diabetes mellitus without complications; E87.6 Hypokalemia; F17.210 Nicotine dependence, cigarettes, uncomplicated; B96.20 Unspecified Escherichia coli [E. coli] as the cause of diseases classified elsewhere; Z79.84 Long term (current) use of oral hypoglycemic drugs; Z28.310 Unvaccinated for COVID-19
CPT/HCPCS: 36415; 71260; 74177; 75989; 80048; 80053; 81001; 82947; 83605; 83690; 83735; 84100; 84134; 85025; 85610; 85730; 86140; 87040; 87070; 87075; 87077; 87086; 87088; 87186; 87205; 93971; 96361; 96365; 96375; 99285; G0378; J0696; J1335; J1650; J2185; J2250; J2270; J2310; J2405; J2543; J3010; J3480; J7030; J7120; Q9967